=== PATIENT | female | born 1960 | race African-American/Black ===

== ENCOUNTER 2018-12-29 14:21 | Inpatient (IN) | payer BC, SELFPAY ==
[2018-12-29 15:19] LABS: Absolute Lymphocytes (CBC) 1.3 K/uL (0.7-4.9); Basophils % 0.5 % (0-1.3); Eosinophils % 0.5 % (0-4.4); Lymphocytes % 20.9 % (15.3-44.8); MPV 9.9 fL (7.6-11.3); Monocytes % 12.6 % (3.3-12.3)
[2018-12-29 15:20] LABS: Hematocrit 51.6 % (36.0-45.0)
[2018-12-29] MEDS ORDERED: NA CHLORIDE 0.9% 250 ML ONE (15:25)
[2018-12-29] MEDS ORDERED: LEVALBUTEROL 1.25 MG/3 ML NEB ONE (15:25)
[2018-12-29] MEDS ORDERED: METHYLPREDNISOLONE 125 MG INJ ONE (15:25)
[2018-12-29 15:39] LABS: Troponin (Emerg Dept Use Only) 0.06 ng/mL (0.0-0.045)
--- NOTE | 2018-12-29 16:14 | RAD REPORT ---
EXAM DESCRIPTION: RAD - Chest Single View - 12/29/2018 3:13 pm CLINICAL HISTORY: Cough;COPD Chest pain. COMPARISON: <Comparisons> FINDINGS: Portable technique limits examination quality. Interstitial lung markings are prominent which can indicate bronchitis, viral pneumonitis or mild int erstitial pulmonary edema. The heart is upper limit of normal in size. No displaced fractures.
--- NOTE | 2018-12-29 16:32 | ER ---
Nurse's Notes [facility] Name: Kathy Montalvo Age: 58 yrs Sex: Female : 1960 Arrival Date: 12/29/2018 Time: 14:24 Bed 13 Private MD: Diagnosis: Pulmonary edema;Hypoxemia;Chronic obstructive pulmonary disease, unspecified;Dyspnea, unspecified Presentation: 12/29 14:38 Presenting complaint: Patient states: SOB x 3 DAYS. Transition of care: patient was not bp received from another setting of care. Onset of symptoms was December 26, 2018. Risk Assessment: Do you want to hurt yourself or someone else? Patient reports no desire to harm self or others. Initial Sepsis Screen: Does the patient meet any 2 criteria? RR > 20 per min. HR > 90 bpm. Yes Does the patient have a suspected source of infection? Yes: Productive cough/pneumonia. Care prior to arrival: None. 14:38 Method Of Arrival: Ambulatory bp 14:38 Acuity: ABDIRIZAK 2 bp Historical: - Allergies: 14:40 No Known Allergies; bp - Home Meds: 14:40 fluticasone inhalation inhalation [Active]; Symbicort inhalation inhalation [Active]; bp - PMHx: 14:40 COPD; Hypertension; Asthma; bp - Immunization history:: Adult Immunizations up to date. - Social history:: Smoking status: Patient uses tobacco products, smokes one-half pack cigarettes per day. - Ebola Screening: : No symptoms or risks identified at this time. - Family history:: not pertinent. - Hospitalizations: : No recent hospitalization is reported. Screenin:54 Abuse screen: Denies threats or abuse. Denies injuries from another. Nutritional aj1 screening: No deficits noted. Tuberculosis screening: No symptoms or risk factors identified. Assessment: 14:52 General: Appears distressed, uncomfortable, Behavior is calm, cooperative, appropriate aj1 for age. Pain: Denies pain. Neuro: Level of Consciousness is awake, alert, obeys commands, Oriented to person, place, time, situation. Cardiovascular: Denies chest pain, Heart tones S1 S2 present Patient's skin is warm and dry. Rhythm is sinus tachycardia. 14:53 Respiratory: Reports shortness of breath at rest cough that is productive, labored aj1 breathing Airway is patent Respiratory effort is even, labored, with retractions, Respiratory pattern is regular, symmetrical, tachypnea Breath sounds with rhonchi in left posterior lower lobe and right posterior lower lobe Breath sounds with wheezes bilaterally. GI: No signs and/or symptoms were reported involving the gastrointestinal system. : No signs and/or symptoms were reported regarding the genitourinary system. EENT: No signs and/or symptoms were reported regarding the EENT system. Derm: No signs and/or symptoms reported regarding the dermatologic system. Skin is normal. Musculoskeletal: No signs and/or symptoms reported regarding the musculoskeletal system. Circulation, motion, and sensation intact. 14:55 Reassessment: Dr. Werner at bedside. aj1 15:55 Reassessment: Patient and/or family updated on plan of care and expected duration. Pain aj1 level reassessed. General: Appears in no apparent distress. comfortable, Behavior is calm, cooperative, appropriate for age. Pain: Denies pain. Neuro: Level of Consciousness is awake, alert, obeys commands, Oriented to person, place, time, situation. Cardiovascular: Patient's skin is warm and dry. Respiratory: Airway is patent Respiratory effort is even, unlabored, Respiratory pattern is regular, symmetrical. Derm: No signs and/or symptoms reported regarding the dermatologic system. Skin is pink, warm \T\ dry. normal. Musculoskeletal: No signs and/or symptoms reported regarding the musculoskeletal system. Circulation, motion, and sensation intact. 16:52 Reassessment: Patient appears in no apparent distress at this time. No changes from aj1 previously documented assessment. Patient and/or family updated on plan of care and expected duration. Pain level reassessed. Patient is alert, oriented x 3, equal unlabored respirations, skin warm/dry/pink. 17:27 Reassessment: Patient appears in no apparent distress at this time. No changes from aj1 previously documented assessment. Patient and/or family updated on plan of care and expected duration. Pain level reassessed. Patient is alert, oriented x 3, equal unlabored respirations, skin warm/dry/pink. 18:08 Reassessment: Patient and/or family updated on plan of care and expected duration. Pain aj1 level reassessed. General: Appears in no apparent distress. comfortable, Behavior is calm, cooperative, appropriate for age. Pain: Denies pain. Neuro: Level of Consciousness is awake, alert, obeys commands, Oriented to person, place, time, situation. Cardiovascular: Patient's skin is warm and dry. Respiratory: Airway is patent Respiratory effort is even, unlabored, Respiratory pattern is regular, symmetrical. GI: No signs and/or symptoms were reported involving the gastrointestinal system. Derm: No signs and/or symptoms reported regarding the dermatologic system. Skin is pink, warm \T\ dry. normal. Musculoskeletal: No signs and/or symptoms reported regarding the musculoskeletal system. Circulation, motion, and sensation intact. 19:05 Neuro: Level of Consciousness is awake, alert, obeys commands, Oriented to person, ea place, time, situation. Cardiovascular: Patient's skin is warm and dry. Respiratory: Airway is patent Respiratory effort is even, unlabored, Respiratory pattern is regular, symmetrical, Pt on O2 at 4 L per NC. GI: No signs and/or symptoms were reported involving the gastrointestinal system. Derm: Skin is pink, warm \T\ dry. 19:34 General: Appears in no apparent distress. Behavior is calm, cooperative, appropriate ea for age. Pain: Denies pain. 19:51 Reassessment: Report called to Alesia PEDERSEN. ea 19:55 Reassessment: Patient and/or family updated on plan of care and expected duration. Pain ea level reassessed. Pt alert and oriented, respirations even, pt remains tachypneic, pt admitted to fourth floor, pt left ED via wheelchair with O2 \T\ 4L per n/c, pt tolerating well. Vital Signs: 14:40 BP 193 / 99; Pulse 120; Resp 28; Temp 97.8; Pulse Ox 74% on R/A; Weight 93.44 kg; bp Height 5 ft. 6 in. (167.64 cm); 14:53 Pulse 123; Resp 28; Pulse Ox 94% on 4 lpm NC; aj1 15:55 BP 159 / 108; Pulse 114; Resp 25; Pulse Ox 99% on Nebulizer Mask; aj1 16:54 BP 163 / 102; Pulse 111; Resp 25; Pulse Ox 92% on 4 lpm NC; aj1 17:28 BP 154 / 103; Pulse 121; Resp 25; Pulse Ox 93% on 4 lpm NC; aj1 18:10 BP 161 / 109; Pulse 115; Resp 24; Pulse Ox 95% on 4 lpm NC; aj1 19:36 BP 146 / 91; Pulse 106; Resp 24; Pulse Ox 95% ; ea 14:40 Body Mass Index 33.25 (93.44 kg, 167.64 cm) bp ED Course: 14:24 Patient arrived in ED. mr 14:39 Triage completed. bp 14:40 Arm band placed on. bp 14:43 Deanna Whitmore, RN is Primary Nurse. aj1 14:52 Amilcar Werner MD is Attending Physician. rn 14:54 Patient has correct armband on for positive identification. Bed in low position. Call aj1 light in reach. Side rails up X 1. surveillance system monitor on. Pulse ox on. NIBP on. 14:54 No provider procedures requiring assistance completed. aj1 15:00 Initial lab(s) drawn, by me, sent to lab. First set of blood cultures drawn by me. dh3 Inserted saline lock: 20 gauge in right forearm, using aseptic technique. Blood collected. 15:14 XRAY CXR (1 view) In Process Unspecified. EDMS 15:14 EKG done, by cardiovascular surgical tech. reviewed by Amilcar Werner MD. 3 16:29 Marck Alvarez MD is Hospitalizing Provider. rn 19:50 Patient admitted, IV remains in place. ea Administered Medications: 15:23 Drug: SOLU-Medrol 125 mg Route: IVP; Site: right antecubital; aj1 16:20 Follow up: Response: No adverse reaction aj1 15:23 Drug: Xopenex (3) 1.25 mg Route: Inhalation; aj1 16:20 Follow up: Response: No adverse reaction aj1 15:23 Drug: NS 0.9% 250 ml Route: IV; Rate: 1 bolus; Site: right antecubital; aj1 16:20 Follow up: IV Status: Completed infusion; IV Intake: 250ml aj1 17:26 Drug: Lasix 40 mg Route: IVP; Site: right antecubital; aj1 18:33 Follow up: Response: No adverse reaction aj1 Intake: 16:20 IV: 250ml; Total: 250ml. aj1 Outcome: 16:31 Decision to Hospitalize by Provider. rn 19:36 Instructed on the need for admit, Demonstrated understanding of instructions. ea 19:50 Admitted to Med/surg accompanied by tech, room 408, with oxygen, with chart, Report ea called to Alesia PEDERSEN 19:50 Condition: stable 20:04 Patient left the ED. ea Signatures: Dispatcher [employer] EDDeanna Vasquez RN NUVIA guajardo Enriquez Erma mr WernerAmilcar ames MD MD rn Herrera, Patricia 3 Sola Murphy RN RN ea Peltier, Brian, RN Addie Sanchez 3 Corrections: (The following items were deleted from the chart) 14:54 14:52 Cardiovascular: Patient's skin is warm and dry. Rhythm is sinus tachycardia aj1 aj1
--- NOTE | 2018-12-29 16:32 | EDPHYS ---
Physician Documentation [facility] Name: Kathy Montalvo Age: 58 yrs Sex: Female : 1960 Arrival Date: 12/29/2018 Time: 14:24 Bed 13 Private MD: ED Physician Amilcar Werner HPI: 12/29 15:39 This 58 yrs old Black Female presents to ER via Ambulatory with complaints of Breathing rn Difficulty, Cough. 15:39 The patient has shortness of breath at rest, with light activity. Onset: The rn symptoms/episode began/occurred 5 day(s) ago. Duration: The symptoms are continuous. The patient's shortness of breath is aggravated by exertion, light activity, talking, walking. Associated signs and symptoms: Pertinent positives: productive cough, Pertinent negatives: fever, hemoptysis, loss of consciousness, vomiting. Severity of symptoms: At their worst the symptoms were moderate in the emergency department the symptoms are unchanged. The patient has experienced similar episodes in the past. The patient has not recently seen a physician. Historical: - Allergies: 14:40 No Known Allergies; bp - Home Meds: 14:40 fluticasone inhalation inhalation [Active]; Symbicort inhalation inhalation [Active]; bp - PMHx: 14:40 COPD; Hypertension; Asthma; bp - Immunization history:: Adult Immunizations up to date. - Social history:: Smoking status: Patient uses tobacco products, smokes one-half pack cigarettes per day. - Ebola Screening: : No symptoms or risks identified at this time. - Family history:: not pertinent. - Hospitalizations: : No recent hospitalization is reported. ROS: 15:39 Constitutional: Negative for fever, chills, and weight loss, Eyes: Negative for injury, rn pain, redness, and discharge, Neck: Negative for injury, pain, and swelling, Cardiovascular: Negative for palpitations, + edema, Respiratory: + sob and cough Abdomen/GI: Negative for abdominal pain, nausea, vomiting, diarrhea, and constipation, MS/Extremity: Negative for injury and deformity, Skin: Negative for injury, rash, and discoloration, Neuro: + generalized weakness Exam: 15:39 Constitutional: This is a well developed, well nourished patient who is awake, alert, rn + moderate tachypnea Head/Face: Normocephalic, atraumatic. Eyes: Pupils equal round and reactive to light, extra-ocular motions intact. Lids and lashes normal. Conjunctiva and sclera are non-icteric and not injected. Cornea within normal limits. Periorbital areas with no swelling, redness, or edema. ENT: dry MM Cardiovascular: tachycardic, regular, no murmur Respiratory: + tachypnea with coarse bilateral breath sounds and diffuse wheezing Abdomen/GI: soft, non-tender MS/ Extremity: Pulses equal, no cyanosis. Neurovascular intact. Full, normal range of motion. Equal circumference. 2+ pitting edema bilateral lower ext. Neuro: Awake and alert, GCS 15, oriented to person, place, time, and situation. Cranial nerves II-XII grossly intact. Motor strength 5/5 in all extremities. Sensory grossly intact. Vital Signs: 14:40 BP 193 / 99; Pulse 120; Resp 28; Temp 97.8; Pulse Ox 74% on R/A; Weight 93.44 kg; bp Height 5 ft. 6 in. (167.64 cm); 14:53 Pulse 123; Resp 28; Pulse Ox 94% on 4 lpm NC; aj1 15:55 BP 159 / 108; Pulse 114; Resp 25; Pulse Ox 99% on Nebulizer Mask; aj1 16:54 BP 163 / 102; Pulse 111; Resp 25; Pulse Ox 92% on 4 lpm NC; aj1 17:28 BP 154 / 103; Pulse 121; Resp 25; Pulse Ox 93% on 4 lpm NC; aj1 18:10 BP 161 / 109; Pulse 115; Resp 24; Pulse Ox 95% on 4 lpm NC; aj1 19:36 BP 146 / 91; Pulse 106; Resp 24; Pulse Ox 95% ; ea 14:40 Body Mass Index 33.25 (93.44 kg, 167.64 cm) bp MDM: 14:52 Patient medically screened. rn 16:28 Differential diagnosis: Anemia CHF exacerbation, Chronic Obstructive Pulmonary Disease rn pneumonia, pulmonary edema. Data reviewed: vital signs, nurses notes, lab test result(s), EKG, radiologic studies, and as a result, I will admit patient. Counseling: I had a detailed discussion with the patient and/or guardian regarding: the historical points, exam findings, and any diagnostic results supporting the discharge/admit diagnosis, lab results, radiology results, the need for further work-up and treatment in the hospital. Response to treatment: the patient's symptoms have mildly improved after treatment, and as a result, I will admit patient. Admission orders: after a detailed discussion of the patient's condition and case, the admit orders are written by me. ED course: Spoke with Dr. Alvarez, will admit with steroids and Dr. Clarke consult. . 12/29 15:01 Order name: Blood Culture Adult (2) rn 12/29 15:01 Order name: BMP; Complete Time: 16: rn 12/29 15:01 Order name: CBC with Diff; Complete Time: 16: rn 12/29 15:01 Order name: NT PRO-BNP; Complete Time: 16: rn 12/29 15:01 Order name: Troponin (emerg Dept Use Only); Complete Time: 16: rn 12/29 15:01 Order name: Procalcitonin; Complete Time: 16: rn 12/29 15:01 Order name: XRAY CXR (1 view); Complete Time: 16: rn 12/29 15:01 Order name: EKG; Complete Time: 15: rn 12/29 15:01 Order name: Cardiac monitoring; Complete Time: 15: rn 12/29 15:01 Order name: EKG - Nurse/Tech; Complete Time: 15: rn 12/29 15:01 Order name: IV Saline Lock; Complete Time: 15: rn 12/29 15:01 Order name: Labs collected and sent; Complete Time: 15: rn 12/29 15:01 Order name: O2 Per Protocol; Complete Time: 15: rn 12/29 15:01 Order name: O2 Sat Monitoring; Complete Time: 15: rn Administered Medications: 15:23 Drug: SOLU-Medrol 125 mg Route: IVP; Site: right antecubital; aj1 16:20 Follow up: Response: No adverse reaction 15:23 Drug: Xopenex (3) 1.25 mg Route: Inhalation; aj1 16:20 Follow up: Response: No adverse reaction 15:23 Drug: NS 0.9% 250 ml Route: IV; Rate: 1 bolus; Site: right antecubital; aj1 16:20 Follow up: IV Status: Completed infusion; IV Intake: 250ml aj1 17:26 Drug: Lasix 40 mg Route: IVP; Site: right antecubital; aj1 18:33 Follow up: Response: No adverse reaction aj1 Disposition: 12/29/18 16:31 Hospitalization ordered by Marck Alvarez for Inpatient Admission. Preliminary diagnosis are Pulmonary edema, Hypoxemia, Chronic obstructive pulmonary disease, unspecified, Dyspnea, unspecified. - Bed requested for Telemetry/MedSurg (Inpatient). - Status is Inpatient Admission. ea - Condition is Stable. - Problem is new. - Symptoms have improved. UTI on Admission? No Signatures: Dispatcher [employer] EDMS Gris Allen Angela RN RN aj1 Amilcar Werner MD MD rn Antunez, Elena, RN RN ea Peltier, Brian RN RN bp Corrections: (The following items were deleted from the chart) 17:18 16:31 Hospitalization Ordered by Marck Alvarez MD for Inpatient Admission. Preliminary bd diagnosis is Pulmonary edema; Hypoxemia; Chronic obstructive pulmonary disease, unspecified; Dyspnea, unspecified. Bed requested for Telemetry/MedSurg (Inpatient). Status is Inpatient Admission. Condition is Stable. Problem is new. Symptoms have improved. UTI on Admission? No. rn 20:04 17:18 12/29/2018 16:31 Hospitalization Ordered by Marck Alvarez MD for Inpatient ea Admission. Preliminary diagnosis is Pulmonary edema; Hypoxemia; Chronic obstructive pulmonary disease, unspecified; Dyspnea, unspecified. Bed requested for Telemetry/MedSurg (Inpatient). Status is Inpatient Admission. Condition is Stable. Problem is new. Symptoms have improved. UTI on Admission? No. bd
[2018-12-29] MEDS ORDERED: FUROSEMIDE 20 MG/ 2ML VIAL ONE (17:24)
[2018-12-29] MEDS ORDERED: IPRATROPIUM BROM 0.5MG/2.5ML NEB PRN (20:19)
[2018-12-29] MEDS ORDERED: ONDANSETRON 4 MG/2 ML VIAL IV PRN (20:19)
[2018-12-29] MEDS: NICOTINE 7 MG/PAT TD SCH (21:55)
[2018-12-29] MEDS: METHYLPREDNISOLONE 40 MG INJ IV SCH (21:55)
--- NOTE | 2018-12-29 22:23 | EKG ---
Test Date: 2018-12-29 Test Time: 15:07:[address] Judge: ENEDINA MEASUREMENT RESULTS: Intervals: Rate: 117 WV: 158 QRSD: 78 QT: 318 QTc: 443 [place]: P: 79 WV: 158 QRS: 63 T: 79 INTERPRETIVE STATEMENTS: Sinus tachycardia Biatrial enlargement Anterior infarct, age undetermined Abnormal ECG No previous ECG available for comparison Electronically Signed On 12-29-18 22:22:31 CDT by Tobin Briggs
[2018-12-30] MEDS: ALBUTEROL 2.5 MG/3 ML NEB SOL NEB PRN ×2 (00:56→04:50)
[2018-12-30] MEDS: METHYLPREDNISOLONE 40 MG INJ IV SCH (01:00)
[2018-12-30 01:05] LABS: Urine Appearance CLEAR; Urine Bilirubin NEGATIVE (NEG); Urine Blood 2+ (NEG); Urine Color YELLOW; Urine Glucose 2+ (NEG); Urine Protein 2+ (NEG); Urine pH 5.5 (5.0-7.0)
[2018-12-30 01:09] LABS: Urine Microscopic Reflex ORDER UMIC
[2018-12-30 02:30] LABS: Urine Bacteria <20 /HPF (<20); Urine Culture Reflex Order NOT NEEDED; Urine RBC <5 /HPF (NONE SEEN)
[2018-12-30 04:28] LABS: Absolute Lymphocytes (CBC) 0.6 K/uL (0.7-4.9); Basophils % 0.6 % (0-1.3); MPV 10.1 fL (7.6-11.3); Monocytes % 2.7 % (3.3-12.3); RBC Red Blood Cell Count 6.55 M/uL (3.86-4.86)
[2018-12-30 04:50] LABS: Potassium 4.2 mmol/L (3.5-5.1)
[2018-12-30] MEDS ORDERED: PNEUMOCOCCAL VACCINE 0.5 ML IMVAC ONE (08:00)
--- NOTE | 2018-12-30 08:36 | P.CNS ---
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 coughing up some sputum Allergies No Known Allergies Allergy (Unverified 12/29/18 17:50) Home Medications: Budesonide/Formoterol Fumarate [Symbicort 160-4.5 Mcg Inhaler] 1 puff IH BID Fluticasone/Salmeterol [Fluticasone-Salmeterol 113-14] 1 puff IH BID 12/30/18 Spironolact/Hydrochlorothiazid [Aldactazide 25-25 Tablet] 1 each PO DAILY - Past Medical/Surgical History Diabetic: No -: COPD -: HTN - Social History Smoking Status: Current every day smoker Alcohol use: No CD- Drugs: No Caffeine use: No Place of Residence: Home Review of Systems 10-point ROS is otherwise unremarkable General: Weakness Respiratory: Cough, Shortness of Breath Cardiovascular: Edema Physical Examination Temp Pulse Resp BP Pulse Ox 97.9 F 104 H 22 H 168/89 H 94 12/30/18 00:00 12/30/18 00:00 12/30/18 00:00 12/30/18 00:55 12/30/18 00:00 General: Alert Neck: Supple Respiratory: Rhonchi/gurgles Cardiovascular: Normal S1 S2, Edema (2+ edema) Gastrointestinal: Normal bowel sounds, Soft and benign Laboratory Data (last 24 hrs) 12/29/18 15:00: WBC 6.0, Hgb 17.7 H, Hct 51.6 H, Plt Count 128 L 12/29/18 15:00: Sodium 145, Potassium 4.0, BUN 16, Creatinine 0.97, Glucose 176 H - Problems (1) COPD exacerbation Current Visit: Yes Status: Acute Plan: Patient is 58 years of age active smoker history of COPD admitted with an exacerbation chest x-rays clear patient is mildly polycythemic no evidence of sepsis at an antibiotic in addition to long-acting nebulized bronchodilator vital signs are stable (2) Sleep apnea Current Visit: Yes Status: Acute Plan: Patient complains of loud snoring excessive daytime somnolence at risk for sleep apnea and will need a sleep study as an outpatient
[2018-12-30] MEDS: ARFORMOTEROL TARTRATE 15 MCG/2 ML VIAL.NEB NEB SCH ×2 (08:45→19:40)
[2018-12-30] MEDS: IPRATROPIUM BROM 0.5MG/2.5ML NEB SCH ×3 (08:45→19:40)
[2018-12-30] MEDS ORDERED: HYDROCHLOROTHIAZID PO SCH (09:00)
[2018-12-30] MEDS ORDERED: SPIRONOLACT PO SCH (09:00)
[2018-12-30] MEDS: hydroCHLOROthiazide 25 MG TAB PO SCH (10:24)
[2018-12-30] MEDS: predniSONE 20 MG TAB PO SCH ×2 (10:25→20:08)
[2018-12-30] MEDS: levoFLOXacin 500 MG TAB PO SCH (10:25)
[2018-12-30] MEDS: NICOTINE 7 MG/PAT TD SCH (10:25)
[2018-12-30] MEDS: ASPIRIN EC 81 MG TAB PO SCH (10:25)
[2018-12-30] MEDS: SPIRONOLACTONE 25 MG TABLET PO SCH (10:35)
--- NOTE | 2018-12-30 13:32 | ECHO ---
HEIGHT: 5 ft 6 in WEIGHT: 220 lb 0 oz DATE OF STUDY: 12/30/[address]: Amilcar Werner JR, MD 2-DIMENSIONAL: YES M.MODE: YES DOPPLER: YES COLOR FLOW: YES TDS: NO PORTABLE: NO DEFINITY: NO BUBBLE STUDY: NO DIAGNOSIS: PULMONARY EDEMA, HYPOXEMIA CARDIAC HISTORY: CATHERIZATION: NO SURGERY: NO PROSTHETIC VALVE: NO PACEMAKER: NO MEASUREMENTS (cm) DIASTOLIC (NORMALS) SYSTOLIC (NORMALS) IVSd 1.3 (0.6-1.2) LA Diam 3.3 (1.9-4.0) LVEF 62% LVIDd 3.2 (3.5-5.7) LVIDs 2.2 (2.0-3.5) %FS 32% LVPWd 1.5 (0.6-1.2) Ao Diam 2.7 (2.0-3.7) 2 DIMENSIONAL ASSESSMENT: RIGHT ATRIUM: NORMAL LEFT ATRIUM: NORMAL RIGHT VENTRICLE: NORMAL LEFT VENTRICLE: NORMAL TRICUSPID VALVE: NORMAL MITRAL VALVE: NORMAL PULMONIC VALVE: NORMAL AORTIC VALVE: NORMAL PERICARDIAL EFFUSION: NONE AORTIC ROOT: NORMAL LEFT VENTRICULAR WALL MOTION: NORMAL DOPPLER/COLOR FLOW: TRACE MITRAL AND TRICUSPID REGURGITATION. COMMENTS: TRACE MITRAL AND TRICUSPID REGURGITATION. NORMAL RIGHT VENTRICULAR SYSTOLIC PRESSURE. NORMAL LEFT VENTRICULAR SIZE AND FUNCTION. NO WALL MOTION ABNORMALITY. NO EFFUSION. TECHNOLOGIST: Brianda RUIZ
--- NOTE | 2018-12-30 16:58 | HP ---
Date of Admission: 12/29/2018 Chief Complaint: Dyspnea, wheezing. History Of Present Illness: A 58-year-old female who is known to have severe COPD, was brought to [facility] emergency room because of wheezing. The patient had evaluation done. There was no evidence of pne umonia. The patient ran out of her O2 in her O2 tank. The patient denied any history of chest pain or other cardiac symptoms. The patient is admitted. Past Medical History: Positive for COPD. The patient has been having swelling of the legs for which she takes diuretics. The patient does not have any history of diabetes or other chronic illness. Family History: Negative. Medications: The patient is on Symbicort, home O2, and albuterol. Allergies: NONE. Review of Systems: The patient denied any chest pain, hemoptysis. Physical Examination: General: Revealed a 58-year-old obese female with audible wheezing. Vital Signs: Normal. HEENT: Negative. Neck: Supple. JVD negative. Chest: Bilateral wheezes. Heart: Regular. Abdomen: Soft. Extremities: Bilateral pedal edema noted. Assessment: 1.Chronic obstructive pulmonary disease exacerbation. 2.Chronic obstructive pulmonary disease. 3.Rule out cor pulmonale. Plan: The patient is already on oral diuretics. She may need a stronger dose. She is on IV steroid s. Pulmonary consultation to be done today. ELDA/PAULY Voice ID: [id number]
[2018-12-31] MEDS: ALBUTEROL 2.5 MG/3 ML NEB SOL NEB PRN (01:25)
[2018-12-31] MEDS: IPRATROPIUM BROM 0.5MG/2.5ML NEB SCH ×4 (01:25→19:45)
[2018-12-31 06:38] LABS: Potassium 4.5 mmol/L (3.5-5.1); Thyroid Stimulating Hormone 0.413 uIU/mL (0.360-3.740)
[2018-12-31] MEDS: ARFORMOTEROL TARTRATE 15 MCG/2 ML VIAL.NEB NEB SCH ×2 (07:40→19:45)
[2018-12-31] MEDS: ASPIRIN EC 81 MG TAB PO SCH (09:03)
[2018-12-31] MEDS: hydroCHLOROthiazide 25 MG TAB PO SCH (09:03)
[2018-12-31] MEDS: NICOTINE 7 MG/PAT TD SCH (09:04)
[2018-12-31] MEDS: levoFLOXacin 500 MG TAB PO SCH (09:04)
[2018-12-31] MEDS: SPIRONOLACTONE 25 MG TABLET PO SCH (09:04)
[2018-12-31] MEDS: predniSONE 20 MG TAB PO SCH ×2 (09:05→20:58)
--- NOTE | 2019-01-01 01:19 | PN ---
The patient has still some wheezing, however, she is able to walk in the room. Her sputum is scanty. I spoke to the staff nurse regarding her need for portable oxygen, etc. Social service is planning to find a solution for her. Meanwhile, she will be continued on the same management. ELDA/PAULY Voice ID: [id number] Report ID: [id number]
[2019-01-01] MEDS: ALBUTEROL 2.5 MG/3 ML NEB SOL NEB PRN (01:45)
[2019-01-01] MEDS: IPRATROPIUM BROM 0.5MG/2.5ML NEB SCH ×2 (01:45→09:00)
[2019-01-01 06:46] VITALS: BMI 35.9
[2019-01-01] MEDS: hydroCHLOROthiazide 25 MG TAB PO SCH (08:51)
[2019-01-01] MEDS: ASPIRIN EC 81 MG TAB PO SCH (08:52)
[2019-01-01] MEDS: NICOTINE 7 MG/PAT TD SCH (08:52)
[2019-01-01] MEDS: levoFLOXacin 500 MG TAB PO SCH (08:52)
[2019-01-01] MEDS: predniSONE 20 MG TAB PO SCH (08:52)
--- NOTE | 2019-01-01 08:53 | P.PN ---
Subjective Date of Service: 01/01/19 Chief Complaint: COPD exacerbation Patient has improved significantly since admission still has some shortness of breath Review of Systems General: Weakness Respiratory: Shortness of Breath Physical Examination - Vital Signs Temperature: 97.8 F Blood Pressure: 188/89 Pulse: 101 Respirations: 24 Pulse Ox (%): 92 - Physical Exam General: Alert, In no apparent distress, Oriented x3 HEENT: Atraumatic Respiratory: Clear to auscultation bilaterally, Diminished Cardiovascular: No edema, Normal S1 S2 Assessment & Plan - Problems (Diagnosis) (1) COPD exacerbation Current Visit: Yes Status: Acute Plan: Patient is 58 years of age admitted with COPD exacerbation can be discharged home low-dose prednisone 10 mg twice a day continue with bronchodilator 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
[2019-01-01] MEDS: SPIRONOLACTONE 25 MG TABLET PO SCH (08:55)
[2019-01-01] MEDS: ARFORMOTEROL TARTRATE 15 MCG/2 ML VIAL.NEB NEB SCH (09:00)
[2019-01-01] MEDS ORDERED: AMLODIPINE 5 MG TAB PO ONE (10:14)
[2019-01-01 11:10] VITALS: O2SAT 93
[2019-01-01 12:06] VITALS: BP 156/90; TEMP 98.5
== END 2019-01-01 12:41 | disposition home or self-care (01) | DRG 192 ==
LOC: ER 14:21 → ERHOLD 16:34 → 4TH 19:48
PROVIDERS: ADMIT Internal Medicine; ATTEND Internal Medicine
DX: J44.1 Chronic obstructive pulmonary disease with (acute) exacerbation (principal); Z99.81 Dependence on supplemental oxygen; I10 Essential (primary) hypertension; F17.210 Nicotine dependence, cigarettes, uncomplicated; G47.30 Sleep apnea, unspecified; E66.9 Obesity, unspecified; Z68.35 Body mass index [BMI] 35.0-35.9, adult; Z23 Encounter for immunization
CPT/HCPCS: 36415; 71045; 80048; 81003; 81015; 83880; 84145; 84443; 84484; 85025; 87040; 90471; 90670; 93005; 93306; 94640; 94760; 96365; 96375; 99285; J1940; J2920; J2930; J7512; J7605

== ENCOUNTER 2019-05-14 12:08 | Inpatient (IN) | payer SELFPAY ==
[2019-05-14] MEDS ORDERED: METHYLPREDNISOLONE 125 MG INJ ONE (12:35)
[2019-05-14] MEDS ORDERED: IPRATROPIUM BROM 0.5MG/2.5ML ONE (12:36)
[2019-05-14] MEDS ORDERED: ALBUTEROL 2.5 MG/3 ML NEB SOL ONE (12:36)
[2019-05-14 12:56] LABS: Absolute Lymphocytes (CBC) 1.3 K/uL (0.7-4.9); Basophils % 0.5 % (0-1.3); Hematocrit 53.9 % (36.0-45.0); Lymphocytes % 12.2 % (15.3-44.8); MPV 8.7 fL (7.6-11.3); RBC Red Blood Cell Count 6.13 M/uL (3.86-4.86)
[2019-05-14 12:58] LABS: Protime INR 1.04
--- NOTE | 2019-05-14 13:01 | RAD REPORT ---
EXAM DESCRIPTION: Adri Single View05/14/2019 12:55 pm CLINICAL HISTORY: Shortness of breath COMPARISON: December 2018 FINDINGS: The lungs appear clear of acute infiltrate. The heart is normal size IMPRESSION: No acute abnormalities displayed
[2019-05-14 13:02] LABS: ALT/SGPT 40 U/L (12-78); AST/SGOT 25 U/L (15-37); Albumin 3.4 g/dL (3.4-5.0); Alkaline Phosphatase 138 U/L (45-117); BUN Blood Urea Nitrogen 17 mg/dL (7-18); Bicarbonate 35 mmol/L (21-32); Bilirubin Direct 0.2 mg/dL (0-0.2); Bilirubin Total 0.6 mg/dL (0.2-1.0); CKMB Creatine Kinase MB 4.5 ng/mL (0.3-3.6); Creatine Phosphokinase 186 U/L (26-192); Glucose Level 200 mg/dL (74-106); Potassium 3.6 mmol/L (3.5-5.1); Protein, Total 8.2 g/dL (6.4-8.2); Sodium Level 139 mmol/L (136-145); Troponin (Emerg Dept Use Only) < 0.02 ng/mL (0.0-0.045)
[2019-05-14] MEDS ORDERED: Levofloxacin500mg IV 500 MG/100 ML BAG IV ONE (13:03)
[2019-05-14 13:35] LABS: Arterial Blood Carboxyhemoglob 5.4 % (0-1.5); Blood Gas Oxyhemoglobin 84.1 % (94-97); Blood O2 Saturation 89.7 % (92-98.5)
--- NOTE | 2019-05-14 14:10 | RAD REPORT ---
EXAM DESCRIPTION: CT - Chest For Pe Angio - 05/14/2019 1:59 pm CLINICAL HISTORY: Shortness of breath COMPARISON: None. TECHNIQUE: Dynamically enhanced axial 3 mm thick images of the chest were obtained during administra tion of <100> mL Isovue 370 IV contrast. Coronal and oblique reconstruction images were generated and reviewed. Exam utilizes a protocol for optimal evaluation of pulmonary arterial tree. Maximum intensity projections 3D imaging was utilized All CT scans are performed using dose optimization technique as appropriate and may include automated exposure control or mA/KV adjustment according to patient size. FINDINGS: A pulmonary embolus is not seen. A thoracic aortic aneurysm is not noted. A pleural effusion is not seen. A pericardial effusion is not seen. Mild left lower lobe opacities IMPRESSION: Negative for a pulmonary embolism. Mild left lower lobe opacities may indicate a mild pneumonia
--- NOTE | 2019-05-14 14:24 | EDPHYS ---
Physician Documentation [facility] Name: Kathy Montalvo Age: 59 yrs Sex: Female : 1960 Arrival Date: 05/14/2019 Time: 12:11 Bed 4 Private MD: ED Physician Shelton Royal HPI: 05/14 12:28 This 59 yrs old Black Female presents to ER via Ambulatory with complaints of Shortness jr8 Of Breath. 12:28 The patient has shortness of breath at rest. Onset: The symptoms/episode began/occurred jr8 gradually, 4 day(s) ago. Duration: The symptoms are continuous, and are steadily getting worse. The patient's shortness of breath is aggravated by coughing, light activity, walking. Associated signs and symptoms: Pertinent positives: productive cough, fever. Severity of symptoms: At their worst the symptoms were moderate in the emergency department the symptoms are unchanged. The patient has not experienced similar symptoms in the past. The patient has not recently seen a physician. History of COPD with intermittent use of oxygen at home as needed. Now requiring it more frequently. Stated that she had cold like symptoms on Saturday that is much worse now and cannot tolerate the shortness of breath . Historical: - Allergies: 12:16 No Known Allergies; hb - Home Meds: 12:16 fluticasone inhalation [Active]; ProAir HFA inhalation inhalation [Active]; Albuterol hb Nebulizer [Active]; - PMHx: 12:16 COPD; Asthma; Hypertension; hb - Immunization history:: Adult Immunizations up to date. - Social history:: Smoking status: Patient/guardian denies using tobacco. - Ebola Screening: : No symptoms or risks identified at this time. ROS: 12:28 Eyes: Negative for injury, pain, redness, and discharge, ENT: Negative for injury, jr8 pain, and discharge, Neck: Negative for injury, pain, and swelling, Cardiovascular: Negative for chest pain, palpitations, and edema, Abdomen/GI: Negative for abdominal pain, nausea, vomiting, diarrhea, and constipation, Back: Negative for injury and pain, MS/Extremity: Negative for injury and deformity, Skin: Negative for injury, rash, and discoloration, Neuro: Negative for headache, weakness, numbness, tingling, and seizure. 12:28 Respiratory: Positive for cough, dyspnea on exertion, shortness of breath. Exam: 12:28 Eyes: Pupils equal round and reactive to light, extra-ocular motions intact. Lids and jr8 lashes normal. Conjunctiva and sclera are non-icteric and not injected. Cornea within normal limits. Periorbital areas with no swelling, redness, or edema. ENT: Nares patent. No nasal discharge, no septal abnormalities noted. Tympanic membranes are normal and external auditory canals are clear. Oropharynx with no redness, swelling, or masses, exudates, or evidence of obstruction, uvula midline. Mucous membranes moist. Neck: Trachea midline, no thyromegaly or masses palpated, and no cervical lymphadenopathy. Supple, full range of motion without nuchal rigidity, or vertebral point tenderness. No Meningismus. Abdomen/GI: Soft, non-tender, with normal bowel sounds. No distension or tympany. No guarding or rebound. No evidence of tenderness throughout. Back: No spinal tenderness. No costovertebral tenderness. Full range of motion. Skin: Warm, dry with normal turgor. Normal color with no rashes, no lesions, and no evidence of cellulitis. MS/ Extremity: Pulses equal, no cyanosis. Neurovascular intact. Full, normal range of motion. 12:28 Cardiovascular: Rate: tachycardic, Rhythm: regular, Pulses: Pulses are 2+ in right radial artery and left radial artery. Heart sounds: normal, normal S1and S2, no S3 or S4, no murmur, no rub, no gallop, Edema: 2+ edema to level of left midcalf, left ankle, left foot, right midcalf, right ankle and right foot, JVD: is not appreciated. 12:28 Respiratory: mild respiratory distress is noted, Respirations: labored breathing, tachypnea, Breath sounds: decreased breath sounds, that are mild, are scattered, Respiratory rate: 24 Vital Signs: 12:14 BP 153 / 88; Pulse 133; Resp 24; Temp 98.3; Pulse Ox 75% on R/A; Weight 107.5 kg; hb Height 5 ft. 6 in. (167.64 cm); Pain 8/10; 12:16 Pulse Ox 93% on 4 lpm NC; aa5 12:45 BP 145 / 84; Pulse 122; Resp 26 S; Pulse Ox 100% on Nebulizer Mask; aa5 13:00 BP 120 / 80; Pulse 112; Resp 26 S; Pulse Ox 96% on 3 lpm NC; aa5 14:00 BP 130 / 84; Pulse 115; Resp 24 S; Pulse Ox 99% on BiPAP; aa5 15:10 BP 124 / 82; Pulse 110; Resp 20 S; Pulse Ox 99% on BiPAP; aa5 16:30 BP 130 / 82; Pulse 104; Resp 18 S; Temp 98.0(TE); Pulse Ox 99% on BiPAP; aa5 17:20 BP 133 / 82; Pulse 100; Resp 22 S; Temp 98.0(TE); Pulse Ox 98% on BiPAP; Pain 0/10; aa5 12:14 Body Mass Index 38.25 (107.50 kg, 167.64 cm) hb MDM: 12:30 Patient medically screened. jr8 14:15 Data reviewed: vital signs, nurses notes, lab test result(s), EKG, radiologic studies, [facility] [place] CT scan, plain films. Data interpreted: Pulse oximetry: on room air is 75 %. Interpretation: hypoxia. Plan: will initiate a nebulizer treatment. Counseling: I had a detailed discussion with the patient and/or guardian regarding: the historical points, exam findings, and any diagnostic results supporting the discharge/admit diagnosis, lab results, radiology results, the need for further work-up and treatment in the hospital. Physician consultation: Marck Alvarez MD was called at 14:15, was contacted at 14:15, regarding admission, to the telemetry unit. consult, patient's condition, and will see patient would like consultation with Dr. Clarke. 05/14 12:24 Order name: ABG; Complete Time: 14:03 05/14 12:24 Order name: Basic Metabolic Panel; Complete Time: 13:16 05/14 12:24 Order name: Blood Culture Adult (2) [facility] [place] 05/14 12:24 Order name: CBC with Diff; Complete Time: 13:16 05/14 12:24 Order name: Ckmb; Complete Time: 13:16 05/14 12:24 Order name: CPK; Complete Time: 13:16 05/14 12:24 Order name: Lactate; Complete Time: 13:22 05/14 12:24 Order name: LFT's; Complete Time: 13:16 [facility] [place] 05/14 12:24 Order name: Procalcitonin; Complete Time: 13:34 [facility] [place] 05/14 12:24 Order name: Protime (+inr); Complete Time: 13:16 [facility] [place] 05/14 12:24 Order name: Ptt, Activated; Complete Time: 13:16 [facility] [place] 05/14 12:24 Order name: Troponin (emerg Dept Use Only); Complete Time: 13:16 [facility] [place] 05/14 12:43 Order name: Glucose, Ancillary Testing; Complete Time: 12:50 [facility] 05/14 13:17 Order name: Flu; Complete Time: 14:03 [facility] [place] 05/14 12:24 Order name: Chest Single View XRAY; Complete Time: 13:16 [facility] [place] 05/14 12:24 Order name: Accucheck; Complete Time: 12:32 [facility] [place] 05/14 12:24 Order name: Cardiac monitoring; Complete Time: 12:32 [facility] [place] 05/14 12:24 Order name: EKG - Nurse/Tech; Complete Time: 12:32 [facility] [place] 05/14 12:26 Order name: EKG; Complete Time: 12:27 [facility] 05/14 13:18 Order name: DD; Complete Time: 13:41 [facility] [place] 05/14 13:40 Order name: BIPAP [facility] [place] 05/14 13:41 Order name: CT Chest For PE Angio; Complete Time: 14:23 [facility] [place] 05/14 15:32 Order name: CONS Physician Consult [facility] 05/14 15:33 Order name: Urine Dipstick-Ancillary [facility] 05/14 17:48 Order name: Lactate Sepsis 2 HR Follow-up; Complete Time: 06:25 [facility] 05/14 12:24 Order name: IV Saline Lock - Large Bore; Complete Time: 12:32 [facility] [place] 05/14 12:24 Order name: Labs collected and sent; Complete Time: 12:32 [facility] [place] 05/14 12:24 Order name: O2 Per Protocol; Complete Time: 12:32 [facility] [place] 05/14 12:24 Order name: O2 Sat Monitoring; Complete Time: 12:32 [facility] [place] 05/14 12:24 Order name: Urine Dipstick-Ancillary (obtain specimen); Complete Time: 15:39 [facility] [place] Administered Medications: 12:40 Drug: Albuterol - atroVENT (3:1) (2.5 mg - 0.5 mg) 3 ml Route: Nebulizer; aa5 13:00 Follow up: Response: No adverse reaction aa5 12:40 Drug: SOLU-Medrol 125 mg Route: IVP; Site: right forearm; aa5 12:50 Follow up: Response: No adverse reaction aa5 12:54 Drug: LevaQUIN 500 mg Volume: 100 ml; Route: IVPB; Infused Over: 60 mins; Site: right jl7 forearm; 13:54 Follow up: Response: No adverse reaction; IV Status: Completed infusion aa5 14:45 Drug: NS 0.9% 1000 ml Route: IV; Rate: 1000 ml; Site: right forearm; aa5 16:30 Follow up: IV Intake: 1000ml aa5 14:45 Drug: NS 0.9% 1000 ml Route: IV; Rate: 1000 ml; Site: right forearm; aa5 15:30 Follow up: IV Status: Completed infusion; IV Intake: 1000ml aa5 Point of Care Testing: Blood Glucose: 12:32 Blood Glucose: 224 mg/dL; jl7 Ranges: Critical Glucose Levels:Adult <50 mg/dl or >400 mg/dl <40 mg/dl or >180 mg/dl Disposition: 05/15 09:16 Co-signature as Attending Physician, Shelton Royal MD I agree with the assessment and kdr plan of care. Disposition: 05/14/19 14:23 Hospitalization ordered by Marck Alvarez for Inpatient Admission. Preliminary diagnosis are Chronic obstructive pulmonary disease with (acute) exacerbation, Acute respiratory failure with hypoxia, Dehydration, Pneumonia due to other specified bacteria. - Bed requested for Telemetry/MedSurg (Inpatient). - Status is Inpatient Admission. iw - Condition is Stable. - Problem is new. - Symptoms have improved. UTI on Admission? No Signatures: Dispatcher [employer] EDMS Shelton Royal MD MD kdr Cheli Haines RN RN Leonora Huffman RN RN aa5 Andre Streeter PA PA jr8 Arabella Alejandro RN RN Twin Lynch RN RN jl7 Cristin Sevilla Corrections: (The following items were deleted from the chart) 05/14 14:38 14:23 Hospitalization Ordered by Marck Alvarez MD for Inpatient Admission. Preliminary eb diagnosis is Chronic obstructive pulmonary disease with (acute) exacerbation; Acute respiratory failure with hypoxia; Dehydration; Pneumonia due to other specified bacteria. Bed requested for Telemetry/MedSurg (Inpatient). Status is Inpatient Admission. Condition is Stable. Problem is new. Symptoms have improved. UTI on Admission? No. jr8 16:36 14:38 05/14/2019 14:23 Hospitalization Ordered by Marck Alvarez MD for Inpatient eb Admission. Preliminary diagnosis is Chronic obstructive pulmonary disease with (acute) exacerbation; Acute respiratory failure with hypoxia; Dehydration; Pneumonia due to other specified bacteria. Bed requested for Telemetry/MedSurg (Inpatient). Status is Inpatient Admission. Condition is Stable. Problem is new. Symptoms have improved. UTI on Admission? No. eb 17:54 16:36 05/14/2019 14:23 Hospitalization Ordered by Marck Alvarez MD for Inpatient iw Admission. Preliminary diagnosis is Chronic obstructive pulmonary disease with (acute) exacerbation; Acute respiratory failure with hypoxia; Dehydration; Pneumonia due to other specified bacteria. Bed requested for Telemetry/MedSurg (Inpatient). Status is Inpatient Admission. Condition is Stable. Problem is new. Symptoms have improved. UTI on Admission? No. eb
--- NOTE | 2019-05-14 14:24 | ER ---
Nurse's Notes [facility] Name: Kathy Montalvo Age: 59 yrs Sex: Female : 1960 Arrival Date: 05/14/2019 Time: 12:11 Bed 4 Private MD: Diagnosis: Chronic obstructive pulmonary disease with (acute) exacerbation;Acute respiratory failure with hypoxia;Dehydration;Pneumonia due to other specified bacteria Presentation: 05/14 12:13 Presenting complaint: SOB and intermittent sharp left sided chest pain x 3-4 days. hb Transition of care: patient was not received from another setting of care. Onset of symptoms was May 11, 2019. Risk Assessment: Do you want to hurt yourself or someone else? Patient reports no desire to harm self or others. Care prior to arrival: None. 12:13 Method Of Arrival: Ambulatory 12:13 Acuity: ABDIRIZAK 2 12:15 Initial Sepsis Screen: Does the patient meet any 2 criteria? RR > 20 per min. HR > 90 aa5 bpm. Yes Does the patient have a suspected source of infection? Yes: Productive cough/pneumonia If YES to both, name of provider notified: Shelton Royal MD. Historical: - Allergies: 12:16 No Known Allergies; hb - Home Meds: 12:16 fluticasone inhalation [Active]; ProAir HFA inhalation inhalation [Active]; Albuterol hb Nebulizer [Active]; - PMHx: 12:16 COPD; Asthma; Hypertension; hb - Immunization history:: Adult Immunizations up to date. - Social history:: Smoking status: Patient/guardian denies using tobacco. - Ebola Screening: : No symptoms or risks identified at this time. Screenin:20 Abuse screen: Denies threats or abuse. Nutritional screening: No deficits noted. aa5 Tuberculosis screening: No symptoms or risk factors identified. Fall Risk None identified. Assessment: 12:16 General: Appears uncomfortable, Behavior is calm, cooperative. Pain: Denies pain. aa5 Neuro: Level of Consciousness is awake, alert, obeys commands, Oriented to person, place, time, situation. Cardiovascular: Heart tones S1 S2 present Edema 2+ pitting edema noted to shana lower extremities, pt states "my legs are always swollen and they are about the same right now" Rhythm is sinus tachycardia. Respiratory: Reports shortness of breath cough Airway is patent Respiratory effort is labored, Respiratory pattern is tachypnea Breath sounds are diminished bilaterally. GI: Abdomen is round Bowel sounds present X 4 quads. Abd is soft and non tender X 4 quads. : No signs and/or symptoms were reported regarding the genitourinary system. EENT: No signs and/or symptoms were reported regarding the EENT system. Derm: Skin is dry, Skin is normal, Skin temperature is warm. Musculoskeletal: Range of motion: intact in all extremities. 12:55 Neuro: Level of Consciousness is awake, alert, obeys commands, Oriented to person, aa5 place, time, situation. Respiratory: Airway is patent Respiratory effort is labored, Respiratory pattern is tachypnea. Derm: Skin is dry, Skin is normal, Skin temperature is warm. 12:55 Reassessment: Pt reports SOB has improved. . aa5 13:40 Reassessment: Bi-PAP placed by RT. Bi-PAP settings: IPAP 13, EPAP 6, Rate 14, O2 40%. . aa5 13:54 Reassessment: Pt tolerating Bi-PAP well. Awaiting disposition. . Neuro: Level of aa5 Consciousness is awake, alert, obeys commands, Oriented to person, place, time, situation. Respiratory: Airway is patent Respiratory effort is even, unlabored, Respiratory pattern is regular, symmetrical. Derm: Skin is dry, Skin is normal, Skin temperature is warm. 15:10 Reassessment: Pt assisted with bedside commode, pt tolerated well. Urine specimen aa5 collected. Pt placed back in bed. Bed remains in low positions, side rails x 2, call sherman within reach. . 15:10 Neuro: Level of Consciousness is awake, alert, obeys commands, Oriented to person, aa5 place, time, situation. Respiratory: Airway is patent Respiratory effort is even, unlabored, Respiratory pattern is regular, symmetrical. Derm: Skin is dry, Skin is normal, Skin temperature is warm. 15:10 Reassessment: Pt notified of wait time for room assignment, pt verbalized aa5 understanding. . 16:00 Reassessment: Pt resting in bed with eyes closed, respirations even and unlabored, skin aa5 is normal/warm/dry. . 16:33 Reassessment: Lab at bedside collecting repeat lactate at this time . aa5 17:30 Neuro: Level of Consciousness is awake, alert, obeys commands, Oriented to person, aa5 place, time, situation. Respiratory: Airway is patent Respiratory effort is even, unlabored, Respiratory pattern is regular, symmetrical. Derm: Skin is dry, Skin is normal, Skin temperature is warm. Vital Signs: 12:14 BP 153 / 88; Pulse 133; Resp 24; Temp 98.3; Pulse Ox 75% on R/A; Weight 107.5 kg; hb Height 5 ft. 6 in. (167.64 cm); Pain 8/10; 12:16 Pulse Ox 93% on 4 lpm NC; aa5 12:45 BP 145 / 84; Pulse 122; Resp 26 S; Pulse Ox 100% on Nebulizer Mask; aa5 13:00 BP 120 / 80; Pulse 112; Resp 26 S; Pulse Ox 96% on 3 lpm NC; aa5 14:00 BP 130 / 84; Pulse 115; Resp 24 S; Pulse Ox 99% on BiPAP; aa5 15:10 BP 124 / 82; Pulse 110; Resp 20 S; Pulse Ox 99% on BiPAP; aa5 16:30 BP 130 / 82; Pulse 104; Resp 18 S; Temp 98.0(TE); Pulse Ox 99% on BiPAP; aa5 17:20 BP 133 / 82; Pulse 100; Resp 22 S; Temp 98.0(TE); Pulse Ox 98% on BiPAP; Pain 0/10; aa5 12:14 Body Mass Index 38.25 (107.50 kg, 167.64 cm) hb ED Course: 12:11 Patient arrived in ED. mr 12:12 Shelton Royal MD is Attending Physician. kdr 12:14 Triage completed. hb 12:14 Arm band placed on. hb 12:18 Andre Streeter PA is PHCP. jr8 12:20 Patient has correct armband on for positive identification. aa5 12:36 EKG done, by dev technical mgr. reviewed by Andre REMY. at1 12:39 Initial lab(s) drawn, by me, sent to lab. Inserted saline lock: 20 gauge in right aa5 forearm, using aseptic technique. Blood collected. 12:39 First set of blood cultures drawn by me. aa5 12:43 Leonora Huffman, NUVIA is Primary Nurse. aa5 12:50 Second set of blood cultures drawn by me. aa5 12:55 Chest Single View XRAY In Process Unspecified. EDMS 14:00 CT Chest For PE Angio In Process Unspecified. EDMS 14:22 Marck Alvarez MD is Hospitalizing Provider. jr8 17:30 No provider procedures requiring assistance completed. Patient admitted, IV remains in aa5 place. Administered Medications: 12:40 Drug: Albuterol - atroVENT (3:1) (2.5 mg - 0.5 mg) 3 ml Route: Nebulizer; aa5 13:00 Follow up: Response: No adverse reaction aa5 12:40 Drug: SOLU-Medrol 125 mg Route: IVP; Site: right forearm; aa5 12:50 Follow up: Response: No adverse reaction aa5 12:54 Drug: LevaQUIN 500 mg Volume: 100 ml; Route: IVPB; Infused Over: 60 mins; Site: right jl7 forearm; 13:54 Follow up: Response: No adverse reaction; IV Status: Completed infusion aa5 14:45 Drug: NS 0.9% 1000 ml Route: IV; Rate: 1000 ml; Site: right forearm; aa5 16:30 Follow up: IV Intake: 1000ml aa5 14:45 Drug: NS 0.9% 1000 ml Route: IV; Rate: 1000 ml; Site: right forearm; aa5 15:30 Follow up: IV Status: Completed infusion; IV Intake: 1000ml aa5 Point of Care Testing: Blood Glucose: 12:32 Blood Glucose: 224 mg/dL; jl7 Ranges: Intake: 15:30 IV: 1000ml; Total: 1000ml. aa5 16:30 IV: 1000ml; Total: 2000ml. aa5 Outcome: 14:23 Decision to Hospitalize by Provider. jr8 17:30 Admitted to Tele accompanied by tech, via stretcher, with oxygen, with chart, Report aa5 called to NUVIA Novak 17:30 Condition: stable 17:30 Instructed on the need for admit, Demonstrated understanding of instructions. 17:54 Patient left the ED. aa5 Signatures: Dispatcher [employer] EDMS Shelton Royal MD MD kdr Rivera, Mary mr Cheli Haines RN RN iw Calderon, Audri, RN RN aa5 Andre Streeter, JONEL PA jr8 Radha Blum, project financial analyst EKG Tat1 Alejandro, Arabella, RN RN hb Twin Lynch RN RN jl7 Corrections: (The following items were deleted from the chart) 19:50 15:10 Reassessment: Pt assisted with bedside commode, pt tolerated well. Urine specimen aa5 collected. . aa5 19:55 17:54 Patient left the ED. iw aa5
[2019-05-14] MEDS ORDERED: NA CHLORIDE 0.9% 2,000 ML ONE (14:42)
--- NOTE | 2019-05-14 14:53 | EKG ---
Test Date: 2019-05-14 Test Time: 12:23:29 Correctional Treatment Specialist: MARYANA MEASUREMENT RESULTS: Intervals: Rate: 121 CT: 156 QRSD: 80 QT: 318 QTc: 451 [place]: P: 80 CT: 156 QRS: 71 T: 79 INTERPRETIVE STATEMENTS: Sinus tachycardia Right atrial enlargement Anterior infarct, age undetermined Abnormal ECG Compared to ECG 12/29/2018 15:07:40 No significant changes Electronically Signed On 05-14-19 14:52:16 CDT by Geoff Whaley
[2019-05-14] MEDS ORDERED: ONDANSETRON 4 MG/2 ML VIAL IV PRN (17:15)
[2019-05-14 17:53] VITALS: BMI 37.3
[2019-05-14] MEDS: METHYLPREDNISOLONE 40 MG INJ IV SCH ×2 (18:07→23:37)
[2019-05-14] MEDS: IPRATROPIUM BROM 0.5MG/2.5ML NEB PRN (21:15)
[2019-05-14] MEDS: ALBUTEROL 2.5 MG/3 ML NEB SOL NEB PRN (21:15)
[2019-05-15] MEDS: METHYLPREDNISOLONE 40 MG INJ IV SCH ×2 (05:18→11:42)
[2019-05-15 06:22] LABS: Absolute Lymphocytes (CBC) 0.7 K/uL (0.7-4.9); Basophils % 0.4 % (0-1.3); Hematocrit 48.4 % (36.0-45.0); Lymphocytes % 6.3 % (15.3-44.8); MPV 9.3 fL (7.6-11.3); RBC Red Blood Cell Count 5.49 M/uL (3.86-4.86)
[2019-05-15 06:34] LABS: Potassium 4.6 mmol/L (3.5-5.1)
[2019-05-15 07:33] LABS: Blood Morphology Comment NOTED (NOT SEEN); Hypochromasia 1+; Platelet Estimate ADEQ; Stomatocytes 1+
--- NOTE | 2019-05-15 07:45 | EKG ---
Test Date: 2019-05-14 Test Time: 14:45:31 Repairer Kiln Car: ENEDINA MEASUREMENT RESULTS: Intervals: Rate: 107 DC: 164 QRSD: 90 QT: 348 QTc: 464 [place]: P: 66 DC: 164 QRS: 61 T: 76 INTERPRETIVE STATEMENTS: Sinus tachycardia Anterior infarct, age undetermined Abnormal ECG Compared to ECG 05/14/2019 12:23:29 Atrial abnormality no longer present Myocardial infarct finding still present Electronically Signed On 05-15-19 07:45:10 CDT by Tobin Briggs
[2019-05-15] MEDS: IPRATROPIUM BROM 0.5MG/2.5ML NEB PRN (08:35)
[2019-05-15] MEDS: ALBUTEROL 2.5 MG/3 ML NEB SOL NEB PRN ×2 (08:35→14:30)
[2019-05-15] MEDS ORDERED: GLUCAGON 1 MG/VIAL IM PRN (12:40)
[2019-05-15] MEDS ORDERED: D50W 25 GM/50 ML SYRINGE IV PRN (12:40)
[2019-05-15] MEDS: INSULIN -REGULAR HUMAN 50 UNIT/0.5 ML ML SQ SCH ×3 (12:52→20:47)
[2019-05-15] MEDS ORDERED: Levofloxacin500mg IV 500 MG/100 ML BAG IV SCH (13:00)
--- NOTE | 2019-05-15 13:48 | P.CNS ---
Date of Consult: 05/15/19 Chief Complaint: COPD exacerbation History of Present Illness: Patient is 59 years of age admitted with worsening shortness of breath productive cough became sick since Saturday patient was taking a bronchodilator as scheduled to have a sleep study as an outpatient doing somewhat better Allergies No Known Allergies Allergy (Unverified 12/29/18 17:50) Home Medications: Budesonide/Formoterol Fumarate [Symbicort 160-4.5 Mcg Inhaler] 1 puff IH BID Fluticasone/Salmeterol [Fluticasone-Salmeterol 113-14] 1 puff IH BID 12/30/18 Spironolact/Hydrochlorothiazid [Aldactazide 25-25 Tablet] 1 each PO DAILY Albuterol Sulfate [Proair Hfa] 8.5 gm IH QID #1 hfa.aer.ad 01/01/19 Amlodipine [Norvasc] 5 mg PO DAILY #90 tab 01/01/19 Budesonide/Formoterol Fumarate [Symbicort 160-4.5 Mcg Inhaler] 2 puff IH BID #1 hfa.aer.ad 01/01/19 levoFLOXacin [Levaquin] 500 mg PO DAILY #5 tab 01/01/19 Pantoprazole [Protonix Tab] 40 mg PO DAILY 05/14/19 - Past Medical/Surgical History Diabetic: No -: COPD -: HTN -: Asthma - Social History Smoking Status: Current every day smoker Alcohol use: No CD- Drugs: No Caffeine use: No Place of Residence: Home Review of Systems 10-point ROS is otherwise unremarkable General: Weakness Respiratory: Cough, Shortness of Breath Physical Examination Temp Pulse Resp BP Pulse Ox 97.7 F 114 H 20 126/76 90 L 05/15/19 12:00 05/15/19 12:00 05/15/19 12:00 05/15/19 12:00 05/15/19 12:00 General: Alert, Oriented x3 Respiratory: Expiratory wheezes Cardiovascular: Regular rate/rhythm, Normal S1 S2, Edema Gastrointestinal: Normal bowel sounds, Soft and benign Musculoskeletal: No clubbing Integumentary: No rashes Neurological: Normal speech, Cranial nerves 3-12 intact - Problems (1) COPD exacerbation Current Visit: No Status: Acute Plan: Patient is 59 years of age admitted with COPD exacerbation labs and chemistries reviewed pro calcitonin level is negative PE shows COPD changes questionable pneumonia labs reviewed patient is hypoxic hypercarbic scheduled for an outpatient sleep study continue with bronchodilators supervisor records change to p.o. prednisone and levofloxacin very minimal patchy changes in the right lung base white count is mildly elevated continue with steroids
[2019-05-15] MEDS: IPRATROPIUM BROM 0.5MG/2.5ML NEB SCH ×2 (14:30→20:30)
[2019-05-15] MEDS: ARFORMOTEROL TARTRATE 15 MCG/2 ML VIAL.NEB NEB SCH (20:30)
[2019-05-15] MEDS: predniSONE 20 MG TAB PO SCH (20:47)
--- NOTE | 2019-05-15 22:30 | HP ---
Date of Admission: 05/14/2019 Chief Complaint: COPD exacerbation, possible pneumonia. History Of Present Illness: A 59-year-old female who is known to have COPD-related to smoking, who h as a nebulizer at home as well as rescue inhalers, was brought to the emergency room because of the b reathing issue as well as left-sided chest pain. The patient was examined. She had a CAT scan of th e chest. The patient was diagnosed to have hypoxia secondary to COPD exacerbation and possible pneum onitis. The patient is admitted. Family History: Noncontributory. Personal History: She smokes intermittently currently. Review of Systems: The patient denied any fever, chills, rigors. Physical Examination: General: Revealed 59-year-old female with mild audible wheezing. Vital Signs: Blood pressure 153/88. HEENT: Congested throat. Neck: Supple, JVD negative. Chest: Scattered wheezes bilaterally. Heart: Regular. Abdomen: Soft. Extremities: No edema. Laboratory Data: CT chest, evidence of pneumonitis on the left side, O2 saturations suggestive of h ypoxia. CBC done in the emergency room, white count 10.7, hemoglobin 17.7. Chem profile done in the emergency room, BUN 17, creatinine 1.05. Procalcitonin negative. Random blood sugar of 224. Assessment: 1.Chronic obstructive pulmonary disease exacerbation. 2.Possible pneumonia, left side. 3.Chest pain, probably related to pneumonitis. 4.Chronic obstructive pulmonary disease secondary to smoking. Plan: The patient is started on breathing treatment, Levaquin, Solu-Medrol. The patient is doing be tter today. She also has pulmonary consultation. She sees Dr. Clarke regularly in the office. Pe nding his suggestions, she will be continued on. Her random blood sugar was high, it is not clear wh ether she is going to become a diabetic. She is on Solu-Medrol. She will have a hemoglobin A1c and fasting blood sugar done. ELDA/PAULY Voice ID: [id number]
[2019-05-15 23:50] LABS: Urine Appearance CLEAR; Urine Bilirubin NEGATIVE (NEG); Urine Blood NEGATIVE (NEG); Urine Color YELLOW; Urine Glucose NEGATIVE (NEG); Urine Protein NEGATIVE (NEG); Urine Specific Gravity 1.015 (1.005-1.030)
[2019-05-16 00:14] LABS: Urine Microscopic Reflex NO UMIC
[2019-05-16] MEDS: IPRATROPIUM BROM 0.5MG/2.5ML NEB SCH ×4 (01:40→20:00)
[2019-05-16] MEDS ORDERED: NA CHLORIDE 0.9% 0 ML ONE (05:21)
--- NOTE | 2019-05-16 07:03 | EKG ---
Test Date: 2019-05-15 Test Time: 17:20:49 Examination Scorer: ENEDINA MEASUREMENT RESULTS: Intervals: Rate: 101 NV: 162 QRSD: 72 QT: 334 QTc: 433 [place]: P: 71 NV: 162 QRS: 76 T: 76 INTERPRETIVE STATEMENTS: Sinus tachycardia Anterior infarct, age undetermined Abnormal ECG Compared to ECG 05/14/2019 14:45:31 No significant changes Electronically Signed On 05-16-19 07:02:36 CDT by Tobin Briggs
[2019-05-16] MEDS: INSULIN -REGULAR HUMAN 50 UNIT/0.5 ML ML SQ SCH ×4 (07:30→22:03)
[2019-05-16] MEDS: ARFORMOTEROL TARTRATE 15 MCG/2 ML VIAL.NEB NEB SCH ×2 (08:10→20:00)
[2019-05-16] MEDS: levoFLOXacin 500 MG TAB PO SCH (08:34)
[2019-05-16] MEDS: predniSONE 20 MG TAB PO SCH ×2 (08:34→21:52)
--- NOTE | 2019-05-16 10:27 | P.PN ---
Subjective Date of Service: 05/16/19 Chief Complaint: COPD exacerbation Subjective: Improving (Patient's condition is stable still requiring oxygen no new change) Review of Systems Respiratory: Shortness of Breath Physical Examination - Vital Signs Temperature: 97.4 F Blood Pressure: 157/86 Pulse: 86 Respirations: 20 Pulse Ox (%): 94 - Physical Exam General: Alert, In no apparent distress, Oriented x3 Respiratory: Clear to auscultation bilaterally, Diminished Cardiovascular: Normal S1 S2 Assessment & Plan - Problems (Diagnosis) (1) COPD exacerbation Current Visit: No Status: Acute Plan: Patient admitted with COPD exacerbation continue with present therapy recheck arterial blood gases continue with bronchodilators steroids Plan to discharge in: 48 Hours
[2019-05-16 11:03] LABS: MPV 9.2 fL (7.6-11.3); RBC Red Blood Cell Count 5.37 M/uL (3.86-4.86)
[2019-05-16 11:17] LABS: Arterial Blood Carboxyhemoglob 1.6 % (0-1.5); Blood Gas Oxyhemoglobin 77.1 % (94-97); Blood O2 Saturation 78.8 % (92-98.5)
[2019-05-16] MEDS ORDERED: PANTOPRAZOLE 40MG TABLET PO ONE (11:27)
[2019-05-16] MEDS: ENOXAPARIN 40 MG/0.4 ML SQ SCH (16:38)
--- NOTE | 2019-05-16 16:48 | PN ---
Date of Progress Note: 05/16/2019 Subjective: Patient was seen and examined. Chart reviewed and case discussed with RN and Dr. Josie munoz. Dr. Alvarez is out of town. Hospice services covering while he is out over the weekend. The ricardo ent continues to have significant shortness of breath, was able to be weaned off BiPAP this morning, still having some wheezing. Medications: List reviewed. Physical Examination: Vital Signs: Temperature 97.2, heart rate 108, blood pressure 138/78, respirations 20, O2 92% on 4 L via nasal cannula. General: Awake, alert, oriented x3, in some mild respiratory distress. Elderly female. CV: S1, S2. Regular rate and rhythm. Peripheral pulses present. Respiratory: Diminished breath sounds. Wheezing heard. No use of accessory muscles. No stridor. Gastrointestinal: Abdomen is soft, nontender, nondistended. Positive bowel sounds. No guarding or rigidity. Extremities: No clubbing, cyanosis, or edema. Neurologic: Cranial nerves 2 through 12 intact grossly. No focal neurological deficit. Speech is n ormal. Laboratory Data: Glucose is ranging from 138-144. Hemoglobin A1c is pending. WBC is 18.1, H and H 14.7 and 47, platelets 169. Differential is pending. Blood cultures, no growth to date. Influenza screen is negative. Assessment And Plan: A 59-year-old female with: 1.Acute chronic obstructive pulmonary disease exacerbation. We will continue with nebulizer treatme nts and steroids, improving now off BiPAP, currently on 4 L via nasal cannula. We will continue to w galilea as tolerated. Appreciate Dr. Clarke's input. 2.Pneumonia, left side. Continue on IV antibiotics. Repeat chest x-ray as clinically indicated. Brooklyn fletcher is still having some cough. We will follow up on blood cultures, currently no growth to date. We will order sputum cultures. 3.Chest pain, likely related to pneumonitis. 4.Nicotine dependence with cigarette smoking, counseled. 5.Acute respiratory failure with hypercapnia and hypoxia secondary to chronic obstructive pulmonary disease. Patient now off BiPAP currently on 4 L via nasal cannula. 6.Obesity, BMI 37.4. 7.Leukocytosis, likely related to steroids. We will continue to monitor. Patient does have pneumon ia. No signs of sepsis at this time. 8.Diabetes mellitus type 2, non-insulin requiring. We will continue with blood glucose levels and m onitor Accu-Cheks. Hemoglobin A1c is pending. 9.Deep vein thrombosis prophylaxis. We will add Lovenox. Plan: Likely discharge within the next 48-72 hours depending on clinical response. SONDRA Voice ID: [id number] Report ID: [id number]
[2019-05-16] MEDS ORDERED: HOME MED 1 EA UNK (Budesonide/Formoterol Fumarate [Symbicort 160-4.5 Mcg Inhaler] 2 PUFF) IH SCH (21:00)
[2019-05-16] MEDS ORDERED: HOME MED 1 EA UNK (Fluticasone/Salmeterol [Fluticasone-Salmeterol 113-14] 1 PUFF) IH SCH (21:00)
[2019-05-17] MEDS: IPRATROPIUM BROM 0.5MG/2.5ML NEB SCH ×4 (02:00→19:35)
[2019-05-17] MEDS: PANTOPRAZOLE 40MG TABLET PO SCH (06:21)
[2019-05-17 06:34] LABS: Absolute Lymphocytes (CBC) 0.8 K/uL (0.7-4.9); Basophils % 0.3 % (0-1.3); Hematocrit 46.5 % (36.0-45.0); Lymphocytes % 6.4 % (15.3-44.8); RBC Red Blood Cell Count 5.29 M/uL (3.86-4.86)
[2019-05-17 06:38] LABS: BUN Blood Urea Nitrogen 21 mg/dL (7-18); Bicarbonate 38 mmol/L (21-32); Glucose Level 134 mg/dL (74-106); Potassium 4.6 mmol/L (3.5-5.1); Sodium Level 141 mmol/L (136-145)
[2019-05-17] MEDS: INSULIN -REGULAR HUMAN 50 UNIT/0.5 ML ML SQ SCH ×4 (07:30→21:21)
[2019-05-17] MEDS ORDERED: ALBUTEROL 2.5 MG/3 ML NEB SOL ONE (07:30)
[2019-05-17] MEDS ORDERED: ARFORMOTEROL TARTRATE 15 MCG/2 ML VIAL.NEB ONE (07:31)
[2019-05-17] MEDS ORDERED: IPRATROPIUM BROM 0.5MG/2.5ML ONE (07:31)
[2019-05-17] MEDS: ARFORMOTEROL TARTRATE 15 MCG/2 ML VIAL.NEB NEB SCH ×2 (07:55→19:35)
[2019-05-17] MEDS ORDERED: SPIRONOLACT PO SCH (09:00)
[2019-05-17] MEDS ORDERED: HYDROCHLOROTHIAZID PO SCH (09:00)
[2019-05-17] MEDS: levoFLOXacin 500 MG TAB PO SCH (09:16)
[2019-05-17] MEDS: AMLODIPINE 5 MG TAB PO SCH (09:16)
[2019-05-17] MEDS: predniSONE 20 MG TAB PO SCH ×2 (09:17→21:21)
[2019-05-17] MEDS: SPIRONOLACTONE 25 MG TABLET PO SCH (09:17)
[2019-05-17] MEDS: hydroCHLOROthiazide 25 MG TAB PO SCH (09:17)
[2019-05-17] MEDS: ALBUTEROL 2.5 MG/3 ML NEB SOL NEB PRN (14:20)
--- NOTE | 2019-05-17 14:35 | PN ---
Patient seen and examined. Chart reviewed and case discussed with RN. Patient still having significant shortness of breath, requiring BiPAP at night. Medications: List reviewed. Physical Examination: Vital Signs: Temperature 97, heart rate 76, blood pressure 138/79, respirations 20, O2 at 93% on 4 L via nasal cannula. General: Awake, alert, oriented x3, obese female in some mild respiratory distress. CV: S1, S2. Regular rate and rhythm. Respiratory: Diminished breath sounds, wheezing heard throughout. No use of accessory muscles. Gastrointestinal: Abdomen is soft, nontender, nondistended. Positive bowel sounds. Extremities: No clubbing, cyanosis, or edema. Neurologic: Nonfocal. Laboratory Data: Sodium 141, potassium 4.6, chloride 102, CO2 of 38, BUN 21, creatinine 0.75, glucose 135, calcium 8.5. WBC 12.3, H and H 14.7 and 46.5, platelets 153, neutrophils 89%. Blood cultures no growth to date. Assessment And Plan: A 59-year-old female with: 1. Acute chronic obstructive pulmonary disease exacerbation. Continue with nebulizer treatments. Try to wean steroids as tolerated. The patient is still having significant respiratory distress, uses BiPAP at night, currently on 4 L. 2. Acute respiratory failure with hypercapnia and hypoxia secondary to COPD, using BiPAP at night, currently on 4 L. We will try to wean off as tolerated. 3. Pneumonia on the left side. Continue antibiotics and switch to p.o. Continues to have some cough, however, improving. Blood cultures show no growth to date. 4. Chest pain, likely related to pneumonitis, resolved. 5. Leukocytosis, may be steroid-induced and from pneumonia, improving. No signs of sepsis. 6. Obesity, BMI 37.4. 7. Nicotine dependence with cigarette smoking, counseled. 8. Diabetes mellitus type 2, non-insulin requiring. We will continue with sliding scale insulin. Monitor blood glucose levels. 9. Deep vein thrombosis prophylaxis with Lovenox. Plan: Followup on hemoglobin A1c. Adjust sliding scale insulin as needed. Wean off home O2. Likely discharge in next 24 to 48 hours depending on clinical response. Dr. Alvarez to resume care tomorrow morning. I will contact him regarding the patient this evening. ADDENDUM Spoke to Dr. Alvarez. He will resume care in am. SA/MODL Voice ID: [id number] Report ID: [id number] LAURA
[2019-05-17] MEDS: ENOXAPARIN 40 MG/0.4 ML SQ SCH (16:55)
[2019-05-17] MEDS ORDERED: ACETAMINOPHEN 500 MG TAB PO PRN (21:35)
[2019-05-18] MEDS: IPRATROPIUM BROM 0.5MG/2.5ML NEB SCH ×4 (01:45→19:25)
[2019-05-18 05:35] LABS: Arterial Blood Carboxyhemoglob 1.3 % (0-1.5); Blood Gas Oxyhemoglobin 90.1 % (94-97); Blood O2 Saturation 91.9 % (92-98.5)
[2019-05-18 05:36] LABS: Absolute Lymphocytes (CBC) 0.9 K/uL (0.7-4.9); Basophils % 0.4 % (0-1.3); Hematocrit 49.7 % (36.0-45.0); Lymphocytes % 8.7 % (15.3-44.8); MPV 8.8 fL (7.6-11.3); RBC Red Blood Cell Count 5.61 M/uL (3.86-4.86)
[2019-05-18] MEDS: PANTOPRAZOLE 40MG TABLET PO SCH (06:55)
[2019-05-18] MEDS: INSULIN -REGULAR HUMAN 50 UNIT/0.5 ML ML SQ SCH ×4 (07:30→21:00)
[2019-05-18] MEDS: ARFORMOTEROL TARTRATE 15 MCG/2 ML VIAL.NEB NEB SCH ×2 (08:00→19:25)
--- NOTE | 2019-05-18 08:15 | RAD REPORT ---
EXAM DESCRIPTION: RAD - Chest Single View - 05/18/2019 5:57 am CLINICAL HISTORY: COPD Chest pain. COMPARISON: Chest Single View dated 05/14/2019; Chest Single View dated 12/29/2018; Chest Pa And Lat (2 Views) dated 12/24/2016; Chest For Pe Angio dated 05/14/2019 FINDINGS: Portable technique limits examination quality. Linear opacities in the right lung base noted probably representing mild atelectasis/infiltrate. The heart is upper limit of normal in size. No displaced fractures.
[2019-05-18] MEDS: SPIRONOLACTONE 25 MG TABLET PO SCH (09:15)
[2019-05-18] MEDS: levoFLOXacin 500 MG TAB PO SCH (09:15)
[2019-05-18] MEDS: AMLODIPINE 5 MG TAB PO SCH (09:15)
[2019-05-18] MEDS: predniSONE 20 MG TAB PO SCH ×2 (09:16→21:00)
[2019-05-18] MEDS: hydroCHLOROthiazide 25 MG TAB PO SCH (09:16)
[2019-05-18] MEDS: ENOXAPARIN 40 MG/0.4 ML SQ SCH (17:17)
[2019-05-19] MEDS: IPRATROPIUM BROM 0.5MG/2.5ML NEB SCH ×4 (02:15→19:30)
--- NOTE | 2019-05-19 03:13 | PN ---
The patient still complains of wheezing. Her chest x-ray shows small infiltrate. The patient genera lly doing okay. I talked to her regarding the discharge plans. BRITTANY Voice ID: [id number] Report ID: [id number]
[2019-05-19] MEDS: PANTOPRAZOLE 40MG TABLET PO SCH (05:10)
[2019-05-19 05:54] LABS: Absolute Lymphocytes (CBC) 0.7 K/uL (0.7-4.9); Basophils % 0.4 % (0-1.3); Hematocrit 48.8 % (36.0-45.0); Lymphocytes % 6.8 % (15.3-44.8); MPV 9.5 fL (7.6-11.3); RBC Red Blood Cell Count 5.57 M/uL (3.86-4.86)
[2019-05-19 06:02] LABS: Potassium 5.1 mmol/L (3.5-5.1)
[2019-05-19 08:16] LABS: Blood Morphology Comment NOT SEEN (NOT SEEN); Platelet Estimate ADEQ
[2019-05-19] MEDS: ARFORMOTEROL TARTRATE 15 MCG/2 ML VIAL.NEB NEB SCH ×2 (08:21→19:30)
[2019-05-19] MEDS: levoFLOXacin 500 MG TAB PO SCH (09:26)
[2019-05-19] MEDS: INSULIN -REGULAR HUMAN 50 UNIT/0.5 ML ML SQ SCH ×4 (09:26→21:00)
[2019-05-19] MEDS: SPIRONOLACTONE 25 MG TABLET PO SCH (09:26)
[2019-05-19] MEDS: AMLODIPINE 5 MG TAB PO SCH (09:27)
[2019-05-19] MEDS: predniSONE 20 MG TAB PO SCH (09:27)
[2019-05-19] MEDS: hydroCHLOROthiazide 25 MG TAB PO SCH (09:27)
--- NOTE | 2019-05-19 11:56 | P.PN ---
Subjective Date of Service: 05/19/19 Chief Complaint: COPD exacerbation Subjective: Improving (Patient is steadily improving however very hypoxic follow for ice for home oxygen) Review of Systems Unremarkable Physical Examination - Vital Signs Temperature: 97.5 F Blood Pressure: 156/96 Pulse: 102 Respirations: 18 Pulse Ox (%): 100 - Physical Exam General: Alert, Oriented x3 Respiratory: Clear to auscultation bilaterally Assessment & Plan - Problems (Diagnosis) (1) COPD exacerbation Current Visit: No Status: Acute Plan: Patient admitted with COPD exacerbation of contacted [facility] patient regarding sending her for home oxygen room-air sat is 87% blood gases shows hypoxemia and hypercarbia Dc prednisone white count is now normal she has had 5 days of levofloxacin cultures are all negative reduce dose of prednisone
[2019-05-19] MEDS: ENOXAPARIN 40 MG/0.4 ML SQ SCH (17:34)
[2019-05-19] MEDS ORDERED: HYDRALAZINE HCL 20 MG/ML VIAL IV PRN (18:18)
[2019-05-19] MEDS: predniSONE 10 MG TAB PO SCH (21:06)
--- NOTE | 2019-05-20 00:31 | PN ---
Patient is doing better; however, she still has episodes of hypoxia without the O2. I spoke to Dr. Sera garrett regarding the need for home oxygen. However, because of financial situation, it has not been possible. binding bench worker still working on the case. ELDA/PAULY Voice ID: [id number] Report ID: [id number]
[2019-05-20] MEDS: IPRATROPIUM BROM 0.5MG/2.5ML NEB SCH ×4 (01:15→20:15)
[2019-05-20] MEDS: PANTOPRAZOLE 40MG TABLET PO SCH (06:10)
[2019-05-20] MEDS: ARFORMOTEROL TARTRATE 15 MCG/2 ML VIAL.NEB NEB SCH ×2 (06:18→20:15)
[2019-05-20] MEDS: INSULIN -REGULAR HUMAN 50 UNIT/0.5 ML ML SQ SCH ×4 (07:30→22:20)
[2019-05-20] MEDS: AMLODIPINE 5 MG TAB PO SCH (10:30)
[2019-05-20] MEDS: predniSONE 10 MG TAB PO SCH ×2 (10:31→21:24)
[2019-05-20] MEDS: hydroCHLOROthiazide 25 MG TAB PO SCH (10:31)
[2019-05-20] MEDS: SPIRONOLACTONE 25 MG TABLET PO SCH (10:31)
[2019-05-20] MEDS: ENOXAPARIN 40 MG/0.4 ML SQ SCH (16:25)
--- NOTE | 2019-05-20 21:52 | PN ---
Patient is doing better. She is afebrile. However, the issue still seems to be home oxygen arrangem ent. I spoke to the staff nurse again. They are not sure what else can be done to this patient to h ave home oxygen. ELDA/PAULY Voice ID: [id number] Report ID: [id number]
[2019-05-21] MEDS: IPRATROPIUM BROM 0.5MG/2.5ML NEB SCH ×3 (01:45→13:35)
[2019-05-21 04:53] VITALS: O2SAT 92
[2019-05-21] MEDS: PANTOPRAZOLE 40MG TABLET PO SCH (05:43)
[2019-05-21] MEDS: INSULIN -REGULAR HUMAN 50 UNIT/0.5 ML ML SQ SCH ×2 (07:30→11:30)
[2019-05-21 09:06] VITALS: BP 134/86; TEMP 97.6
[2019-05-21] MEDS: AMLODIPINE 5 MG TAB PO SCH (09:29)
[2019-05-21] MEDS: SPIRONOLACTONE 25 MG TABLET PO SCH (09:29)
[2019-05-21] MEDS: hydroCHLOROthiazide 25 MG TAB PO SCH (09:29)
[2019-05-21] MEDS: predniSONE 10 MG TAB PO SCH (09:30)
[2019-05-21 12:28] LABS: Blood Gas Oxyhemoglobin 86.2 % (94-97); Blood O2 Saturation 87.8 % (92-98.5)
--- NOTE | 2019-05-21 12:28 | P.PN ---
Subjective Date of Service: 05/21/19 Chief Complaint: COPD exacerbation Subjective: Improving (Doign well) Review of Systems Unremarkable Physical Examination - Vital Signs Temperature: 97.6 F Blood Pressure: 134/86 Pulse: 102 Respirations: 20 Pulse Ox (%): 97 - Physical Exam General: Alert, In no apparent distress, Oriented x3 Respiratory: Clear to auscultation bilaterally, Diminished Assessment & Plan - Problems (Diagnosis) (1) COPD exacerbation Current Visit: No Status: Acute Plan: Doing well. RA ABG Po2 55. D/C home./ Resume home meds. F/u with me 2 wks
[2019-05-21] MEDS: ARFORMOTEROL TARTRATE 15 MCG/2 ML VIAL.NEB NEB SCH (13:35)
== END 2019-05-21 15:16 | disposition home or self-care (01) | DRG 190 ==
LOC: ER 12:08 → ERHOLD 14:57 → 2ND 17:08
PROVIDERS: ADMIT Internal Medicine; ATTEND Internal Medicine
DX: J44.0 Chronic obstructive pulmonary disease with (acute) lower respiratory infection (principal); J18.9 Pneumonia, unspecified organism; J96.02 Acute respiratory failure with hypercapnia; J96.01 Acute respiratory failure with hypoxia; J44.1 Chronic obstructive pulmonary disease with (acute) exacerbation; F17.210 Nicotine dependence, cigarettes, uncomplicated; E66.9 Obesity, unspecified; Z68.37 Body mass index [BMI] 37.0-37.9, adult; D72.829 Elevated white blood cell count, unspecified; E11.9 Type 2 diabetes mellitus without complications
CPT/HCPCS: 36415; 71045; 71275; 80048; 80076; 81003; 82550; 82553; 82805; 82947; 83036; 83605; 83880; 84145; 84484; 85025; 85027; 85379; 85610; 85730; 87040; 87804; 93005; 94640; 94660; 94760; 96361; 96365; 96375; 97116; 97161; 97530; 99285; J0360; J1650; J2920; J2930; J7030; J7512; J7605; Q9967

== ENCOUNTER 2019-09-14 17:04 | Inpatient (IN) | payer SELFPAY ==
[2019-09-14] MEDS ORDERED: METHYLPREDNISOLONE 125 MG INJ ONE (17:40)
[2019-09-14] MEDS ORDERED: LEVALBUTEROL 1.25 MG/3 ML NEB ONE ×2 (17:41→19:13)
[2019-09-14] MEDS ORDERED: FUROSEMIDE 40 MG/4 ML VIAL ONE (17:41)
[2019-09-14] MEDS ORDERED: CEFTRIAXONE/SWI 1gm 1 GM/10 ML SYR ONE (17:41)
[2019-09-14] MEDS ORDERED: IPRATROPIUM BROM 0.5MG/2.5ML ONE (17:41)
[2019-09-14] MEDS ORDERED: NITROGLYCERIN 1 GM PKT TD ONE (17:41)
[2019-09-14 17:47] LABS: Absolute Lymphocytes (CBC) 1.4 K/uL (0.7-4.9); Basophils % 0.5 % (0-1.3); Hematocrit 49.2 % (36.0-45.0); Lymphocytes % 15.2 % (15.3-44.8); MPV 9.3 fL (7.6-11.3); RBC Red Blood Cell Count 5.69 M/uL (3.86-4.86)
[2019-09-14 18:02] LABS: ALT/SGPT 43 U/L (12-78); AST/SGOT 32 U/L (15-37); Albumin 3.9 g/dL (3.4-5.0); Alkaline Phosphatase 146 U/L (45-117); BUN Blood Urea Nitrogen 12 mg/dL (7-18); Bicarbonate 33 mmol/L (21-32); Bilirubin Direct 0.2 mg/dL (0-0.2); Bilirubin Total 0.6 mg/dL (0.2-1.0); Glucose Level 112 mg/dL (74-106); Magnesium 2.1 mg/dL (1.8-2.4); NT PRO-BNP 46 pg/mL (<125); Potassium 4.1 mmol/L (3.5-5.1); Protein, Total 8.3 g/dL (6.4-8.2); Sodium Level 140 mmol/L (136-145); Troponin (Emerg Dept Use Only) < 0.02 ng/mL (0.0-0.045)
--- NOTE | 2019-09-14 18:16 | ER ---
Nurse's Notes [facility] Name: Kathy Montalvo Age: 59 yrs Sex: Female : 1960 Arrival Date: 09/14/2019 Time: 17:08 Bed 2 Private MD: Marck Alvarez R Diagnosis: Chronic obstructive pulmonary disease with (acute) exacerbation;Edema, unspecified;Essential (primary) hypertension;Hypoxemia Presentation: 09/13 17:18 Chief complaint: Patient states: SOB at rest since last night. History of COPD. Reports ca1 cough and congestion x 3 days. Denies fever. Coronavirus screen: The patient has NOT traveled to [place] in the past 14 days. The patient has NOT had contact with known and/or suspected case of Coronavirus. Ebola Screen: Patient negative for fever greater than or equal to 101.5 degrees Fahrenheit, and additional compatible Ebola Virus Disease symptoms Patient denies exposure to infectious person. Patient denies travel to an Ebola-affected area in the 21 days before illness onset. No symptoms or risks identified at this time. Initial Sepsis Screen: Does the patient meet any 2 criteria? HR > 90 bpm. Does the patient have a suspected source of infection? Yes: Productive cough/pneumonia If YES to both, name of provider notified: Jett Camacho MD Risk Assessment: Do you want to hurt yourself or someone else? Patient reports no desire to harm self or others. 17:18 Method Of Arrival: Wheelchair ca1 17:18 Acuity: ABDIRIZAK 1 ca1 17:18 Onset of symptoms was September 14, 2019. ca1 Historical: - Allergies: 17:26 No Known Allergies; ca1 - Home Meds: 17:26 Albuterol Inhl [Active]; fluticasone inhalation [Active]; ProAir HFA inhalation ca1 [Active]; Symbicort inhalation [Active]; Ventolin Nebulizer [Active]; - PMHx: 17:26 Asthma; Hypertension; COPD; ca1 - Immunization history:: Adult Immunizations up to date, Pneumococcal vaccine is up to date, Flu vaccine is not up to date. - Social history:: Smoking status: Patient/guardian denies using tobacco, Stopped _ months ago 8. - Family history:: not pertinent. Screenin:40 Abuse screen: Denies threats or abuse. Denies injuries from another. Nutritional ph screening: No deficits noted. Tuberculosis screening: No symptoms or risk factors identified. Fall Risk No fall in past 12 months (0 pts). No secondary diagnosis (0 pts). IV access (20 points). Ambulatory Aid- None/Bed Rest/Nurse Assist (0 pts). Gait- Weak (10 pts.). Mental Status- Oriented to own ability (0 pts). Total Mead Fall Scale indicates Low Risk Score (25-44 pts). Fall prevention measures have been instituted. Side Rails Up X 2 Placed close to Nursing Station Frequent Obs/Assesments occuring As available Patient and Family Educated on Fall Prevention Program and strategies. Assessment: 17:30 Reassessment: RT at bedside to place pt on bi-pap. ph 18:41 General: Appears in no apparent distress. uncomfortable, obese, Behavior is calm, ph cooperative, appropriate for age, Denies fever. Pain: Complains of pain in chest. Neuro: Level of Consciousness is awake, alert, obeys commands, Oriented to person, place, time, situation. Cardiovascular: Capillary refill < 3 seconds in bilateral fingers Patient's skin is warm and dry. Rhythm is sinus tachycardia. Cardiovascular: Edema is 2+ to left midcalf, left ankle, left foot, right midcalf, right ankle and right foot. Respiratory: Reports shortness of breath at rest air hunger labored breathing pain with cough pain with respiration Airway is patent Respiratory effort is even, labored, shallow, Respiratory pattern is tachypnea Breath sounds are coarse bilaterally. Derm: Skin is intact, is healthy with good turgor, Skin is pink, warm \T\ dry. Musculoskeletal: Circulation, motion, and sensation intact. Range of motion: intact in all extremities. 19:15 General: Appears in no apparent distress. comfortable, Behavior is calm, cooperative, rr5 appropriate for age, awaiting for room assignment. 19:15 Pain: Denies pain. Neuro: Level of Consciousness is awake, alert, obeys commands, rr5 Oriented to person, place, time, situation. Cardiovascular: Denies chest pain, Capillary refill < 3 seconds Patient's skin is warm and dry. Respiratory: Airway is patent Respiratory effort is even, unlabored, Respiratory pattern is tachypnea patient is on BIPAP. GI: Abdomen is round. : No signs and/or symptoms were reported regarding the genitourinary system. EENT: No signs and/or symptoms were reported regarding the EENT system. Derm: Skin is intact, is healthy with good turgor, Skin is pink, warm \T\ dry. Musculoskeletal: Circulation, motion, and sensation intact. Capillary refill < 3 seconds. 20:10 Reassessment: Patient appears in no apparent distress at this time. Patient is alert, rr5 oriented x 3, equal unlabored respirations, skin warm/dry/pink. Patient states symptoms have improved. 20:44 Reassessment: Patient appears in no apparent distress at this time. Patient is alert, rr5 oriented x 3, equal unlabored respirations, skin warm/dry/pink. for transfer to room 403. GCS 15/15, not in distress. IV cannula intact. Vital Signs: 17:18 BP 184 / 109; Pulse 129; Resp 28; Temp 98.3(TE); Pulse Ox 67% on R/A; Weight 102.06 kg ca1 (R); Height 5 ft. 6 in. (167.64 cm) (R); 17:42 Pulse 125; Pulse Ox 96% on BiPAP; ph 18:42 BP 133 / 93; Pulse 119; Resp 20; Pulse Ox 97% on 60% BiPAP; ph 19:12 BP 128 / 86; Pulse 116; Resp 20; Pulse Ox 96% on 60% BiPAP; ph 19:45 BP 151 / 85; Pulse 112; Resp 22; Temp 97.8; Pulse Ox 99% on 60% BiPAP; rr5 20:12 BP 136 / 81; Pulse 113; Resp 21; Pulse Ox 98% on 60% BiPAP; rr5 20:50 BP 137 / 75; Pulse 110; Resp 22; Pulse Ox 98% on 60% BiPAP; rr5 17:18 Body Mass Index 36.32 (102.06 kg, 167.64 cm) ca1 ED Course: 17:08 Patient arrived in ED. mr 17:09 Marck Alvarez MD is Private Physician. mr 17:16 Jett Camacho MD is Attending Physician. eblkis 17:24 Maya Lewis, NUVIA is Primary Nurse. ph 17:25 Triage completed. ca1 17:26 Arm band placed on right wrist. ca1 17:30 Inserted saline lock: 20 gauge in left antecubital area, using aseptic technique. Blood ss collected. 17:41 Patient has correct armband on for positive identification. Placed in gown. Bed in low ph position. Call light in reach. Side rails up X2. manager monitoring on. Pulse ox on. NIBP on. Warm blanket given. 17:48 XRAY Chest (1 view) In Process Unspecified. EDMS 18:13 Marck Alvarez MD is Hospitalizing Provider. [facility] 18:30 EKG done, by ED staff, reviewed by Jett Camacho MD. 3 19:12 No provider procedures requiring assistance completed. Patient admitted, IV remains in ph place. Administered Medications: 17:45 Drug: Xopenex 3.75 mg Route: Inhalation; ph 18:15 Follow up: Response: No adverse reaction ph 17:48 Drug: SOLU-Medrol 125 mg Route: IVP; Site: left antecubital; ph 18:15 Follow up: Response: No adverse reaction ph 17:50 Drug: Lasix 40 mg Route: IVP; Site: left antecubital; ph 18:58 Follow up: Response: No adverse reaction ph 17:50 Drug: Rocephin 1 grams Route: IV; Rate: per protocol; Site: left antecubital; ph 18:15 Follow up: Response: No adverse reaction; IV Status: Completed infusion ph 17:55 Drug: AtroVENT Aerosol 0.5 mg Route: Inhalation; ph 18:15 Follow up: Response: No adverse reaction ph 19:00 Drug: Pepcid 20 mg {Note: given by Maya Nolan} Route: IVP; Site: left antecubital; rr5 20:00 Follow up: Response: No adverse reaction rr5 19:05 Drug: Decadron - Dexamethasone 10 mg Route: IVP; Site: left antecubital; ph 20:05 Follow up: Response: No adverse reaction rr5 19:28 Dru mg of (Zithromax 500 mg, NS 0.9% 250 ml) Route: IVPB; Infused Over: 1 hrs; rr5 Site: left antecubital; 20:30 Follow up: Response: No adverse reaction; IV Status: Completed infusion; IV Intake: rr5 250ml 19:30 Not Given (Other Intervention Used): Nitro-Bid Ointment 2 % 1 inches Transdermal once rr5 19:30 Drug: Xopenex 1.25 mg Route: Inhalation; rr5 20:30 Follow up: Response: No adverse reaction rr5 19:30 Drug: Nitro-Bid Ointment 2 % 0.5 inches {Note: right.} Route: Transdermal; Site: rr5 anterior chest wall; 20:30 Follow up: Response: No adverse reaction rr5 Intake: 20:30 IV: 250ml; Total: 250ml. rr5 Output: 20:40 Urine: 400ml (Voided); Total: 400ml. rr5 Outcome: 18:15 Decision to Hospitalize by Provider. belksi 20:15 Admitted to Tele accompanied by tech, via stretcher, room 403, with oxygen, with chart, rr5 Report called to mirella 20:15 Condition: stable rr5 20:15 Instructed on the need for admit. 20:55 Patient left the ED. rr5 Signatures: Dispatcher [employer] EDJett Anne MD MD cha Rivera, Erma Junie Chen, RN NUVIA Maya Lewis RN NUVIA [place] [id number] Hasmukh Bronson RN RN rr5 Marcelle Stack RN RN ca1 Corrections: (The following items were deleted from the chart) 18:37 18:00 EKG done, by ED staff, reviewed by Jett Camacho MD [place] [id number]
--- NOTE | 2019-09-14 18:16 | EDPHYS ---
Physician Documentation [facility] Name: Kathy Montalvo Age: 59 yrs Sex: Female : 1960 Arrival Date: 09/14/2019 Time: 17:08 Bed 2 Private MD: Marck Alvarez R ED Physician Jett Camacho HPI: 09/13 17:29 This 59 yrs old Black Female presents to ER via Wheelchair with complaints of Breathing belkis Difficulty. 17:29 The patient has shortness of breath with light activity. Onset: The symptoms/episode belkis began/occurred 2 day(s) ago. Duration: The symptoms are continuous, and are steadily getting worse. The patient's shortness of breath is aggravated by coughing, exertion, light activity, supine position. Associated signs and symptoms: Pertinent positives: non-productive cough, dizziness. Severity of symptoms: At their worst the symptoms were moderate in the emergency department the symptoms are unchanged. The patient has experienced similar episodes in the past, multiple times. Historical: - Allergies: 17:26 No Known Allergies; ca1 - Home Meds: 17:26 Albuterol Inhl [Active]; fluticasone inhalation [Active]; ProAir HFA inhalation ca1 [Active]; Symbicort inhalation [Active]; Ventolin Nebulizer [Active]; - PMHx: 17:26 Asthma; Hypertension; COPD; ca1 - Immunization history:: Adult Immunizations up to date, Pneumococcal vaccine is up to date, Flu vaccine is not up to date. - Social history:: Smoking status: Patient/guardian denies using tobacco, Stopped _ months ago 8. - Family history:: not pertinent. ROS: 17:29 Constitutional: Negative for fever, chills, and weight loss, Eyes: Negative for injury, belkis pain, redness, and discharge, ENT: Negative for injury, pain, and discharge, Neck: Negative for injury, pain, and swelling, Abdomen/GI: Negative for abdominal pain, nausea, vomiting, diarrhea, and constipation, Back: Negative for injury and pain, : Negative for injury, bleeding, discharge, and swelling, Skin: Negative for injury, rash, and discoloration, Neuro: Negative for headache, weakness, numbness, tingling, and seizure, Psych: Negative for depression, anxiety, suicide ideation, homicidal ideation, and hallucinations, Allergy/Immunology: Negative for hives, rash, and allergies, Endocrine: Negative for neck swelling, polydipsia, polyuria, polyphagia, and marked weight changes. 17:29 Cardiovascular: Positive for chest pain, palpitations. 17:29 Respiratory: Positive for cough, dyspnea on exertion, orthopnea, shortness of breath, wheezing, expiratory. 17:29 MS/extremity: Positive for swelling, tenderness, of the right leg and left leg. Exam: 17:30 Constitutional: This is a well developed, well nourished patient who is awake, alert, belkis and in no acute distress. Head/Face: Normocephalic, atraumatic. Eyes: Pupils equal round and reactive to light, extra-ocular motions intact. Lids and lashes normal. Conjunctiva and sclera are non-icteric and not injected. Cornea within normal limits. Periorbital areas with no swelling, redness, or edema. ENT: Nares patent. No nasal discharge, no septal abnormalities noted. Tympanic membranes are normal and external auditory canals are clear. Oropharynx with no redness, swelling, or masses, exudates, or evidence of obstruction, uvula midline. Mucous membranes moist. Neck: Trachea midline, no thyromegaly or masses palpated, and no cervical lymphadenopathy. Supple, full range of motion without nuchal rigidity, or vertebral point tenderness. No Meningismus. Chest/axilla: Normal chest wall appearance and motion. Nontender with no deformity. No lesions are appreciated. Abdomen/GI: Soft, non-tender, with normal bowel sounds. No distension or tympany. No guarding or rebound. No evidence of tenderness throughout. Back: No spinal tenderness. No costovertebral tenderness. Full range of motion. Female : Normal external genitalia. Skin: Warm, dry with normal turgor. Normal color with no rashes, no lesions, and no evidence of cellulitis. Neuro: Awake and alert, GCS 15, oriented to person, place, time, and situation. Cranial nerves II-XII grossly intact. Motor strength 5/5 in all extremities. Sensory grossly intact. Cerebellar exam normal. Normal gait. Psych: Awake, alert, with orientation to person, place and time. Behavior, mood, and affect are within normal limits. 17:30 Cardiovascular: Rate: tachycardic, Rhythm: regular, Pulses: Pulses are 4+ in bilateral radial, brachial, femoral, popliteal, posterior tibial and and dorsalis pedis arteries.. Heart sounds: normal, Edema: 3+ edema to level of left midcalf and right midcalf, JVD: is not appreciated, Bilateral blood pressure: is unequal. Vital Signs: 17:18 BP 184 / 109; Pulse 129; Resp 28; Temp 98.3(TE); Pulse Ox 67% on R/A; Weight 102.06 kg ca1 (R); Height 5 ft. 6 in. (167.64 cm) (R); 17:42 Pulse 125; Pulse Ox 96% on BiPAP; ph 18:42 BP 133 / 93; Pulse 119; Resp 20; Pulse Ox 97% on 60% BiPAP; ph 19:12 BP 128 / 86; Pulse 116; Resp 20; Pulse Ox 96% on 60% BiPAP; ph 19:45 BP 151 / 85; Pulse 112; Resp 22; Temp 97.8; Pulse Ox 99% on 60% BiPAP; rr5 20:12 BP 136 / 81; Pulse 113; Resp 21; Pulse Ox 98% on 60% BiPAP; rr5 20:50 BP 137 / 75; Pulse 110; Resp 22; Pulse Ox 98% on 60% BiPAP; rr5 17:18 Body Mass Index 36.32 (102.06 kg, 167.64 cm) ca1 MDM: 17:16 Patient medically screened. [facility] 17:31 Data reviewed: vital signs, nurses notes, lab test result(s), EKG, radiologic studies, belkis plain films. 09/13 17:26 Order name: Basic Metabolic Panel; Complete Time: 18:12 [facility] 09/13 17:26 Order name: CBC with Diff; Complete Time: 17:59 [facility] 09/13 17:26 Order name: LFT's; Complete Time: 18:12 [facility] 09/13 17:26 Order name: Magnesium; Complete Time: 18:12 [facility] 09/13 17:26 Order name: NT PRO-BNP; Complete Time: 18:12 [facility] 09/13 17:26 Order name: PT-INR; Complete Time: 17:59 [facility] 09/13 17:26 Order name: Troponin (emerg Dept Use Only); Complete Time: 18:12 [facility] 09/13 17:26 Order name: XRAY Chest (1 view) [facility] 09/13 17:26 Order name: Blood Culture Adult (2) [facility] 09/13 17:26 Order name: BIPAP [facility] 09/13 17:26 Order name: Urine Culture [facility] 09/13 17:26 Order name: Lactate; Complete Time: 18:12 [facility] 09/13 18:29 Order name: Urine Dipstick--Ancillary (enter results) 09/13 18:33 Order name: Urine Dipstick-Ancillary [facility] 09/13 17:26 Order name: EKG; Complete Time: 17:27 [facility] 09/13 17:26 Order name: Cardiac monitoring; Complete Time: 17:27 [facility] 09/13 17:26 Order name: EKG - Nurse/Tech; Complete Time: 18:06 [facility] 09/13 17:26 Order name: IV Saline Lock; Complete Time: 17:37 [facility] 09/13 18:21 Order name: CONS Physician Consult [facility] 09/13 17:26 Order name: Labs collected and sent; Complete Time: 17:37 [facility] 09/13 17:26 Order name: O2 Per Protocol; Complete Time: 17:27 [facility] 09/13 17:26 Order name: O2 Sat Monitoring; Complete Time: 17:27 [facility] 09/13 17:26 Order name: Urine Dipstick-Ancillary (obtain specimen); Complete Time: 19:45 [facility] Administered Medications: 17:45 Drug: Xopenex 3.75 mg Route: Inhalation; ph 18:15 Follow up: Response: No adverse reaction ph 17:48 Drug: SOLU-Medrol 125 mg Route: IVP; Site: left antecubital; ph 18:15 Follow up: Response: No adverse reaction ph 17:50 Drug: Lasix 40 mg Route: IVP; Site: left antecubital; ph 18:58 Follow up: Response: No adverse reaction ph 17:50 Drug: Rocephin 1 grams Route: IV; Rate: per protocol; Site: left antecubital; ph 18:15 Follow up: Response: No adverse reaction; IV Status: Completed infusion ph 17:55 Drug: AtroVENT Aerosol 0.5 mg Route: Inhalation; ph 18:15 Follow up: Response: No adverse reaction ph 19:00 Drug: Pepcid 20 mg {Note: given by Maya Nolan} Route: IVP; Site: left antecubital; rr5 20:00 Follow up: Response: No adverse reaction rr5 19:05 Drug: Decadron - Dexamethasone 10 mg Route: IVP; Site: left antecubital; ph 20:05 Follow up: Response: No adverse reaction rr5 19:28 Dru mg of (Zithromax 500 mg, NS 0.9% 250 ml) Route: IVPB; Infused Over: 1 hrs; rr5 Site: left antecubital; 20:30 Follow up: Response: No adverse reaction; IV Status: Completed infusion; IV Intake: rr5 250ml 19:30 Not Given (Other Intervention Used): Nitro-Bid Ointment 2 % 1 inches Transdermal once rr5 19:30 Drug: Xopenex 1.25 mg Route: Inhalation; rr5 20:30 Follow up: Response: No adverse reaction rr5 19:30 Drug: Nitro-Bid Ointment 2 % 0.5 inches {Note: right.} Route: Transdermal; Site: rr5 anterior chest wall; 20:30 Follow up: Response: No adverse reaction rr5 Disposition: 09/14/19 18:15 Hospitalization ordered by Marck Alvarez for Inpatient Admission. Preliminary diagnosis are Chronic obstructive pulmonary disease with (acute) exacerbation, Edema, unspecified, Essential (primary) hypertension, Hypoxemia. - Bed requested for Telemetry/MedSurg (Inpatient). - Status is Inpatient Admission. rr5 - Condition is Fair. - Problem is new. - Symptoms have improved. Signatures: Dispatcher [employer] EDMS Rosario Duarte RN RN mw Anderson, Corey, MD MD cha Hall, Patricia, RN RN Hasmukh Bronson RN RN rr5 Marcelle Stack RN RN ca1 Corrections: (The following items were deleted from the chart) 19:34 18:15 Hospitalization Ordered by Marck Alvarez MD for Inpatient Admission. Preliminary diagnosis is Chronic obstructive pulmonary disease with (acute) exacerbation; Edema, unspecified; Essential (primary) hypertension; Hypoxemia. Bed requested for Telemetry/MedSurg (Inpatient). Status is Inpatient Admission. Condition is Fair. Problem is new. Symptoms have improved. belkis 20:55 19:34 09/14/2019 18:15 Hospitalization Ordered by Marck Alvarez MD for Inpatient rr5 Admission. Preliminary diagnosis is Chronic obstructive pulmonary disease with (acute) exacerbation; Edema, unspecified; Essential (primary) hypertension; Hypoxemia. Bed requested for Telemetry/MedSurg (Inpatient). Status is Inpatient Admission. Condition is Fair. Problem is new. Symptoms have improved. mw
[2019-09-14 18:33] LABS: Urine Blood TRACE (NEG); Urine Glucose NEGATIVE (NEG); Urine Protein TRACE (NEG); Urine Specific Gravity 1.025 (1.005-1.030); Urine pH 5.5 (5.0-7.0)
--- NOTE | 2019-09-14 18:33 | RAD REPORT ---
EXAM DESCRIPTION: RAD - Chest Single View - 09/14/2019 5:46 pm CLINICAL HISTORY: Cough;COPD;Dyspnea COMPARISON: Chest Single View dated 05/18/2019 TECHNIQUE: AP portable chest image was obtained 09/14/2019 5:46 pm . FINDINGS: No peripheral mass consolidation. Interstitial markings are mildly prominent. Pattern is s imilar or slightly less pronounced than seen previously. A mild edema from failure or volume overload suspected. Vasculature is mildly prominent. Heart size is upper normal. No measurable pleural effusi on and no pneumothorax. No acute bony abnormality seen. No acute aortic findings suspected. IMPRESSION: Mild failure or volume overload suspected. No focal mass or consolidation.
[2019-09-14] MEDS ORDERED: dexAMETHasone 4 MG/ML VIAL ONE (18:50)
[2019-09-14] MEDS ORDERED: FAMOTIDINE 20 MG/2 ML VIAL IV ONE (18:50)
[2019-09-14] MEDS ORDERED: NA CHLORIDE 0.9% 250 ML ONE (19:14)
[2019-09-14] MEDS ORDERED: AZITHROMYCIN 500 MG INJ IVPB ONE (19:14)
[2019-09-14] MEDS ORDERED: MORPHINE 4 MG/ML SYR ONE (20:36)
[2019-09-14] MEDS ORDERED: POTASSIUM 25 MEQ EFFERV TAB ONE (20:36)
[2019-09-14] MEDS ORDERED: ONDANSETRON 4 MG/2 ML VIAL ONE (20:36)
[2019-09-14] MEDS ORDERED: ALBUTEROL 2.5 MG/3 ML NEB SOL NEB PRN (21:37)
[2019-09-14] MEDS ORDERED: IPRATROPIUM BROM 0.5MG/2.5ML NEB PRN (21:37)
[2019-09-14] MEDS ORDERED: ONDANSETRON 4 MG/2 ML VIAL IV PRN (21:37)
[2019-09-14] MEDS: POTASSIUM 25 MEQ EFFERV TAB PO SCH (22:45)
[2019-09-14] MEDS: FAMOTIDINE 20 MG/2 ML VIAL IV SCH (22:45)
[2019-09-15] MEDS: NITROGLYCERIN 1 GM PKT TD SCH ×2 (00:11→05:16)
[2019-09-15] MEDS: METHYLPREDNISOLONE 40 MG INJ IV SCH ×2 (00:11→08:08)
[2019-09-15] MEDS: ALPRAZOLAM 0.25 MG TABLET PO PRN ×2 (04:31→22:18)
[2019-09-15 04:37] LABS: Absolute Lymphocytes (CBC) 0.8 K/uL (0.7-4.9); Basophils % 0.6 % (0-1.3); Hematocrit 49.2 % (36.0-45.0); Lymphocytes % 7.2 % (15.3-44.8); MPV 9.7 fL (7.6-11.3); RBC Red Blood Cell Count 5.58 M/uL (3.86-4.86)
[2019-09-15 04:53] LABS: Potassium 4.6 mmol/L (3.5-5.1)
[2019-09-15 05:01] LABS: Blood Morphology Comment NOT SEEN (NOT SEEN); Platelet Estimate ADEQ
[2019-09-15] MEDS: CEFTRIAXONE/SWI 1gm 1 GM/10 ML SYR IV SCH ×2 (05:16→17:07)
--- NOTE | 2019-09-15 05:55 | EKG ---
Test Date: 2019-09-14 Test Time: 18:27:38 [place] Regenerator: RASHEED MEASUREMENT RESULTS: Intervals: Rate: 114 MN: 164 QRSD: 72 QT: 332 QTc: 457 [place]: P: 78 MN: 164 QRS: 68 T: 77 INTERPRETIVE STATEMENTS: Sinus tachycardia Biatrial enlargement Abnormal ECG Compared to ECG 05/15/2019 17:20:49 Atrial abnormality now present Myocardial infarct finding no longer present Electronically Signed On 09-15-19 05:54:39 INFORMATICS SCIENTIST by Tobin Briggs
--- NOTE | 2019-09-15 07:23 | RAD REPORT ---
EXAM DESCRIPTION: RAD - Chest Single View - 09/15/2019 7:02 am CLINICAL HISTORY: Chest Pain COMPARISON: Chest Single View dated 09/14/2019; Chest Single View dated 05/18/2019 TECHNIQUE: AP portable chest image was obtained 09/15/2019 7:02 am . FINDINGS: No focal mass or consolidation. Interstitial pattern is less pronounced than the compariso n. Portable technique and body habitus resulting in accentuated lung base markings. Heart and vascula ture are normal. No measurable pleural effusion and no pneumothorax. No acute bony abnormality seen. No acute aortic findings suspected. IMPRESSION: Mild CHF/volume overload pattern has resolved or nearly fully resolved. No new or progressive process.
[2019-09-15] MEDS: POTASSIUM 25 MEQ EFFERV TAB PO SCH ×2 (08:08→19:51)
[2019-09-15] MEDS: ASPIRIN EC 81 MG TAB PO SCH (08:08)
[2019-09-15] MEDS: ENOXAPARIN 40 MG/0.4 ML SQ SCH (08:08)
[2019-09-15] MEDS: FAMOTIDINE 20 MG/2 ML VIAL IV SCH (08:09)
[2019-09-15] MEDS ORDERED: FUROSEMIDE 20 MG/ 2ML VIAL IV SCH (09:00)
[2019-09-15] MEDS: SPIRONOLACTONE 25 MG TABLET PO SCH ×2 (09:24→19:52)
[2019-09-15] MEDS: predniSONE 20 MG TAB PO SCH ×2 (09:24→19:52)
[2019-09-15] MEDS: AZITHROMYCIN 250 MG TAB PO SCH (09:24)
[2019-09-15] MEDS: IPRATROPIUM BROM 0.5MG/2.5ML NEB SCH ×2 (12:19→20:38)
[2019-09-15] MEDS: ARFORMOTEROL TARTRATE 15 MCG/2 ML VIAL.NEB NEB SCH ×2 (12:19→20:38)
--- NOTE | 2019-09-15 12:20 | P.CNS ---
Date of Consult: 09/15/19 Chief Complaint: Shortness of breath and cough History of Present Illness: Patient is 59 years of age with a history of COPD got worse over the past week cough congestion 0 Shiley she has no insurance and using breathing treatments and Ventolin at home and appeared in the emergency room doing somewhat better productive cough Allergies No Known Allergies Allergy (Unverified 12/29/18 17:50) Home Medications: Albuterol Sulfate [Albuterol Sulfate 0.083% Neb Soln] 1 aero NEB QID 09/15/19 Albuterol Sulfate [Proair Hfa] 2 puff IH QID 09/15/19 Amlodipine [Norvasc*] 1 tab PO DAILY 09/15/19 Pantoprazole Sodium [Protonix] 1 tab PO DAILY 09/15/19 Spironolact/Hydrochlorothiazid [Spironolactone-Hctz 25-25 Tab] 1 tab PO DAILY - Past Medical/Surgical History Diabetic: No -: COPD -: HTN -: Asthma -: bronchitis -: D & C 4x for miscarriages - Family History Mother Medical History: Heart disease, Hypertension, Kidney disease Notes: dialysis Father Medical History: Hypertension, Diabetes Notes: heavy smoker/drinker Brother Medical History: Diabetes Sister Medical History: Hypertension Notes: osteoarthritis. heart failure - Social History Smoking Status: Current every day smoker Alcohol use: Yes CD- Drugs: No Caffeine use: Yes Place of Residence: Home Review of Systems 10-point ROS is otherwise unremarkable General: Weakness Respiratory: Cough, Shortness of Breath Physical Examination Temp Pulse Resp BP Pulse Ox 97.2 F 95 H 20 144/88 H 95 09/15/19 08:00 09/15/19 09:24 09/15/19 08:00 09/15/19 09:24 09/15/19 08:00 General: Alert, Oriented x3, Mild distress Respiratory: Expiratory wheezes Cardiovascular: No edema, Normal S1 S2 Laboratory Data (last 24 hrs) 09/14/19 17:31: PT 11.8, INR 1.00 09/14/19 17:31: WBC 9.2, Hgb 15.5 H, Hct 49.2 H, Plt Count 174 09/14/19 17:31: Sodium 140, Potassium 4.1, BUN 12, Creatinine 0.87, Glucose 112 H, Magnesium 2.1, Total Bilirubin 0.6, AST 32, ALT 43, Alkaline Phosphatase 146 H - Problems (1) COPD exacerbation Current Visit: No Status: Acute Plan: Patient is 59 years of age admitted with COPD exacerbation currently patient does not have any insurance scheduled to have some in May uses short- acting nebulizers on a p.r.n. basis got worse over the past continue with bronchodilators I will provide her with some samples change to p.o. prednisone continue with antibiotic daily room air pulse ox no evidence of infection possible discharge tomorrow vital signs stable
[2019-09-15] MEDS: GUAIFENESIN/DM 5 ML UCUP PO PRN ×2 (12:39→19:51)
[2019-09-15] MEDS: ALBUTEROL 2.5 MG/3 ML NEB SOL NEB PRN (16:12)
--- NOTE | 2019-09-15 18:47 | HP ---
Date of Admission: 09/14/2019 Chief Complaint: Wheezing and coughing. History Of Present Illness: 59-year-old female, who is known to have COPD, was brought to the emerge ncy room because of wheezing and continued coughing. Patient had evaluation done including chest x-r ay, breathing treatments. She continued to have wheezing. Patient is admitted. Past Medical History: Positive for COPD, hypertension, and asthmatic element. Home Medicines: Albuterol inhalation, Symbicort. Allergies: NONE. Family History: Noncontributory. Personal History: Patient stopped smoking as per her statement. Review of Systems: No chest pain. Physical Examination: General: Revealed 59-year-old female with audible wheezing. Vital Signs: Temperature normal. HEENT: Negative. Neck: Supple. JVD negative. Chest: Bilateral wheezes. Heart: Regular. Abdomen: Soft. Extremities: No edema. Neurologic: Negative. Laboratory Data: White count normal. Chem profile normal. Troponin normal. BNP normal. Chest x-ray done in the emergency room showed no evidence of pneumonia, prominent markings noted. Assessment: 1.Chronic obstructive pulmonary disease exacerbation. 2.Chronic obstructive pulmonary disease. 3.Hypertension. Plan: Patient is doing better this morning as per her statement and the volume overload suspicion on the chest x-ray, does not go with her clinical history as well as normal BNP. Patient will be treat ed as COPD exacerbation. ELDA/PAULY Voice ID: [id number]
[2019-09-15] MEDS ORDERED: AMLODIPINE 5 MG TAB PO ONE (21:53)
[2019-09-15] MEDS: ACETAMINOPHEN 325 MG TABLET PO PRN (22:18)
[2019-09-16] MEDS: ALBUTEROL 2.5 MG/3 ML NEB SOL NEB PRN ×2 (01:30→15:21)
[2019-09-16] MEDS: IPRATROPIUM BROM 0.5MG/2.5ML NEB SCH ×4 (01:30→20:35)
[2019-09-16] MEDS: CEFTRIAXONE/SWI 1gm 1 GM/10 ML SYR IV SCH (05:37)
[2019-09-16] MEDS: ALPRAZOLAM 0.25 MG TABLET PO PRN ×2 (05:37→11:45)
[2019-09-16] MEDS: ARFORMOTEROL TARTRATE 15 MCG/2 ML VIAL.NEB NEB SCH ×2 (08:00→20:35)
[2019-09-16] MEDS: ENOXAPARIN 40 MG/0.4 ML SQ SCH (08:26)
[2019-09-16] MEDS: SPIRONOLACTONE 25 MG TABLET PO SCH ×2 (08:28→20:09)
[2019-09-16] MEDS: AMLODIPINE 5 MG TAB PO SCH (08:28)
[2019-09-16] MEDS: predniSONE 20 MG TAB PO SCH ×2 (08:28→20:08)
[2019-09-16] MEDS: POTASSIUM 25 MEQ EFFERV TAB PO SCH ×2 (08:28→20:10)
[2019-09-16] MEDS: ASPIRIN EC 81 MG TAB PO SCH (08:28)
[2019-09-16] MEDS: AZITHROMYCIN 250 MG TAB PO SCH (08:29)
--- NOTE | 2019-09-16 08:34 | P.PN ---
Subjective Date of Service: 09/16/19 Chief Complaint: Shortness of breath and cough Subjective: Worsening (Patient is not doing well worse complaining of more shortness of breath knocked on the sleep disturbance still very hypoxic) Review of Systems General: Weakness Respiratory: Cough, Shortness of Breath Physical Examination - Vital Signs Temperature: 97 F Blood Pressure: 154/85 Pulse: 100 Respirations: 18 Pulse Ox (%): 100 - Physical Exam General: Alert, Moderate distress Respiratory: Expiratory wheezes Cardiovascular: No edema, Normal S1 S2 Assessment & Plan - Problems (Diagnosis) (1) COPD exacerbation Current Visit: No Status: Acute Plan: Patient admitted with COPD exacerbation continue with present therapy low-dose Lasix echocardiogram pending patient is hypoxic check room air blood gas trial of low-dose theophylline
[2019-09-16] MEDS ORDERED: CEFUROXIME 250 MG TAB PO SCH (09:00)
[2019-09-16] MEDS: THEOPHYLLINE SR 100 MG TAB PO SCH (10:42)
[2019-09-16] MEDS: FUROSEMIDE 20 MG/ 2ML VIAL IV SCH (10:42)
[2019-09-16] MEDS: HYDRALAZINE HCL 20 MG/ML VIAL IV PRN (11:31)
--- NOTE | 2019-09-16 11:33 | ECHO ---
HEIGHT: 5 ft 6 in WEIGHT: 226 lb 12.8 oz DATE OF STUDY: 09/16/[address]: Jett Camacho MD 2-DIMENSIONAL: YES M.MODE: YES DOPPLER: YES COLOR FLOW: YES TDS: YES PORTABLE: NO DEFINITY: NO BUBBLE STUDY: NO DIAGNOSIS: CONGESTIVE HEART FAILURE CARDIAC HISTORY: CATHERIZATION: NO SURGERY: NO PROSTHETIC VALVE: NO PACEMAKER: NO MEASUREMENTS (cm) DIASTOLIC (NORMALS) SYSTOLIC (NORMALS) IVSd 1.0 (0.6-1.2) LA Diam 3.3 (1.9-4.0) LVEF 58% LVIDd 3.7 (3.5-5.7) LVIDs 2.6 (2.0-3.5) %FS 30% LVPWd 1.0 (0.6-1.2) Ao Diam 2.1 (2.0-3.7) 2 DIMENSIONAL ASSESSMENT: RIGHT ATRIUM: NORMAL LEFT ATRIUM: NORMAL RIGHT VENTRICLE: NORMAL LEFT VENTRICLE: NORMAL TRICUSPID VALVE: NORMAL MITRAL VALVE: NORMAL PULMONIC VALVE: NORMAL AORTIC VALVE: NORMAL PERICARDIAL EFFUSION: NONE AORTIC ROOT: ATHEROSCLEROTIC CHANGES LEFT VENTRICULAR WALL MOTION: NORMAL. DOPPLER/COLOR FLOW: IMPAIRED LEFT VENTRICULAR RELAXATION. COMMENTS: NORMAL LEFT VENTRICULAR EJECTION FRACTION. ATHEROSCLEROTIC CHANGES IN AORTIC ROOT. IMPAIRED VENTRICULAR RELAXATION. TECHNOLOGIST: VISHNU CHONG
[2019-09-16] MEDS ORDERED: FUROSEMIDE 40 MG/4 ML VIAL IV ONE (11:51)
[2019-09-16] MEDS ORDERED: METHYLPREDNISOLONE 40 MG INJ IV ONE (11:52)
[2019-09-16] MEDS ORDERED: METHYLPREDNISOLONE 125 MG INJ ONE (11:59)
[2019-09-16] MEDS ORDERED: propofoL 1,000 MG/100 ML VIAL IV ONE (12:26)
[2019-09-16] MEDS ORDERED: RSI MEDICATION KIT IV ONE (12:26)
--- NOTE | 2019-09-16 13:00 | PN ---
Patient still has considerable wheezing and she is not moving enough air and she is short of breath a t rest. Patient is already getting breathing treatments and steroids. Patient very likely will need another day or 2 of hospital stay. ELDA/PAULY Voice ID: [id number] Report ID: [id number]
[2019-09-16] MEDS ORDERED: CISATRACURIUM INJECTION 2 MG/ML (10 ML Vial) IV ONE (13:09)
--- NOTE | 2019-09-16 13:12 | RAD REPORT ---
EXAM DESCRIPTION: RAD - Chest Single View - 09/16/2019 1:01 pm CLINICAL HISTORY: E-Tube placement Chest pain. COMPARISON: Chest Single View dated 09/15/2019; Chest Single View dated 09/14/2019; Chest Single View da addie 05/18/2019; Chest Single View dated 05/14/2019 FINDINGS: Portable technique limits examination quality. Tip of the ET tube is above the tiana. The lungs are grossly clear. The heart is normal in size.
[2019-09-16] MEDS: propofoL 1,000 MG/100 ML VIAL IV PRN ×3 (13:50→21:01)
[2019-09-16] MEDS: LORazepam 2 MG/ML VIAL IV PRN (14:48)
[2019-09-16 15:01] LABS: Arterial Blood Carboxyhemoglob 0.7 % (0-1.5); Blood Gas Oxyhemoglobin 97.1 % (94-97); Blood O2 Saturation 98.8 % (92-98.5)
[2019-09-16] MEDS: HALOPERIDOL LACT 5 MG/ML INJ IV PRN (15:13)
[2019-09-16] MEDS: FENTANYL CITR 100 MCG/2 ML IV PRN (15:19)
[2019-09-16] MEDS: MIDAZOLAM HCL 2 MG/2 ML INJ IV PRN (15:55)
[2019-09-16 16:06] LABS: Blood Gas Oxyhemoglobin 92.1 % (94-97); Blood O2 Saturation 93.8 % (92-98.5)
[2019-09-16] MEDS: METHYLPREDNISOLONE 40 MG INJ IV SCH (17:21)
[2019-09-16 17:34] LABS: Arterial Blood Carboxyhemoglob 0.9 % (0-1.5); Blood Gas Oxyhemoglobin 85.5 % (94-97)
[2019-09-16] MEDS: CEFEPIME/SWI 1gm 10 ML IVP SCH (20:10)
[2019-09-16] MEDS: FAMOTIDINE 20 MG/2 ML VIAL IV SCH (20:11)
[2019-09-16] MEDS ORDERED: CEFEPIME 1 GM/VIAL IV SCH (21:00)
[2019-09-17] MEDS: FENTANYL CITR 100 MCG/2 ML IV PRN ×4 (00:59→21:01)
[2019-09-17] MEDS: propofoL 1,000 MG/100 ML VIAL IV PRN ×2 (00:59→04:30)
[2019-09-17] MEDS: METHYLPREDNISOLONE 40 MG INJ IV SCH ×3 (01:12→17:06)
[2019-09-17] MEDS: LORazepam 2 MG/ML VIAL IV PRN ×6 (01:31→23:08)
[2019-09-17] MEDS: CISATRACURIUM INJECTION 2 MG/ML (10 ML Vial) IV PRN ×3 (01:45→23:08)
[2019-09-17] MEDS: IPRATROPIUM BROM 0.5MG/2.5ML NEB SCH ×4 (02:00→13:15)
[2019-09-17 05:19] LABS: Basophils % 0.3 % (0-1.3); Lymphocytes % 5.3 % (15.3-44.8); MPV 9.3 fL (7.6-11.3); RBC Red Blood Cell Count 5.33 M/uL (3.86-4.86)
[2019-09-17 05:34] LABS: Potassium 4.7 mmol/L (3.5-5.1)
[2019-09-17 06:33] LABS: Arterial Blood Carboxyhemoglob 0.9 % (0-1.5); Blood Gas Oxyhemoglobin 87.6 % (94-97); Blood O2 Saturation 89.2 % (92-98.5)
[2019-09-17] MEDS: ALBUTEROL 2.5 MG/3 ML NEB SOL NEB PRN (08:05)
[2019-09-17] MEDS: ARFORMOTEROL TARTRATE 15 MCG/2 ML VIAL.NEB NEB SCH ×2 (08:05→20:00)
--- NOTE | 2019-09-17 08:22 | RAD REPORT ---
EXAM DESCRIPTION: Adri Single View09/17/2019 6:32 am CLINICAL HISTORY: Shortness of breath COMPARISON: September 15 FINDINGS: An endotracheal tube has its tip well above the tiana. Nasogastric tube is present stomac h. Lungs appear clear of acute infiltrate. Heart is probably upper limits normal size
[2019-09-17] MEDS: SPIRONOLACTONE 25 MG TABLET PO SCH ×2 (08:23→21:06)
[2019-09-17] MEDS: POTASSIUM 25 MEQ EFFERV TAB PO SCH ×2 (08:23→21:06)
[2019-09-17] MEDS: FAMOTIDINE 20 MG/2 ML VIAL IV SCH ×2 (08:23→21:06)
[2019-09-17] MEDS: FUROSEMIDE 20 MG/ 2ML VIAL IV SCH (08:24)
[2019-09-17] MEDS: ASPIRIN EC 81 MG TAB PO SCH (08:24)
[2019-09-17] MEDS: predniSONE 20 MG TAB PO SCH ×2 (08:24→21:00)
[2019-09-17] MEDS: ENOXAPARIN 40 MG/0.4 ML SQ SCH (08:25)
[2019-09-17] MEDS: AMLODIPINE 5 MG TAB PO SCH (08:26)
[2019-09-17] MEDS ORDERED: AMLODIPINE 2.5 MG TAB ONE (08:26)
[2019-09-17] MEDS: CEFEPIME/SWI 1gm 10 ML IVP SCH ×2 (08:27→21:06)
[2019-09-17] MEDS: THEOPHYLLINE SR 100 MG TAB PO SCH (09:51)
[2019-09-17] MEDS: MIDAZOLAM HCL 2 MG/2 ML INJ IV PRN ×4 (10:27→23:32)
--- NOTE | 2019-09-17 13:51 | P.PN ---
Subjective Date of Service: 09/17/19 Chief Complaint: Respiratory failure Patient's condition is stable agitation has reduced currently on SIMV and pressure support still wheezing becoming very agitated requiring considerable amount of sedation starts coughing when patient wakes up Review of Systems is unable to be obtained Physical Examination - Vital Signs Temperature: 97 F Blood Pressure: 125/78 Pulse: 118 Respirations: 19 Pulse Ox (%): 94 - Physical Exam General: Unresponsive Respiratory: Expiratory wheezes Cardiovascular: No edema, Regular rate/rhythm Assessment & Plan - Problems (Diagnosis) (1) Respiratory failure Current Visit: Yes Status: Acute Plan: Patient is 59 years of age developed respiratory failure hypoxic hypercapnic of was intubated yesterday complicated by extreme agitation patient did well on SIMV and pressure support with high spontaneous tidal volumes chest x-ray today is clear white count is mildly elevated all meds and labs reviewed mild renal insufficiency continue with present supportive therapy probably try and wean and extubate tomorrow
[2019-09-17 14:33] LABS: Anisocytosis 1+; Blood Morphology Comment NOTED (NOT SEEN); Platelet Estimate ADEQ; Platelets, Giant RARE; Urine White Blood Cell Casts OK
[2019-09-17] MEDS: HALOPERIDOL LACT 5 MG/ML INJ IV PRN (23:15)
[2019-09-18] MEDS: FENTANYL CITR 100 MCG/2 ML IV PRN ×3 (00:30→19:25)
[2019-09-18] MEDS: METHYLPREDNISOLONE 40 MG INJ IV SCH ×3 (00:39→17:40)
[2019-09-18] MEDS: ALBUTEROL 2.5 MG/3 ML NEB SOL NEB PRN (02:05)
[2019-09-18] MEDS: LORazepam 2 MG/ML VIAL IV PRN ×2 (02:36→18:49)
[2019-09-18] MEDS: CISATRACURIUM INJECTION 2 MG/ML (10 ML Vial) IV PRN (03:10)
[2019-09-18 05:53] LABS: Absolute Lymphocytes (CBC) 0.6 K/uL (0.7-4.9); Basophils % 0.5 % (0-1.3); Hematocrit 47.2 % (36.0-45.0); Lymphocytes % 3.6 % (15.3-44.8); MPV 10.8 fL (7.6-11.3)
[2019-09-18 05:57] LABS: Blood Gas Oxyhemoglobin 86.7 % (94-97); Blood O2 Saturation 88.5 % (92-98.5)
[2019-09-18 06:05] LABS: Potassium 4.5 mmol/L (3.5-5.1)
[2019-09-18] MEDS: IPRATROPIUM BROM 0.5MG/2.5ML NEB SCH ×3 (07:40→19:55)
[2019-09-18] MEDS: ARFORMOTEROL TARTRATE 15 MCG/2 ML VIAL.NEB NEB SCH ×2 (07:40→19:55)
--- NOTE | 2019-09-18 08:31 | RAD REPORT ---
EXAM DESCRIPTION: Adri Single View09/18/2019 5:50 am CLINICAL HISTORY: Shortness of breath COMPARISON: September 17 FINDINGS: Endotracheal tube with its tip well above the tiana. Nasogastric tube within the stomach Lungs appear clear of acute infiltrate. Heart is upper limits normal size
[2019-09-18] MEDS: THEOPHYLLINE SR 100 MG TAB PO SCH (09:00)
[2019-09-18] MEDS ORDERED: AMLODIPINE 2.5 MG TAB ONE (09:57)
[2019-09-18] MEDS: ENOXAPARIN 40 MG/0.4 ML SQ SCH (10:03)
[2019-09-18] MEDS: ASPIRIN 81 MG CHEWABLE TABLET PO SCH (10:03)
[2019-09-18] MEDS: FUROSEMIDE 20 MG/ 2ML VIAL IV SCH (10:04)
[2019-09-18] MEDS: AMLODIPINE 5 MG TAB PO SCH (10:04)
[2019-09-18] MEDS: FAMOTIDINE 20 MG/2 ML VIAL IV SCH (10:04)
[2019-09-18] MEDS: POTASSIUM 25 MEQ EFFERV TAB PO SCH ×2 (10:05→19:35)
[2019-09-18] MEDS: SPIRONOLACTONE 25 MG TABLET PO SCH ×2 (10:07→19:35)
[2019-09-18] MEDS: CEFEPIME/SWI 1gm 10 ML IVP SCH (10:08)
--- NOTE | 2019-09-18 10:11 | P.PN ---
Subjective Date of Service: 09/18/19 Chief Complaint: Respiratory failure Patient's condition is stable she does get very agitated Review of Systems is unable to be obtained Physical Examination - Vital Signs Temperature: 97.2 F Blood Pressure: 120/96 Pulse: 100 Respirations: 18 Pulse Ox (%): 97 - Physical Exam General: Unresponsive Respiratory: Diminished, Expiratory wheezes Cardiovascular: No edema, Regular rate/rhythm Assessment & Plan - Problems (Diagnosis) (1) Respiratory failure Current Visit: Yes Status: Acute Plan: Patient admitted with respiratory failure stable white count is elevated may be from steroids will Dc antibiotics no evidence of sepsis plan to wean and extubate today chest x-ray clear Qualifiers: Chronicity: acute on chronic
--- NOTE | 2019-09-18 12:45 | PN ---
Patient is unable to come off ventilator. She is still sedated. Patient has good blood pressure, no rmal temperature. Chest x-ray shows increased markings, but no consolidation. Patient's weaning off process will be re-attempted today. ELDA/PAULY Voice ID: [id number] Report ID: [id number]
[2019-09-18] MEDS: HYDRALAZINE HCL 20 MG/ML VIAL IV PRN ×2 (14:00→17:45)
[2019-09-18 15:34] LABS: Arterial Blood Carboxyhemoglob 1.2 % (0-1.5); Blood Gas Oxyhemoglobin 84.9 % (94-97); Blood O2 Saturation 86.7 % (92-98.5)
[2019-09-19] MEDS: METHYLPREDNISOLONE 40 MG INJ IV SCH ×3 (00:58→16:58)
[2019-09-19] MEDS: IPRATROPIUM BROM 0.5MG/2.5ML NEB SCH ×4 (02:00→19:22)
[2019-09-19 05:13] LABS: Absolute Lymphocytes (CBC) 0.8 K/uL (0.7-4.9); Basophils % 0.4 % (0-1.3); Hematocrit 49.3 % (36.0-45.0); Lymphocytes % 5.5 % (15.3-44.8); MPV 9.6 fL (7.6-11.3); RBC Red Blood Cell Count 5.81 M/uL (3.86-4.86)
[2019-09-19 05:25] LABS: Arterial Blood Carboxyhemoglob 0.9 % (0-1.5); Blood Gas Oxyhemoglobin 91.7 % (94-97); Blood O2 Saturation 93.3 % (92-98.5)
[2019-09-19 05:37] LABS: Potassium 4.6 mmol/L (3.5-5.1)
[2019-09-19] MEDS: ARFORMOTEROL TARTRATE 15 MCG/2 ML VIAL.NEB NEB SCH ×2 (07:47→19:22)
[2019-09-19 08:06] LABS: Blood Morphology Comment NOT SEEN (NOT SEEN); Platelet Estimate ADEQ; Urine White Blood Cell Casts OK
[2019-09-19] MEDS: POTASSIUM 25 MEQ EFFERV TAB PO SCH ×2 (08:58→20:48)
[2019-09-19] MEDS: FUROSEMIDE 20 MG/ 2ML VIAL IV SCH (09:02)
[2019-09-19] MEDS: ENOXAPARIN 40 MG/0.4 ML SQ SCH (09:02)
[2019-09-19] MEDS: SPIRONOLACTONE 25 MG TABLET PO SCH ×2 (09:03→20:48)
[2019-09-19] MEDS: AMLODIPINE 5 MG TAB PO SCH (09:03)
[2019-09-19] MEDS: ASPIRIN 81 MG CHEWABLE TABLET PO SCH (09:03)
--- NOTE | 2019-09-19 09:06 | RAD REPORT ---
EXAM DESCRIPTION: Adri Single View09/19/2019 6:38 am CLINICAL HISTORY: Shortness of breath. Endotracheal tube placement COMPARISON: September 17 FINDINGS: Endotracheal tube is no longer visualized. Lungs appear clear of acute infiltrate. Heart is normal size. Nasogastric tube is not seen IMPRESSION: Endotracheal tube has been removed. No acute abnormality is displayed
--- NOTE | 2019-09-19 10:19 | P.PN ---
Subjective Date of Service: 09/19/19 (Hospitalist) Chief Complaint: Respiratory failure Patient is doing better currently on BiPAP he is to be a little depressed eating and drinking stable Review of Systems General: Weakness Respiratory: Shortness of Breath Physical Examination - Vital Signs Temperature: 97.4 F Blood Pressure: 129/79 Pulse: 128 Respirations: 16 Pulse Ox (%): 97 - Physical Exam General: Alert, Oriented x2, Cooperative Respiratory: Expiratory wheezes Cardiovascular: No edema, Regular rate/rhythm Assessment & Plan - Problems (Diagnosis) (1) Respiratory failure Current Visit: Yes Status: Acute Plan: Patient admitted with respiratory failure doing well on BiPAP is no evidence of sepsis white count is mildly elevated labs unremarkable chest x-rays clear continue with observation advance diet the transfer to the floor tomorrow continue with present treatment Qualifiers: Chronicity: acute on chronic
[2019-09-19] MEDS: FENTANYL CITR 100 MCG/2 ML IV PRN ×2 (10:26→20:49)
[2019-09-19] MEDS ORDERED: NAPROXEN 250 MG TAB PO ONE (15:00)
[2019-09-19] MEDS: ALBUTEROL 2.5 MG/3 ML NEB SOL NEB PRN (19:22)
[2019-09-20] MEDS: METHYLPREDNISOLONE 40 MG INJ IV SCH ×2 (00:37→09:00)
[2019-09-20] MEDS: ALBUTEROL 2.5 MG/3 ML NEB SOL NEB PRN (01:25)
[2019-09-20] MEDS: IPRATROPIUM BROM 0.5MG/2.5ML NEB SCH ×4 (01:25→20:05)
[2019-09-20] MEDS: FENTANYL CITR 100 MCG/2 ML IV PRN ×2 (03:41→22:00)
[2019-09-20] MEDS: ARFORMOTEROL TARTRATE 15 MCG/2 ML VIAL.NEB NEB SCH ×2 (07:55→20:05)
[2019-09-20] MEDS: FUROSEMIDE 20 MG/ 2ML VIAL IV SCH (09:00)
[2019-09-20] MEDS: ASPIRIN 81 MG CHEWABLE TABLET PO SCH (09:00)
[2019-09-20] MEDS: POTASSIUM 25 MEQ EFFERV TAB PO SCH ×2 (09:30→21:35)
[2019-09-20] MEDS: AMLODIPINE 5 MG TAB PO SCH (09:30)
[2019-09-20] MEDS: ENOXAPARIN 40 MG/0.4 ML SQ SCH (09:44)
[2019-09-20] MEDS: GUAIFENESIN/DM 5 ML UCUP PO PRN (09:45)
--- NOTE | 2019-09-20 10:37 | P.PN ---
Subjective Date of Service: 09/20/19 (Hospitalist) Chief Complaint: Respiratory failure Patient is doing well tolerating a diet is able to stay off the BiPAP Review of Systems Unremarkable General: Weakness Respiratory: Shortness of Breath Physical Examination - Vital Signs Temperature: 97.6 F Blood Pressure: 158/90 Pulse: 121 Respirations: 25 Pulse Ox (%): 89 - Physical Exam General: Alert, Oriented x3 Respiratory: Expiratory wheezes Cardiovascular: No edema, Regular rate/rhythm Gastrointestinal: Normal bowel sounds, Soft and benign - Studies Microbiology Data (last 24 hrs): 09/14/19 17:31 Blood - Blood Aerobic Blood Culture - Final No growth in 5 days. 09/14/19 17:31 Blood - Blood Anaerobic Blood Culture - Final No growth in 5 days. 09/14/19 17:28 Blood - Blood Aerobic Blood Culture - Final No growth in 5 days. 09/14/19 17:28 Blood - Blood Anaerobic Blood Culture - Final No growth in 5 days. Assessment & Plan - Problems (Diagnosis) (1) Respiratory failure Current Visit: Yes Status: Acute Plan: Patient admitted with acute on chronic respiratory failure doing better stable in the ICU blood pressure mildly elevated transfer to the floor continue using BiPAP change to p.o. prednisone white count is declining patient is chronically hypercapnic great sat to 90% Qualifiers: Chronicity: acute on chronic
[2019-09-20] MEDS: ACETAMINOPHEN 325 MG TABLET PO PRN (11:45)
[2019-09-20] MEDS: SPIRONOLACTONE 25 MG TABLET PO SCH ×2 (11:48→21:34)
[2019-09-20] MEDS: predniSONE 20 MG TAB PO SCH (21:34)
[2019-09-21] MEDS: IPRATROPIUM BROM 0.5MG/2.5ML NEB SCH ×4 (02:40→20:05)
[2019-09-21] MEDS: FENTANYL CITR 100 MCG/2 ML IV PRN (05:15)
[2019-09-21] MEDS: ARFORMOTEROL TARTRATE 15 MCG/2 ML VIAL.NEB NEB SCH ×2 (07:37→20:05)
[2019-09-21] MEDS: FUROSEMIDE 20 MG/ 2ML VIAL IV SCH (08:29)
[2019-09-21] MEDS: POTASSIUM 25 MEQ EFFERV TAB PO SCH ×2 (08:30→22:08)
[2019-09-21] MEDS: AMLODIPINE 5 MG TAB PO SCH (08:30)
[2019-09-21] MEDS: SPIRONOLACTONE 25 MG TABLET PO SCH ×2 (08:30→22:07)
[2019-09-21] MEDS: predniSONE 20 MG TAB PO SCH (08:30)
[2019-09-21] MEDS: ENOXAPARIN 40 MG/0.4 ML SQ SCH (08:31)
[2019-09-21] MEDS: ASPIRIN 81 MG CHEWABLE TABLET PO SCH (08:31)
[2019-09-21] MEDS: ACETAMINOPHEN 325 MG TABLET PO PRN ×2 (08:36→17:35)
--- NOTE | 2019-09-21 08:40 | P.PN ---
Subjective Date of Service: 09/21/19 Chief Complaint: Respiratory failure Patient is doing better complaining of nasal congestion Review of Systems General: Weakness Respiratory: Shortness of Breath Physical Examination - Vital Signs Temperature: 97.3 F Blood Pressure: 158/96 Pulse: 103 Respirations: 20 Pulse Ox (%): 91 - Physical Exam General: Alert, Oriented x3 Respiratory: Clear to auscultation bilaterally, Diminished Assessment & Plan - Problems (Diagnosis) (1) Respiratory failure Current Visit: Yes Status: Acute Plan: Patient is doing better recheck if the qualify for home O2 complaining of nasal congestion add Flonase reduce dose of prednisone patient has BiPAP hypoxic hypercapnic respiratory failure Qualifiers: Chronicity: acute on chronic
[2019-09-21] MEDS: predniSONE 10 MG TAB PO SCH ×2 (08:57→22:11)
[2019-09-21] MEDS: FLUTICASONE 50MCG NASAL SPRAY NAS SCH (10:08)
[2019-09-21] MEDS: GUAIFENESIN/DM 5 ML UCUP PO PRN (22:06)
[2019-09-22] MEDS: IPRATROPIUM BROM 0.5MG/2.5ML NEB SCH ×4 (01:35→20:02)
--- NOTE | 2019-09-22 02:33 | PN ---
Patient is doing better. She has more ambulatory status in the room. She is able to walk to [facility]. She has mild wheezing. She is afebrile. The attempt to have home oxygen is in progress. ELDA/PAULY Voice ID: [id number] Report ID: [id number]
[2019-09-22 04:30] LABS: Magnesium 2.5 mg/dL (1.8-2.4); Potassium 5.3 mmol/L (3.5-5.1)
[2019-09-22] MEDS: ARFORMOTEROL TARTRATE 15 MCG/2 ML VIAL.NEB NEB SCH ×2 (08:23→20:02)
[2019-09-22] MEDS: POTASSIUM 25 MEQ EFFERV TAB PO SCH ×2 (09:00→20:17)
[2019-09-22] MEDS: FLUTICASONE 50MCG NASAL SPRAY NAS SCH (09:09)
[2019-09-22] MEDS: ENOXAPARIN 40 MG/0.4 ML SQ SCH (09:09)
[2019-09-22] MEDS: ASPIRIN 81 MG CHEWABLE TABLET PO SCH (09:10)
[2019-09-22] MEDS: AMLODIPINE 5 MG TAB PO SCH (09:10)
[2019-09-22] MEDS: FUROSEMIDE 20 MG/ 2ML VIAL IV SCH (09:10)
[2019-09-22] MEDS: SPIRONOLACTONE 25 MG TABLET PO SCH ×2 (09:10→21:30)
[2019-09-22] MEDS: ACETAMINOPHEN 325 MG TABLET PO PRN (09:11)
[2019-09-22] MEDS: predniSONE 10 MG TAB PO SCH ×2 (09:11→21:31)
[2019-09-23] MEDS ORDERED: IPRATROPIUM BROM 0.5MG/2.5ML ONE (01:41)
[2019-09-23] MEDS: IPRATROPIUM BROM 0.5MG/2.5ML NEB SCH ×4 (01:47→20:25)
[2019-09-23 04:39] LABS: Magnesium 2.3 mg/dL (1.8-2.4); Potassium 4.8 mmol/L (3.5-5.1)
[2019-09-23] MEDS: ALBUTEROL 2.5 MG/3 ML NEB SOL NEB PRN ×2 (08:05→14:00)
[2019-09-23] MEDS: ARFORMOTEROL TARTRATE 15 MCG/2 ML VIAL.NEB NEB SCH ×2 (08:05→20:25)
[2019-09-23] MEDS: POTASSIUM 25 MEQ EFFERV TAB PO SCH ×2 (09:00→21:14)
[2019-09-23] MEDS: FLUTICASONE 50MCG NASAL SPRAY NAS SCH (09:22)
[2019-09-23] MEDS: FUROSEMIDE 20 MG/ 2ML VIAL IV SCH (09:24)
[2019-09-23] MEDS: GUAIFENESIN/DM 5 ML UCUP PO PRN ×2 (09:24→21:13)
[2019-09-23] MEDS: SPIRONOLACTONE 25 MG TABLET PO SCH ×2 (09:26→21:14)
[2019-09-23] MEDS: predniSONE 10 MG TAB PO SCH ×2 (09:26→21:14)
[2019-09-23] MEDS: ENOXAPARIN 40 MG/0.4 ML SQ SCH (09:26)
[2019-09-23] MEDS: ASPIRIN 81 MG CHEWABLE TABLET PO SCH (09:27)
[2019-09-23] MEDS: AMLODIPINE 5 MG TAB PO SCH (09:27)
[2019-09-23 15:21] LABS: Blood O2 Saturation 81.5 % (92-98.5)
[2019-09-24] MEDS: IPRATROPIUM BROM 0.5MG/2.5ML NEB SCH ×4 (01:15→19:52)
[2019-09-24] MEDS: ARFORMOTEROL TARTRATE 15 MCG/2 ML VIAL.NEB NEB SCH ×2 (09:00→19:52)
[2019-09-24] MEDS: FLUTICASONE 50MCG NASAL SPRAY NAS SCH (09:18)
[2019-09-24] MEDS: POTASSIUM 25 MEQ EFFERV TAB PO SCH ×2 (09:19→20:28)
[2019-09-24] MEDS: predniSONE 10 MG TAB PO SCH ×2 (09:21→20:28)
[2019-09-24] MEDS: SPIRONOLACTONE 25 MG TABLET PO SCH ×2 (09:21→20:28)
[2019-09-24] MEDS: FUROSEMIDE 20 MG/ 2ML VIAL IV SCH (09:22)
[2019-09-24] MEDS: AMLODIPINE 5 MG TAB PO SCH (09:22)
[2019-09-24] MEDS: ASPIRIN 81 MG CHEWABLE TABLET PO SCH (09:23)
[2019-09-24] MEDS: ENOXAPARIN 40 MG/0.4 ML SQ SCH (09:23)
[2019-09-24] MEDS: GUAIFENESIN/DM 5 ML UCUP PO PRN ×2 (09:24→20:27)
[2019-09-24] MEDS: ALBUTEROL 2.5 MG/3 ML NEB SOL NEB PRN (13:00)
[2019-09-24] MEDS: HYDRALAZINE HCL 20 MG/ML VIAL IV PRN (20:28)
[2019-09-25] MEDS: IPRATROPIUM BROM 0.5MG/2.5ML NEB SCH ×3 (01:42→14:04)
[2019-09-25 05:25] VITALS: BMI 35.3
[2019-09-25] MEDS: ARFORMOTEROL TARTRATE 15 MCG/2 ML VIAL.NEB NEB SCH (08:17)
[2019-09-25 08:19] VITALS: TEMP 97.3
[2019-09-25] MEDS: FUROSEMIDE 20 MG/ 2ML VIAL IV SCH (09:09)
[2019-09-25] MEDS: AMLODIPINE 5 MG TAB PO SCH (09:10)
[2019-09-25] MEDS: ASPIRIN 81 MG CHEWABLE TABLET PO SCH (09:10)
[2019-09-25] MEDS: ENOXAPARIN 40 MG/0.4 ML SQ SCH (09:10)
[2019-09-25] MEDS: predniSONE 10 MG TAB PO SCH (09:10)
[2019-09-25] MEDS: POTASSIUM 25 MEQ EFFERV TAB PO SCH (09:10)
[2019-09-25] MEDS: SPIRONOLACTONE 25 MG TABLET PO SCH (09:10)
[2019-09-25] MEDS: FLUTICASONE 50MCG NASAL SPRAY NAS SCH (09:11)
[2019-09-25 16:08] VITALS: O2SAT 91
[2019-09-25 16:27] VITALS: BP 130/78
== END 2019-09-25 16:39 | disposition home or self-care (01) | DRG 208 ==
LOC: ER 17:04 → ERHOLD 18:17 → 4TH 20:20 → 3RD-ICU 09-16 12:00 → 4TH 09-20 14:18
PROVIDERS: ADMIT Internal Medicine; ATTEND Internal Medicine
PROC: 5A1945Z Respiratory Ventilation, 24-96 Consecutive Hours (ICD-10-PCS; principal; 2019-09-16)
PROC: 0BH17EZ Insertion of Endotracheal Airway into Trachea, Via Natural or Artificial Opening (ICD-10-PCS; 2019-09-16)
PROC: 5A09357 Assistance with Respiratory Ventilation, Less than 24 Consecutive Hours, Continuous Positive Airway Pressure (ICD-10-PCS; 2019-09-21)
DX: J44.1 Chronic obstructive pulmonary disease with (acute) exacerbation (principal); J96.22 Acute and chronic respiratory failure with hypercapnia; J96.21 Acute and chronic respiratory failure with hypoxia; I10 Essential (primary) hypertension
CPT/HCPCS: 36415; 71045; 80048; 80076; 81003; 82805; 82947; 83605; 83735; 83880; 84484; 85025; 85610; 87040; 87070; 87086; 87088; 87205; 93005; 93306; 94002; 94003; 94640; 94660; 94760; 96365; 96367; 96375; 99291; J0360; J0456; J0692; J0696; J1630; J1650; J1940; J2250; J2405; J2704; J2920; J2930; J3010; J7030; J7512; J7605

== ENCOUNTER 2019-12-15 19:45 | Inpatient (IN) | payer SELFPAY ==
[2019-12-15] MEDS ORDERED: METHYLPREDNISOLONE 125 MG INJ ONE (20:28)
[2019-12-15] MEDS ORDERED: IPRATROPIUM BROM 0.5MG/2.5ML ONE (20:28)
[2019-12-15] MEDS ORDERED: FUROSEMIDE 40 MG/4 ML VIAL ONE (20:29)
[2019-12-15] MEDS ORDERED: LEVALBUTEROL 1.25 MG/3 ML NEB ONE (20:29)
--- NOTE | 2019-12-15 20:29 | EDPHYS ---
Physician Documentation [facility] Name: Kathy Montalvo Age: 59 yrs Sex: Female : 1960 Arrival Date: 12/15/2019 Time: 19:47 Bed 3 Private MD: ED Physician Jett Camacho HPI: 12/14 20:20 This 59 yrs old Black Female presents to ER via Wheelchair with complaints of Shortness belkis Of Breath, COPD Exacerbation. 20:20 The patient has shortness of breath at rest, with light activity. Onset: The belkis symptoms/episode began/occurred 3 day(s) ago. Duration: The symptoms. The patient's shortness of breath has no apparent modifying factors. Associated signs and symptoms: Pertinent positives: non-productive cough. Severity of symptoms: At their worst the symptoms were moderate in the emergency department the symptoms are unchanged. The patient has experienced similar episodes in the past, several times. Historical: - Allergies: 19:58 No Known Allergies; ll1 - PMHx: 19:58 Hypertension; COPD; Asthma; ll1 - Immunization history:: Adult Immunizations up to date. - Social history:: Smoking status: Patient/guardian denies using tobacco, Stopped _ months ago 10 Patient/guardian denies using street drugs. ROS: 20:22 Constitutional: Negative for fever, chills, and weight loss, Eyes: Negative for injury, belkis pain, redness, and discharge, ENT: Negative for injury, pain, and discharge, Neck: Negative for injury, pain, and swelling, Abdomen/GI: Negative for abdominal pain, nausea, vomiting, diarrhea, and constipation, Back: Negative for injury and pain, : Negative for injury, bleeding, discharge, and swelling, Skin: Negative for injury, rash, and discoloration, Neuro: Negative for headache, weakness, numbness, tingling, and seizure, Psych: Negative for depression, anxiety, suicide ideation, homicidal ideation, and hallucinations, Allergy/Immunology: Negative for hives, rash, and allergies, Endocrine: Negative for neck swelling, polydipsia, polyuria, polyphagia, and marked weight changes, Hematologic/Lymphatic: Negative for swollen nodes, abnormal bleeding, and unusual bruising. 20:22 Cardiovascular: Positive for palpitations. 20:22 Respiratory: Positive for cough, shortness of breath, wheezing, expiratory. 20:22 MS/extremity: Positive for swelling, of the right leg and left leg. Exam: 20:23 Constitutional: This is a well developed, well nourished patient who is awake, alert, belkis and in no acute distress. Head/Face: Normocephalic, atraumatic. Eyes: Pupils equal round and reactive to light, extra-ocular motions intact. Lids and lashes normal. Conjunctiva and sclera are non-icteric and not injected. Cornea within normal limits. Periorbital areas with no swelling, redness, or edema. ENT: Nares patent. No nasal discharge, no septal abnormalities noted. Tympanic membranes are normal and external auditory canals are clear. Oropharynx with no redness, swelling, or masses, exudates, or evidence of obstruction, uvula midline. Mucous membranes moist. Neck: Trachea midline, no thyromegaly or masses palpated, and no cervical lymphadenopathy. Supple, full range of motion without nuchal rigidity, or vertebral point tenderness. No Meningismus. Chest/axilla: Normal chest wall appearance and motion. Nontender with no deformity. No lesions are appreciated. Abdomen/GI: Soft, non-tender, with normal bowel sounds. No distension or tympany. No guarding or rebound. No evidence of tenderness throughout. Back: No spinal tenderness. No costovertebral tenderness. Full range of motion. Female : Normal external genitalia. Skin: Warm, dry with normal turgor. Normal color with no rashes, no lesions, and no evidence of cellulitis. Neuro: Awake and alert, GCS 15, oriented to person, place, time, and situation. Cranial nerves II-XII grossly intact. Motor strength 5/5 in all extremities. Sensory grossly intact. Cerebellar exam normal. Normal gait. Psych: Awake, alert, with orientation to person, place and time. Behavior, mood, and affect are within normal limits. 20:23 Cardiovascular: Rate: tachycardic, Rhythm: regular, Pulses: Pulses are 4+ in bilateral radial, brachial, femoral, popliteal, posterior tibial and and dorsalis pedis arteries.. Heart sounds: normal, Edema: 2+ edema to level of left midcalf and right midcalf, JVD: is noted bilaterally, to 2 cm. 20:27 ECG was reviewed by the Attending Physician. [facility] Vital Signs: 19:56 BP 159 / 89; Pulse 134; Resp 22; Temp 97.4; Pulse Ox 89% on R/A; Pain 7/10; ll1 20:18 BP 131 / 70; Pulse 125; Resp 22 S; Pulse Ox 92% on 2 lpm NC; jd3 20:37 BP 127 / 78; Pulse 113; Resp 18 S; Pulse Ox 93% on 2 lpm NC; jd3 21:01 BP 155 / 84; Pulse 114; Resp 19; Pulse Ox 97% on BiPAP; jd3 21:56 BP 136 / 89; Pulse 118; Resp 18 S; Pulse Ox 98% on BiPAP; jd3 23:03 BP 123 / 83; Pulse 110; Resp 20 S; Pulse Ox 97% on BiPAP; jd3 12/15 00:07 BP 120 / 75; Pulse 104; Resp 17; Pulse Ox 97% on BiPAP; rv MDM: 12/14 19:57 Patient medically screened. [facility] 20:23 Data reviewed: vital signs, nurses notes, lab test result(s), EKG, radiologic studies, belkis plain films. 20:24 Differential diagnosis: asthma, CHF exacerbation, Chronic Obstructive Pulmonary Disease belkis bronchitis, flu, pneumonia, pulmonary edema, Pulmonary Embolism reactive airway disease, Sepsis. Antibiotic administration: Levaquin given. The patient's Wells Deep Vein Thrombosis Score was calculated as follows: Heart Rate >100 BPM (1.5 Pts) Total Score: 0-2 Pts- Low Risk. The patient's pulmonary embolism risk score was calculated as follows: the patients heart rate is greater than 100 beats per minute (1.5 Pts) Total Score: 0-2 points. This patient was found to be at low risk for a pulmonary embolism by using the Well's assessment criteria. Immunization status: Influenza vaccine: within last 5 years. Data interpreted: manager monitoring: rate is 125 beats/min, rhythm is normal sinus rhythm, Pulse oximetry: on room air is 89 %. Test interpretation: by ED physician or midlevel provider: ECG, plain radiologic studies. Counseling: I had a detailed discussion with the patient and/or guardian regarding: the historical points, exam findings, and any diagnostic results supporting the discharge/admit diagnosis, the presence of at least one elevated blood pressure reading (>120/80) during this emergency department visit, lab results, radiology results, the need for further work-up and treatment in the hospital. ED course: copd exacerbation, dw dr gilliam and the patient, will admit full, hx of respiratory failure. 21:03 ED course: 7.31/66.4/74.3/32.4. [facility] 12/14 20:02 Order name: Basic Metabolic Panel; Complete Time: 21:[address] [facility] 12/14 20:02 Order name: CBC with Diff; Complete Time: 20:[address] [facility] 12/14 20:02 Order name: LFT's; Complete Time: 21:[address] [facility] 12/14 20:02 Order name: Magnesium; Complete Time: 21:[address] [facility] 12/14 20:02 Order name: NT PRO-BNP; Complete Time: 21:[address] [facility] 12/14 20:02 Order name: Troponin (emerg Dept Use Only); Complete Time: 21:[address] [facility] 12/14 20:02 Order name: Blood Culture Adult (2) [facility] 12/14 20:02 Order name: ABG; Complete Time: 21:[address] [facility] 12/14 20:02 Order name: Lactate; Complete Time: 21:[address] [facility] 12/14 20:02 Order name: Influenza Screen (a \T\ B) [facility] 12/14 21:06 Order name: Urine Dipstick--Ancillary (enter results) [facility] 12/14 23:22 Order name: Comprehensive Metabolic Panel [facility] 12/14 23:22 Order name: Comprehensive Metabolic Panel [facility] 12/14 23:22 Order name: Lipid Profile [facility] 12/14 20:02 Order name: XRAY Chest (1 view) [facility] 12/14 20:02 Order name: BIPAP [facility] 12/14 23:22 Order name: Lipid Profile [facility] 12/14 23:22 Order name: Magnesium [facility] 12/14 23:22 Order name: Magnesium [facility] 12/14 23:22 Order name: NT PRO-BNP [facility] 12/14 23:22 Order name: NT PRO-BNP [facility] 12/14 23:22 Order name: Phosphorus [facility] 12/14 23:22 Order name: Phosphorus [facility] 12/14 23:22 Order name: Troponin I [facility] 12/14 23:22 Order name: Troponin I [facility] 12/14 23:22 Order name: Troponin I [facility] 12/14 23:22 Order name: Troponin I [facility] 12/14 23:24 Order name: CBC with Automated Diff [facility] 12/14 23:24 Order name: CBC with Automated Diff [facility] 12/14 20:02 Order name: EKG; Complete Time: 20:[address] [facility] 12/14 20:02 Order name: Cardiac monitoring; Complete Time: 20:[address] [facility] 12/14 20:02 Order name: EKG - Nurse/Tech; Complete Time: 20:[address] [facility] 12/14 20:02 Order name: IV Saline Lock; Complete Time: 20:[address] [facility] 12/14 20:02 Order name: Labs collected and sent; Complete Time: 20:[address] [facility] 12/14 20:02 Order name: O2 Per Protocol; Complete Time: 20:[address] [facility] 12/14 20:02 Order name: O2 Sat Monitoring; Complete Time: 20:[address] [facility] 12/14 20:02 Order name: Urine Dipstick-Ancillary (obtain specimen); Complete Time: 21:[address] [facility] 12/14 23:24 Order name: CONS Physician Consult [facility] 12/14 23:24 Order name: Heart Healthy [facility] EC:27 Rate is 118 beats/min. Rhythm is regular. QRS [place] is Normal. MA interval is normal. [facility] QRS interval is normal. QT interval is normal. No Q waves. T waves are Normal. No ST changes noted. Clinical impression: Sinus tachycardia. Interpreted by me. Reviewed by me. Administered Medications: 20:32 Drug: SOLU-Medrol 125 mg Route: IVP; Site: right antecubital; jd3 21:13 Follow up: Response: No adverse reaction jd3 20:32 Drug: AtroVENT Aerosol 0.5 mg Route: Inhalation; jd3 21:13 Follow up: Response: No adverse reaction jd3 20:33 Drug: Xopenex 3.75 mg Route: Inhalation; jd3 21:13 Follow up: Response: No adverse reaction jd3 20:33 Drug: Lasix 40 mg Route: IVP; Site: right antecubital; jd3 21:12 Follow up: Response: No adverse reaction jd3 20:52 Drug: levofloxacin 500 mg Volume: 100 ml; Route: IVPB; Infused Over: 60 mins; Site: jd3 right antecubital; 21:52 Follow up: Response: No adverse reaction; IV Status: Completed infusion; IV Intake: jd3 100ml Disposition: 12/15/19 20:28 Hospitalization ordered by Leonor Gilliam for Inpatient Admission. Preliminary diagnosis are Hypoxemia, Obesity, unspecified, Chronic obstructive pulmonary disease with (acute) exacerbation, Respiratory failure, unspecified with hypercapnia, Acidosis - respiratory. - Bed requested for Telemetry/MedSurg (Inpatient). - Status is Inpatient Admission. rv - Condition is Fair. - Problem is an acute exacerbation. - Symptoms have improved. Signatures: Dispatcher [employer] EDJett Anne MD MD cha Lasagna, Tonya, RN RN tl1 Bk Weaver RN RN jd3 Jose Manuel Soliz RN RN rv Staci Betancourt RN RN ll1 Corrections: (The following items were deleted from the chart) 21: 20:28 Hospitalization Ordered by Leonor Gilliam MD for Inpatient Admission. Preliminary [facility] diagnosis is Hypoxemia; Obesity, unspecified; Chronic obstructive pulmonary disease with (acute) exacerbation. Bed requested for Telemetry/MedSurg (Inpatient). Status is Inpatient Admission. Condition is Fair. Problem is an acute exacerbation. Symptoms have improved. [facility] : 21:12/15/2019 20:28 Hospitalization Ordered by Leonor Gilliam MD for Inpatient tl1 Admission. Preliminary diagnosis is Hypoxemia; Obesity, unspecified; Chronic obstructive pulmonary disease with (acute) exacerbation; Respiratory failure, unspecified with hypercapnia; Acidosis - respiratory. Bed requested for Telemetry/MedSurg (Inpatient). Status is Inpatient Admission. Condition is Fair. Problem is an acute exacerbation. Symptoms have improved. [facility] 12/15 00:05 06/02 23:29 12/15/2019 20:28 Hospitalization Ordered by Leonor Gilliam MD for Inpatient rv Admission. Preliminary diagnosis is Hypoxemia; Obesity, unspecified; Chronic obstructive pulmonary disease with (acute) exacerbation; Respiratory failure, unspecified with hypercapnia; Acidosis - respiratory. Bed requested for Telemetry/MedSurg (Inpatient). Status is Inpatient Admission. Condition is Fair. Problem is an acute exacerbation. Symptoms have improved. tl1
--- NOTE | 2019-12-15 20:29 | ER ---
Nurse's Notes [facility] Name: Kathy Montalvo Age: 59 yrs Sex: Female : 1960 Arrival Date: 12/15/2019 Time: 19:47 Bed 3 Private MD: Diagnosis: Hypoxemia;Obesity, unspecified;Chronic obstructive pulmonary disease with (acute) exacerbation;Respiratory failure, unspecified with hypercapnia;Acidosis-respiratory Presentation: 12/14 19:56 Chief complaint: Patient states: Cough with SOB for 3 days. No fever. Coronavirus ll1 screen: Proceed with normal triage. Patient reports a cough. Patient reports shortness of breath or difficulty breathing. Patient denies measured and/or subjective temperature greater than 100.4F prior to today's visit. Patient denies travel on a cruise ship or to a country the [facility] currently lists as an affected area. Patient denies contact with known and/or suspected case of COVID-19. consulted with RN taking care of patient. Ebola Screen: Patient denies travel to an Ebola-affected area in the 21 days before illness onset. Initial Sepsis Screen: Does the patient meet any 2 criteria? RR > 20 per min. HR > 90 bpm. Yes Does the patient have a suspected source of infection? Yes: Productive cough/pneumonia. Risk Assessment: Do you want to hurt yourself or someone else? Patient reports no desire to harm self or others. Onset of symptoms was December 12, 2019. 19:56 Method Of Arrival: Wheelchair ll1 19:56 Acuity: ABDIRIZAK 2 ll1 Triage Assessment: 20:40 Respiratory: Onset: The symptoms/episode began/occurred pt stated "3 days ago.", the jd3 patient has moderate shortness of breath. Historical: - Allergies: 19:58 No Known Allergies; ll1 - PMHx: 19:58 Hypertension; COPD; Asthma; ll1 - Immunization history:: Adult Immunizations up to date. - Social history:: Smoking status: Patient/guardian denies using tobacco, Stopped _ months ago 10 Patient/guardian denies using street drugs. Screenin:40 Abuse screen: Denies threats or abuse. Nutritional screening: No deficits noted. jd3 Tuberculosis screening: No symptoms or risk factors identified. Fall Risk IV access (20 points). Ambulatory Aid- None/Bed Rest/Nurse Assist (0 pts). Gait- Normal/Bed Rest/Wheelchair (0 pts) Mental Status- Oriented to own ability (0 pts). Total Mead Fall Scale indicates No Risk (0-24 pts). Assessment: 20:02 General: Appears in no apparent distress. uncomfortable, Behavior is calm, cooperative, jd3 appropriate for age. Pain: Complains of pain in right foot, left foot, right leg and left leg Quality of pain is described as aching, pressure, squeezing. Neuro: Level of Consciousness is awake, alert, obeys commands, Oriented to person, place, time, situation. Cardiovascular: Denies chest pain, Heart tones S1 S2 present Capillary refill < 3 seconds Patient's skin is warm and dry. Rhythm is sinus tachycardia. Respiratory: Reports shortness of breath at rest on exertion cough that is persistent Airway is patent Respiratory effort is labored, shallow, Respiratory pattern is symmetrical, tachypnea Breath sounds are diminished bilaterally. GI: Abdomen is round Abd is soft and non tender X 4 quads. Patient currently denies abdominal pain, diarrhea, nausea, vomiting. : No signs and/or symptoms were reported regarding the genitourinary system. EENT: No signs and/or symptoms were reported regarding the EENT system. Derm: Skin is intact, Skin is dry, Skin is normal, Skin temperature is warm. Musculoskeletal: Circulation, motion, and sensation intact. Range of motion: intact in all extremities, Swelling present in right foot, left foot, right leg and left leg. 20:41 Reassessment: Patient and/or family updated on plan of care and expected duration. Pain jd3 level reassessed. Patient is alert, oriented x 3, equal unlabored respirations, skin warm/dry/pink. Patient states feeling better. Respiratory: Airway is patent Respiratory effort is even, unlabored, Respiratory pattern is regular, symmetrical, Breath sounds are diminished bilaterally. 21:00 Reassessment: No changes from previously documented assessment. Patient and/or family jd3 updated on plan of care and expected duration. Pain level reassessed. Patient is alert, oriented x 3, equal unlabored respirations, skin warm/dry/pink. respiratory therapist at bedside placing pt on a BIPAP. 21:17 Reassessment: Received critical lab value: lactate 3.8. Repeat in [address] jimmy Camacho. 21:57 Reassessment: Patient and/or family updated on plan of care and expected duration. Pain jd3 level reassessed. Patient is alert, oriented x 3, equal unlabored respirations, skin warm/dry/pink. awaiting admission Patient states feeling better. 23:03 Reassessment: No changes from previously documented assessment. Patient and/or family jd3 updated on plan of care and expected duration. Pain level reassessed. Patient is alert, oriented x 3, equal unlabored respirations, skin warm/dry/pink. 12/15 00:05 Reassessment: Patient and/or family updated on plan of care and expected duration. Pain jd3 level reassessed. Patient is alert, oriented x 3, equal unlabored respirations, skin warm/dry/pink. report given to Sola PEDERSEN. Vital Signs: 12/14 19:56 BP 159 / 89; Pulse 134; Resp 22; Temp 97.4; Pulse Ox 89% on R/A; Pain 7/10; ll1 20:18 BP 131 / 70; Pulse 125; Resp 22 S; Pulse Ox 92% on 2 lpm NC; jd3 20:37 BP 127 / 78; Pulse 113; Resp 18 S; Pulse Ox 93% on 2 lpm NC; jd3 21:01 BP 155 / 84; Pulse 114; Resp 19; Pulse Ox 97% on BiPAP; jd3 21:56 BP 136 / 89; Pulse 118; Resp 18 S; Pulse Ox 98% on BiPAP; jd3 23:03 BP 123 / 83; Pulse 110; Resp 20 S; Pulse Ox 97% on BiPAP; jd3 12/15 00:07 BP 120 / 75; Pulse 104; Resp 17; Pulse Ox 97% on BiPAP; rv ED Course: 12/14 19:47 Patient arrived in ED. cf2 19:57 Jett Camacho MD is Attending Physician. belkis 19:58 Triage completed. ll1 19:58 Arm band placed on Patient placed in an exam room, on a stretcher. ll1 19:59 Jose Manuel Soliz RN is Primary Nurse. rv 20:13 Inserted saline lock: 20 gauge in right antecubital area, using aseptic technique. jd3 Blood collected. 20:28 Leonor Silva MD is Hospitalizing Provider. belkis 20:41 Patient has correct armband on for positive identification. Placed in gown. Bed in low jd3 position. Call light in reach. Side rails up X2. court recording monitor on. Pulse ox on. NIBP on. 20:46 XRAY Chest (1 view) In Process Unspecified. EDMS 23:37 No provider procedures requiring assistance completed. Patient admitted, IV remains in jd3 place. Administered Medications: 20:32 Drug: SOLU-Medrol 125 mg Route: IVP; Site: right antecubital; jd3 21:13 Follow up: Response: No adverse reaction jd3 20:32 Drug: AtroVENT Aerosol 0.5 mg Route: Inhalation; jd3 21:13 Follow up: Response: No adverse reaction jd3 20:33 Drug: Xopenex 3.75 mg Route: Inhalation; jd3 21:13 Follow up: Response: No adverse reaction jd3 20:33 Drug: Lasix 40 mg Route: IVP; Site: right antecubital; jd3 21:12 Follow up: Response: No adverse reaction jd3 20:52 Drug: levofloxacin 500 mg Volume: 100 ml; Route: IVPB; Infused Over: 60 mins; Site: jd3 right antecubital; 21:52 Follow up: Response: No adverse reaction; IV Status: Completed infusion; IV Intake: jd3 100ml Intake: 21:52 IV: 100ml; Total: 100ml. jd3 Outcome: 20:28 Decision to Hospitalize by Provider. belkis 23:37 Admitted to Med/surg accompanied by juan, via stretcher, room 209, with chart, Report jd3 called to Sola PEDERSEN 23:37 Condition: stable 23:37 Instructed on the need for admit, Demonstrated understanding of instructions. 12/15 00:05 Patient left the ED. rv Signatures: Dispatcher [employer] EDMS Jett Camacho MD MD cha Davies, Jonathon, RN RN jd3 Jose Manuel Soliz RN RN rv Frazier, Celesta cf2 Francie Briggs RN Staci Guerrero RN RN ll1 Corrections: (The following items were deleted from the chart) 12/14 21:13 21:01 Pulse 114bpm; Resp 19bpm; Pulse Ox 97% BiPAP; jd3 jd3 12/15 02:06 02:05 Reassessment: Patient and/or family updated on plan of care and expected jd3 duration. Pain level reassessed. Patient is alert, oriented x 3, equal unlabored respirations, skin warm/dry/pink. jd3
[2019-12-15 20:34] LABS: Hematocrit 46.4 % (36.0-45.0); Lymphocytes % 10.9 % (15.3-44.8); MPV 9.8 fL (7.6-11.3); RBC Red Blood Cell Count 5.17 M/uL (3.86-4.86)
[2019-12-15] MEDS ORDERED: Levofloxacin500mg IV 500 MG/100 ML BAG IV ONE (20:51)
[2019-12-15 20:55] LABS: Arterial Blood Carboxyhemoglob 1.2 % (0-1.5); Blood Gas Oxyhemoglobin 91.6 % (94-97); Blood O2 Saturation 93.7 % (92-98.5)
[2019-12-15 21:06] LABS: ALT/SGPT 188 U/L (12-78); Albumin 3.6 g/dL (3.4-5.0); Alkaline Phosphatase 150 U/L (45-117); BUN Blood Urea Nitrogen 23 mg/dL (7-18); Bicarbonate 31 mmol/L (21-32); Bilirubin Direct < 0.1 mg/dL (0-0.2); Bilirubin Total 0.4 mg/dL (0.2-1.0); Glucose Level 274 mg/dL (74-106); NT PRO-BNP 48 pg/mL (<125); Protein, Total 7.8 g/dL (6.4-8.2); Sodium Level 137 mmol/L (136-145); Troponin (Emerg Dept Use Only) < 0.02 ng/mL (0.0-0.045)
[2019-12-15 21:11] LABS: Potassium 4.3 mmol/L (3.5-5.1)
[2019-12-15 21:12] LABS: AST/SGOT 94 U/L (15-37); Magnesium 1.9 mg/dL (1.8-2.4)
--- NOTE | 2019-12-15 21:21 | RAD REPORT ---
EXAM DESCRIPTION: Adri Single View12/15/2019 8:45 pm CLINICAL HISTORY: cough COMPARISON: September 2019 FINDINGS: The lungs appear clear of acute infiltrate. The heart is normal size IMPRESSION: No acute abnormalities displayed
[2019-12-15] MEDS ORDERED: CEFTRIAXONE/SWI 1gm 1 GM/10 ML SYR IV SCH (23:00)
[2019-12-15] MEDS ORDERED: AZITHROMYCIN IV 500 MG in NA CHLORIDE 0.9% 250 ML IVPB SCH (23:00)
[2019-12-15] MEDS ORDERED: ONDANSETRON 4 MG/2 ML VIAL IV PRN (23:12)
[2019-12-15 23:14] LABS: Urine Blood TRACE (NEG); Urine Glucose 2+ (NEG); Urine Protein NEGATIVE (NEG)
[2019-12-15] MEDS ORDERED: NA CHLORIDE 0.9% 1,000 ML IV SCH (23:45)
[2019-12-16 00:13] VITALS: BMI 38.5
[2019-12-16] MEDS: METHYLPREDNISOLONE 125 MG INJ IV SCH ×2 (00:52→05:22)
[2019-12-16] MEDS: ACETAMINOPHEN 500 MG TAB PO PRN ×2 (01:10→17:26)
[2019-12-16] MEDS ORDERED: AZITHROMYCIN 500 MG INJ IVPB ONE (01:40)
[2019-12-16] MEDS ORDERED: NA CHLORIDE 0.9% 250 ML ONE (01:45)
[2019-12-16] MEDS: IPRATROPIUM BROM 0.5MG/2.5ML NEB SCH ×4 (01:45→19:35)
[2019-12-16] MEDS: ALBUTEROL 2.5 MG/3 ML NEB SOL NEB SCH ×4 (01:45→19:35)
[2019-12-16] MEDS ORDERED: MORPHINE 4 MG/ML SYR IV PRN (02:42)
[2019-12-16 05:33] LABS: Absolute Lymphocytes (CBC) 0.8 K/uL (0.7-4.9); Basophils % 0.8 % (0-1.3); Hematocrit 43.6 % (36.0-45.0); Lymphocytes % 7.8 % (15.3-44.8); RBC Red Blood Cell Count 4.89 M/uL (3.86-4.86)
[2019-12-16 06:06] LABS: ALT/SGPT 185 U/L (12-78); Albumin 3.5 g/dL (3.4-5.0); Alkaline Phosphatase 135 U/L (45-117); BUN Blood Urea Nitrogen 25 mg/dL (7-18); Bicarbonate 30 mmol/L (21-32); Bilirubin Total 0.3 mg/dL (0.2-1.0); Glucose Level 288 mg/dL (74-106); HDL Cholesterol 68 mg/dL (40-60); LDL Cholesterol, Calculated 170 (<130); NT PRO-BNP 60 pg/mL (<125); Phosphorus 3.5 mg/dL (2.5-4.9); Protein, Total 7.4 g/dL (6.4-8.2); Sodium Level 138 mmol/L (136-145); Troponin I < 0.02 ng/mL (0.0-0.045)
[2019-12-16 06:14] LABS: AST/SGOT 86 U/L (15-37); Potassium 4.8 mmol/L (3.5-5.1)
--- NOTE | 2019-12-16 08:24 | P.CNS ---
Date of Consult: 12/16/19 Reason for Consult: COPD exacerbation Chief Complaint: Shortness of breath productive cough chest pain History of Present Illness: Patient is 59 years of age recurrent hospital admissions became worse over the past 3 days started having more shortness of breath, a productive cough denies any fever also with experiencing some retrosternal chest pain radiating to the back duration variable improved with antacids patient does not have insurance uses inhalers Allergies No Known Allergies Allergy (Unverified 12/29/18 17:50) Home Medications: Albuterol Sulfate [Albuterol Sulfate 0.083% Neb Soln] 1 aero NEB QID 09/15/19 Albuterol Sulfate [Proair Hfa] 2 puff IH QID 09/15/19 Amlodipine [Norvasc*] 1 tab PO DAILY 09/15/19 Pantoprazole Sodium [Protonix] 1 tab PO DAILY 09/15/19 Spironolact/Hydrochlorothiazid [Spironolactone-Hctz 25-25 Tab] 1 tab PO DAILY 09/15/19 predniSONE [Deltasone*] 10 mg PO DAILY #90 tab 09/25/19 Budesonide/Formoterol Fumarate [Symbicort 160-4.5 Mcg Inhaler] 2 puff IH BID 12/16/19 Fluticasone [Flonase 50MCG Nasal [place]*] 2 puff IH BID 12/16/19 - Past Medical/Surgical History Diabetic: No -: COPD -: HTN -: Asthma -: bronchitis -: D & C 4x for miscarriages - Family History Mother Medical History: Heart disease, Hypertension, Kidney disease Notes: dialysis Father Medical History: Hypertension, Diabetes Notes: heavy smoker/drinker Brother Medical History: Diabetes Sister Medical History: Hypertension Notes: osteoarthritis. heart failure - Social History Smoking Status: Current every day smoker Alcohol use: Yes CD- Drugs: No Caffeine use: Yes Place of Residence: Home Review of Systems Respiratory: Cough, Shortness of Breath Cardiovascular: Edema Physical Examination Temp Pulse Resp BP Pulse Ox 97.4 F 107 H 18 106/71 94 12/16/19 04:00 12/16/19 04:00 12/16/19 04:00 12/16/19 04:00 12/16/19 04:00 General: Alert, In no apparent distress HEENT: Atraumatic Neck: Supple Respiratory: Clear to auscultation bilaterally, Diminished Cardiovascular: Regular rate/rhythm, Normal S1 S2, Edema Laboratory Data (last 24 hrs) 12/15/19 20:13: WBC 9.0, Hgb 14.7, Hct 46.4 H, Plt Count 164 12/15/19 20:13: Sodium 137, Potassium 4.3, BUN 23 H, Creatinine 1.12, Glucose 274 H, Magnesium 1.9, Total Bilirubin 0.4, AST 94 H, ALT 188 H, Alkaline Phosphatase 150 H - Problems (1) COPD exacerbation Current Visit: No Status: Acute Plan: Patient is 59 years of age recurrent hospital admissions admitted with worsening dyspnea and chest pain patient has abnormal liver function tests suspect she may have underlying fatty liver I also suspect that she has underlying sleep apnea over patient does not have any insurance to have any sleep studies done chest x- rays clear cardiology Consul high risk for coronary artery disease continue with bronchodilators sputum cultures patient's lipid profile also very abnormal probably has underlying peptic ulcer disease
[2019-12-16] MEDS: PANTOPRAZOLE 40MG TABLET PO SCH ×2 (08:47→17:21)
[2019-12-16] MEDS: predniSONE 20 MG TAB PO SCH ×2 (08:47→20:59)
[2019-12-16] MEDS: levoFLOXacin 500 MG TAB PO SCH (08:47)
[2019-12-16] MEDS: ENOXAPARIN 40 MG/0.4 ML SQ SCH (08:52)
--- NOTE | 2019-12-16 09:06 | P.HP ---
Certification for Inpatient Patient admitted to: Inpatient With expected LOS: >2 Midnights Patient will require the following post-hospital care: None Practitioner: I am a practitioner with admitting privileges, knowledge of patient current condition, hospital course, and medical plan of care. Services: Services provided to patient in accordance with Admission requirements found in Title 42 Section 412.3 of the Code of Federal Regulations Patient History Date of Service: 12/16/19 Reason for admission: Shortness of breath productive cough chest pain History of Present Illness: Patient is a 59-year-old female came to the hospital with difficulty breathing. Patient states she has been getting short of breath from minimal ambulation. She has been coughing can congested. Patient denies having fever. Patient came into the hospital for further evaluation. In the emergency room patient was found have hypercapnia and hypoxemia. Patient will be admitted to the hospital for further evaluation. Will get an echocardiogram to further evaluate cardiac status. Will also repeat chest x-ray in 24-48 hr. Pulmonary consultation as well. Allergies No Known Allergies Allergy (Unverified 12/29/18 17:50) Home Medications: Albuterol Sulfate [Albuterol Sulfate 0.083% Neb Soln] 1 aero NEB QID 09/15/19 Albuterol Sulfate [Proair Hfa] 2 puff IH QID 09/15/19 Amlodipine [Norvasc*] 1 tab PO DAILY 09/15/19 Pantoprazole Sodium [Protonix] 1 tab PO DAILY 09/15/19 Spironolact/Hydrochlorothiazid [Spironolactone-Hctz 25-25 Tab] 1 tab PO DAILY 09/15/19 predniSONE [Deltasone*] 10 mg PO DAILY #90 tab 09/25/19 Budesonide/Formoterol Fumarate [Symbicort 160-4.5 Mcg Inhaler] 2 puff IH BID 12/16/19 Fluticasone [Flonase 50MCG Nasal [place]*] 2 puff IH BID 12/16/19 - Past Medical/Surgical History Has patient received pneumonia vaccine in the past: Yes Diabetic: No -: COPD -: HTN -: Asthma -: bronchitis -: D & C 4x for miscarriages - Family History Mother Medical History: Heart disease, Hypertension, Kidney disease Notes: dialysis Father Medical History: Hypertension, Diabetes Notes: heavy smoker/drinker Brother Medical History: Diabetes Sister Medical History: Hypertension Notes: osteoarthritis. heart failure - Social History Smoking Status: Former smoker Alcohol use: Yes CD- Drugs: No Caffeine use: Yes Place of Residence: Home Review of Systems 10-point ROS is otherwise unremarkable Physical Examination - Vital Signs Temperature: 97.0 F Blood Pressure: 142/84 Pulse: 90 Respirations: 20 Pulse Ox (%): 92 - Physical Exam General: Alert, In no apparent distress, Oriented x3 HEENT: Atraumatic, PERRLA, Mucous membr. moist/pink, EOMI, Sclerae nonicteric Neck: Supple, 2+ carotid pulse no bruit, No LAD, Without JVD or thyroid abnormality Respiratory: Diminished, Expiratory wheezes, Rhonchi/gurgles Cardiovascular: Regular rate/rhythm, Normal S1 S2, No murmurs Gastrointestinal: Normal bowel sounds, Soft and benign, Non-distended, No tenderness Musculoskeletal: No clubbing, No swelling, No tenderness Integumentary: No rashes Neurological: Normal gait, Normal speech, Normal strength at 5/5 x4 extr, Normal tone, Sensation intact, Cranial nerves 3-12 intact, Normal affect Lymphatics: No axilla or inguinal lymphadenopathy - Studies Laboratory Data (last 24 hrs) 12/15/19 20:13: WBC 9.0, Hgb 14.7, Hct 46.4 H, Plt Count 164 12/15/19 20:13: Sodium 137, Potassium 4.3, BUN 23 H, Creatinine 1.12, Glucose 274 H, Magnesium 1.9, Total Bilirubin 0.4, AST 94 H, ALT 188 H, Alkaline Phosphatase 150 H Microbiology Data (last 24 hrs): 12/15/19 20:16 Nasopharnyx Influenza Type A Antigen Screen - Final 12/15/19 20:16 Nasopharnyx Influenza Type B Antigen Screen - Final Assessment & Plan - Problems (Diagnosis) (1) COPD exacerbation Current Visit: No Status: Acute (2) Respiratory failure Current Visit: No Status: Acute Qualifiers: Chronicity: acute on chronic (3) Sleep apnea Current Visit: No Status: Acute - Plan Plan: 1. Continue with albuterol and Atrovent nebs 2. Continue with IV steroids 3. Outpatient pulmonary function testing 4. Pulmonary consultation 5. Room air O2 sats 6. Repeat chest x-ray in the morning 7. GI and DVT prophylaxis Discharge Plan: Home Plan to discharge in: Greater than 2 days - Advance Directives Does patient have a Living Will: Yes Does patient have a Durable POA for Healthcare: Yes - Code Status/Comfort Care Code Status Assessed: Yes Code Status: Full Code Critical Care: No Time Spent Managing PTS Care (In Minutes): 45
[2019-12-16] MEDS ORDERED: IPRATROPIUM BROM 0.5MG/2.5ML NEB SCH (14:00)
--- NOTE | 2019-12-16 16:30 | EKG ---
Test Date: 2019-12-15 Test Time: 20:24:29 Increment Manager: TT MEASUREMENT RESULTS: Intervals: Rate: 118 SC: 158 QRSD: 78 QT: 306 QTc: 428 [place]: P: 72 SC: 158 QRS: 53 T: 74 INTERPRETIVE STATEMENTS: Sinus tachycardia Otherwise normal ECG Compared to ECG 09/14/2019 18:27:38 Atrial abnormality no longer present Electronically Signed On 12-16-19 16:27:37 CDT by Geoff Whaley
--- NOTE | 2019-12-16 17:00 | P.PN ---
Subjective Date of Service: 12/16/19 Chief Complaint: Shortness of breath productive cough chest pain Subjective: Improving Review of Systems General: Unremarkable Eyes: Unremarkable ENT: Unremarkable Respiratory: Shortness of Breath, As per HPI Cardiovascular: Unremarkable Gastrointestinal: Unremarkable Musculoskeletal: Unremarkable Integumentary: Unremarkable Neurological: Unremarkable Lymphatics: Unremarkable Physical Examination - Vital Signs Temperature: 97.1 F Blood Pressure: 139/78 Pulse: 92 Respirations: 20 Pulse Ox (%): 94 - Physical Exam General: Alert, In no apparent distress, Oriented x3 HEENT: Atraumatic, Normocephalic Neck: Supple Respiratory: Clear to auscultation bilaterally, Normal air movement Cardiovascular: Normal S1 S2 Capillary refill: <2 Seconds Gastrointestinal: Normal bowel sounds Musculoskeletal: No clubbing, No swelling Integumentary: No significant lesion Neurological: Normal gait, Normal speech - Studies Laboratory Data (last 24 hrs) 12/15/19 20:13: WBC 9.0, Hgb 14.7, Hct 46.4 H, Plt Count 164 12/15/19 20:13: Sodium 137, Potassium 4.3, BUN 23 H, Creatinine 1.12, Glucose 274 H, Magnesium 1.9, Total Bilirubin 0.4, AST 94 H, ALT 188 H, Alkaline Phosphatase 150 H Microbiology Data (last 24 hrs): 12/15/19 20:16 Nasopharnyx Influenza Type A Antigen Screen - Final 12/15/19 20:16 Nasopharnyx Influenza Type B Antigen Screen - Final Assessment & Plan Discharge Plan: Home Plan to discharge in: 24 Hours - Code Status/Comfort Care Code Status Assessed: Yes (Patient is full code) Physician Review Additional Text: Assessment Acute on chronic respiratory failure secondary to COPD Likely diagnosis of sleep apnea Elevated liver function tests Plan Acute on chronic respiratory failure secondary to COPD: Patient doing much better today, is currently on oxygen therapy with 3 L per nasal cannula. Patient has home oxygen currently have 3 L per nasal cannula. Patient oral steroids and bronchodilators. Patient also has multiple risk factors for coronary artery disease. Patient has consult for cardiology and will be evaluated. Plan is to discharge likely a next 24 hr assuming that she is cleared from a cardiology standpoint. DVT prophylaxis with Lovenox. Recommend outpatient pulmonary function test. Likely diagnosis of sleep apnea: Will recommend follows up on outpatient basis with pulmonology for possible sleep study. Elevated liver function tests: Hepatitis panel and ultrasound of the liver have been ordered. Pending the results now. Anticipate fatty liver disease. Will provide patient with information regarding dietary changes and follow up. Critical Care: No Time Spent Managing Pts Care (In Minutes): 55
[2019-12-16] MEDS: ATORVASTATIN 10 MG TAB PO SCH (20:59)
[2019-12-16] MEDS: HOME MED 1 EA UNK (Budesonide/Formoterol Fumarate [Symbicort 160-4.5 Mcg Inhaler] 2 PUFF) IH SCH (21:00)
[2019-12-17] MEDS: IPRATROPIUM BROM 0.5MG/2.5ML NEB SCH ×4 (01:25→19:45)
[2019-12-17] MEDS: ALBUTEROL 2.5 MG/3 ML NEB SOL NEB SCH ×4 (01:25→19:45)
--- NOTE | 2019-12-17 08:31 | RAD REPORT ---
EXAM DESCRIPTION: US - Abdomen Exam Complete - 12/17/2019 8:00 am CLINICAL HISTORY: Abdominal pain abnormal liver function tests enzymes COMPARISON: none FINDINGS: The liver has an increased echotexture. The gallbladder contains a moderate amount of sludge. A 8 millimeter gallstone. The gallbladder wall is not thickened. The biliary tree is normal caliber. Limited evaluation the pancreas, abdominal aorta and IVC secondary to overlying bowel gas The right kidney measures 11 centimeters with a normal echotexture. The left kidney measures 10 centimeters with a normal echotexture. The spleen measures 9 centimeters. IMPRESSION: Increased hepatic echotexture consistent with fatty infiltration Moderate gallbladder sludge Cholelithiasis without evidence cholecystitis
--- NOTE | 2019-12-17 08:45 | ECHO ---
HEIGHT: 5 ft 6 in WEIGHT: 238 lb 9 oz DATE OF STUDY: 12/16/[address]: Leonor Silva MD 2-DIMENSIONAL: YES M.MODE: YES DOPPLER: YES COLOR FLOW: YES TDS: YES PORTABLE: NO DEFINITY: NO BUBBLE STUDY: NO DIAGNOSIS: CHEST PAIN, RULE OUT ACS CARDIAC HISTORY: CATHERIZATION: NO SURGERY: NO PROSTHETIC VALVE: NO PACEMAKER: NO MEASUREMENTS (cm) DIASTOLIC (NORMALS) SYSTOLIC (NORMALS) IVSd 1.0 (0.6-1.2) LA Diam 2.8 (1.9-4.0) LVEF 71% LVIDd 3.7 (3.5-5.7) LVIDs 2.2 (2.0-3.5) %FS 40% LVPWd 1.1 (0.6-1.2) Ao Diam 2.7 (2.0-3.7) 2 DIMENSIONAL ASSESSMENT: RIGHT ATRIUM: NORMAL LEFT ATRIUM: NORMAL RIGHT VENTRICLE: NORMAL LEFT VENTRICLE: NORMAL TRICUSPID VALVE: NORMAL MITRAL VALVE: NORMAL PULMONIC VALVE: NORMAL AORTIC VALVE: NORMAL PERICARDIAL EFFUSION: NONE AORTIC ROOT: NORMAL LEFT VENTRICULAR WALL MOTION: NORMAL DOPPLER/COLOR FLOW: NORMAL COMMENTS: NORMAL 2D ECHOCARDIOGRAM WITH DOPPLER. NO WALL MOTION ABNORMALITY. NO EFFUSION. TECHNOLOGIST: Brianda RUIZ
[2019-12-17] MEDS: PANTOPRAZOLE 40MG TABLET PO SCH ×2 (08:53→16:28)
[2019-12-17] MEDS: levoFLOXacin 500 MG TAB PO SCH (08:53)
[2019-12-17] MEDS: predniSONE 20 MG TAB PO SCH ×2 (08:53→21:13)
[2019-12-17] MEDS: AMLODIPINE 5 MG TAB PO SCH (08:53)
[2019-12-17] MEDS: HOME MED 1 EA UNK (Budesonide/Formoterol Fumarate [Symbicort 160-4.5 Mcg Inhaler] 2 PUFF) IH SCH ×2 (09:00→21:00)
--- NOTE | 2019-12-17 09:57 | EKG ---
Test Date: 2019-12-16 Test Time: 02:35:11 Priming Machine Operator: RT MEASUREMENT RESULTS: Intervals: Rate: 114 ME: 168 QRSD: 70 QT: 318 QTc: 438 [place]: P: 79 ME: 168 QRS: 60 T: 71 INTERPRETIVE STATEMENTS: Sinus tachycardia Right atrial enlargement Borderline ECG Compared to ECG 12/15/2019 20:24:29 Atrial abnormality now present Electronically Signed On 12-17-19 09:54:11 CDT by Geoff Whaley
[2019-12-17] MEDS ORDERED: LIDOCAINE 1% MPF 30 ML VIAL ONE (12:23)
[2019-12-17] MEDS ORDERED: HEPA 1000U/500MLS 2,000 UNIT/1,000 ML BAG IV ONE (12:23)
[2019-12-17] MEDS ORDERED: NA CHLORIDE 0.9% 500 ML ONE (15:09)
[2019-12-17] MEDS ORDERED: NITROGLYCERIN 100 MCG/ML SYR (for cath lab use only) IV ONE (15:16)
[2019-12-17] MEDS ORDERED: FENTANYL CITR 100 MCG/2 ML ONE (15:16)
[2019-12-17] MEDS ORDERED: HEPARIN 5000 UNIT/ML 1 ML VIAL ONE (15:16)
[2019-12-17] MEDS ORDERED: NICARDIPINE HCL 25 MG/10 ML IV ONE (15:16)
[2019-12-17] MEDS ORDERED: MIDAZOLAM HCL 2 MG/2 ML INJ ONE (15:16)
[2019-12-17] MEDS ORDERED: ATROPINE SULF 1 MG/10 ML SYR IV ONE (15:17)
--- NOTE | 2019-12-17 17:41 | P.PN ---
Subjective Date of Service: 12/17/19 Chief Complaint: Shortness of breath productive cough chest pain Subjective: Improving, Doing well Physical Examination - Vital Signs Temperature: 98.2 F Blood Pressure: 136/81 Pulse: 92 Respirations: 16 Pulse Ox (%): 99 - Physical Exam General: Alert, In no apparent distress, Cooperative HEENT: Atraumatic Neck: Supple Respiratory: Clear to auscultation bilaterally, Normal air movement Cardiovascular: Normal pulses, Regular rate/rhythm Gastrointestinal: Normal bowel sounds Neurological: Normal speech, Normal strength at 5/5 x4 extr, Normal tone, Normal affect - Studies Medications List Reviewed: Yes Assessment & Plan Discharge Plan: Home Plan to discharge in: 24 Hours Physician Review Additional Text: Assessment Acute on chronic respiratory failure secondary to COPD Likely diagnosis of sleep apnea Elevated liver function tests Plan Acute on chronic respiratory failure secondary to COPD: Patient is doing much better. Continue to wean off oxygen. Patient has oxygen at home. Cardiology plans for heart catheterization today. Await findings. Anticipate discharge in the next 24 hr after heart catheterization or further recommendations by Cardiology. Will try to arrange for home health at discharge. Likely diagnosis of sleep apnea: Will recommend follows up on outpatient basis with pulmonology for possible sleep study. Elevated liver function tests: Hepatitis panel and ultrasound of the liver have been ordered. Pending the results now. Anticipate fatty liver disease. Will provide patient with information regarding dietary changes and follow up. Time Spent Managing Pts Care (In Minutes): 55
[2019-12-17] MEDS: ATORVASTATIN 10 MG TAB PO SCH (21:13)
[2019-12-18] MEDS: ACETAMINOPHEN 500 MG TAB PO PRN (01:08)
[2019-12-18] MEDS: ALBUTEROL 2.5 MG/3 ML NEB SOL NEB SCH ×4 (01:37→19:40)
[2019-12-18] MEDS: IPRATROPIUM BROM 0.5MG/2.5ML NEB SCH ×4 (01:37→19:40)
[2019-12-18] MEDS: levoFLOXacin 500 MG TAB PO SCH (08:15)
[2019-12-18] MEDS: predniSONE 20 MG TAB PO SCH (08:15)
[2019-12-18] MEDS: AMLODIPINE 5 MG TAB PO SCH (08:15)
[2019-12-18] MEDS: PANTOPRAZOLE 40MG TABLET PO SCH ×2 (08:15→16:24)
[2019-12-18] MEDS: ENOXAPARIN 40 MG/0.4 ML SQ SCH (08:16)
[2019-12-18] MEDS: FUROSEMIDE 40 MG/4 ML VIAL IV SCH ×2 (08:19→08:56)
[2019-12-18] MEDS: HOME MED 1 EA UNK (Budesonide/Formoterol Fumarate [Symbicort 160-4.5 Mcg Inhaler] 2 PUFF) IH SCH (09:00)
--- NOTE | 2019-12-18 11:54 | EKG ---
Test Date: 2019-12-16 Test Time: 09:01:59 Express Clerk: MARYANA MEASUREMENT RESULTS: Intervals: Rate: 104 TN: 166 QRSD: 72 QT: 332 QTc: 436 [place]: P: 78 TN: 166 QRS: 65 T: 79 INTERPRETIVE STATEMENTS: Sinus tachycardia Otherwise normal ECG Compared to ECG 12/16/2019 02:35:11 Atrial abnormality no longer present Electronically Signed On 12-18-19 11:50:32 CDT by Geoff Whaley
--- NOTE | 2019-12-18 12:57 | P.PN ---
Subjective Date of Service: 12/18/19 Chief Complaint: Shortness of breath productive cough chest pain Subjective: No new changes, Improving Review of Systems General: Unremarkable Eyes: Unremarkable ENT: Unremarkable Respiratory: Shortness of Breath (Mild) Cardiovascular: Unremarkable Gastrointestinal: Unremarkable Genitourinary: Unremarkable Musculoskeletal: Unremarkable Neurological: Unremarkable Lymphatics: Unremarkable Physical Examination - Vital Signs Temperature: 97.6 F Blood Pressure: 125/68 Pulse: 108 Respirations: 20 Pulse Ox (%): 96 - Physical Exam General: Alert, In no apparent distress, Oriented x3 HEENT: Atraumatic, Normocephalic Neck: Supple Respiratory: Clear to auscultation bilaterally, Normal air movement Cardiovascular: Normal pulses Capillary refill: <2 Seconds Gastrointestinal: Normal bowel sounds, Soft and benign Musculoskeletal: No clubbing, No swelling Integumentary: No rashes, No significant lesion Neurological: Normal speech - Studies Medications List Reviewed: Yes Assessment & Plan Discharge Plan: Home Plan to discharge in: 24 Hours - Code Status/Comfort Care Code Status Assessed: Yes Physician Review Additional Text: Assessment Acute on chronic respiratory failure secondary to COPD Likely diagnosis of sleep apnea Elevated liver function tests Plan Acute on chronic respiratory failure secondary to COPD: Patient is doing much better. Patient currently requiring 3 L per nasal cannula which is what she is prescribed for home use. Heart catheterization performed by cardiology was clear. Patient with mild shortness of breath still. Will continue with diuretics overnight. Chest x-ray done today will evaluate results in the morning. Patient states she feels like she is almost ready to go home. Anticipate discharge in the next 24 hr. Likely diagnosis of sleep apnea: Will recommend follows up on outpatient basis with pulmonology for possible sleep study. Elevated liver function tests: Hepatitis panel and ultrasound of the liver have been ordered. Pending the results now. Anticipate fatty liver disease. Will provide patient with information regarding dietary changes and follow up. Time Spent Managing Pts Care (In Minutes): 55
--- NOTE | 2019-12-18 12:59 | RAD REPORT ---
EXAM DESCRIPTION: Adir Tran And Rodriguez (2 Views)12/18/2019 12:37 pm CLINICAL HISTORY: Cough COMPARISON: December 15, 2019 FINDINGS: The lungs appear clear of acute infiltrate. The heart is normal size IMPRESSION: No acute abnormalities displayed
--- NOTE | 2019-12-18 14:51 | P.PN ---
Subjective Date of Service: 12/18/19 Chief Complaint: Shortness of breath productive cough chest pain Subjective: Improving (Patient is improving recent cardiac catheterization did not show any evidence of coronary artery disease she may have underlying diastolic dysfunction normal echo still little short of breath) Review of Systems General: Weakness Respiratory: Shortness of Breath Cardiovascular: Chest Pain Physical Examination - Vital Signs Temperature: 97.6 F Blood Pressure: 125/68 Pulse: 108 Respirations: 20 Pulse Ox (%): 96 - Physical Exam General: Alert, In no apparent distress, Oriented x3 HEENT: Atraumatic Neck: Supple Respiratory: Clear to auscultation bilaterally Cardiovascular: No edema, Regular rate/rhythm - Studies Medications List Reviewed: Yes Assessment & Plan - Problems (Diagnosis) (1) COPD exacerbation Current Visit: No Status: Acute Plan: Patient admitted with COPD exacerbation she will require long-acting bronchodilators low-dose of steroids cardiac catheterization was negative for coronary artery disease patient has chronic lithiasis and fatty liver probably has underlying diastolic dysfunction patient is on spironolactone and hydrochlorothiazide at home continue that an also added low-dose Lasix patient does not have any insurance she also need a sleep study as an outpatient I have advised her to use Dulera 2 puffs once a day and broncho and nebulizers probably benefit from Actos blood sugar is elevated will check hemoglobin A1c
--- NOTE | 2019-12-18 20:42 | PN ---
Date of Progress Note: 12/18/2019 Ms. Montalvo was admitted with shortness of breath, unstable angina, had a left heart catheterization b y Dr. Hewitt yesterday via right wrist approach. She was found to have minimal coronary artery disea se. Overnight, she has no cardiac complaint. She is in normal rhythm. No fever. Her right wrist s ite of catheter insertion appears to be intact without any hematoma. Her chest is clear. Her extrem ities revealed 1+ edema. Still complaining of some dyspnea on exertion, but no chest pain. The case was discussed with Dr. Kulkarni. We will continue her respiratory therapy. No cardiac therapy indica addie at this point. She can go home whenever it is okay with Dr. Kulkarni. JARED/PAULY Voice ID: [id number] Report ID: [id number]
[2019-12-18] MEDS: predniSONE 10 MG TAB PO SCH (21:06)
[2019-12-18] MEDS: ATORVASTATIN 10 MG TAB PO SCH (21:06)
[2019-12-18] MEDS: SPIRONOLACTONE 25 MG TABLET PO SCH (21:06)
[2019-12-18] MEDS: DULERA 200/5 (MOMETASONE/FORMOTEROL) INHALER IH SCH (21:07)
[2019-12-19] MEDS: ALBUTEROL 2.5 MG/3 ML NEB SOL NEB SCH ×3 (01:40→12:29)
[2019-12-19] MEDS: IPRATROPIUM BROM 0.5MG/2.5ML NEB SCH ×3 (01:40→12:29)
[2019-12-19 03:06] LABS: HBsAG Nonreactive (Nonreactive)
[2019-12-19] MEDS: SPIRONOLACTONE 25 MG TABLET PO SCH (08:15)
[2019-12-19] MEDS: PANTOPRAZOLE 40MG TABLET PO SCH (08:15)
[2019-12-19] MEDS: predniSONE 10 MG TAB PO SCH (08:15)
[2019-12-19] MEDS: ENOXAPARIN 40 MG/0.4 ML SQ SCH (08:15)
[2019-12-19] MEDS: DULERA 200/5 (MOMETASONE/FORMOTEROL) INHALER IH SCH (08:16)
[2019-12-19] MEDS ORDERED: FUROSEMIDE 40 MG TABLET PO SCH (09:00)
[2019-12-19 12:01] VITALS: O2SAT 92
--- NOTE | 2019-12-19 12:17 | P.DS ---
Admission Date: 12/15/19 Discharge Date: 12/19/19 Primary Care Provider: matilde, Pulmonary-Dr. Clarke Disposition: ROUTINE DISCHARGE Discharge Condition: GOOD Reason for Admission: Shortness of breath productive cough chest pain Consultations: Cardiology-Dr. Whaley Pulmonary-Dr. Clarke Procedures: ECHO: Ejection fraction 71% LEFT VENTRICULAR WALL MOTION: NORMAL DOPPLER/COLOR FLOW: NORMAL COMMENTS: NORMAL 2D ECHOCARDIOGRAM WITH DOPPLER. NO WALL MOTION ABNORMALITY. NO EFFUSION. Abdominal ultrasound: FINDINGS: The liver has an increased echotexture. The gallbladder contains a moderate amount of sludge. A 8 millimeter gallstone. The gallbladder wall is not thickened. The biliary tree is normal caliber. Limited evaluation the pancreas, abdominal aorta and IVC secondary to overlying bowel gas The right kidney measures 11 centimeters with a normal echotexture. The left kidney measures 10 centimeters with a normal echotexture. The spleen measures 9 centimeters. IMPRESSION: Increased hepatic echotexture consistent with fatty infiltration Moderate gallbladder sludge Cholelithiasis without evidence cholecystitis Heart Catheterization: Minimal CAD noted. No stent required. Medical therapy recommended Follow up chest x-ray: COMPARISON: December 15, 2019 FINDINGS: The lungs appear clear of acute infiltrate. The heart is normal size IMPRESSION: No acute abnormalities displayed Medical Problem List: Dyspnea secondary to acute on chronic respiratory failure with hypercapnia/hypoxia related to COPD exacerbation, advanced COPD oxygen dependent, complicated with acute on chronic diastolic CHF Hypertension CAD status post heart catheterization showing minimal disease Suspect underlying obstructive sleep apnea Fatty liver with noted elevated liver function GERD Mixed Hyperlipidemia Obesity, BMI 38.5 Brief History of Present Illness: 59-year-old female presented to emergency room with shortness of breath. Patient with history of COPD oxygen dependent, hypertension, obesity. Patient found to be hypercapnic and hypoxic. Patient admitted for treatment. Hospital Course: Patient presented with dyspnea secondary to acute on chronic respiratory failure with hypercapnia/hypoxia related to COPD exacerbation, advanced COPD oxygen dependent, complicated with acute on chronic diastolic CHF. The patient was admitted and treated. Patient seen and evaluated by pulmonology and Cardiology. Patient responded well to medication including diuresis and COPD medication. Cardiology was consulted to rule out underlying heart disease. Heart catheterization was recommended. Heart catheterization showed minimal CAD. No stent required. Cardiology recommended medical therapy. At discharge patient has done well with diuresis and adjustment in medication. For her COPD patient will continue with prednisone 10 mg 1 pill twice daily for 5 days then 1 pill once daily for 5 days. At discharge patient will continue with Dulera 2 puffs twice daily and Pro air 2 puffs 3 times a day as needed for shortness of breath. Patient has Symbicort at home. She may either use Symbicort or Dulera. Patient will continued with home oxygen to maintain sats above 93%. Recommendations for the patient follow up with pulmonology in 1 week to follow up this hospitalization and to obtained refills. As mentioned above patient with acute on chronic diastolic CHF. Medications have been adjusted. Patient previously on Aldactone/hydrochlorothiazide. This was discontinued. Patient was diuresed with Aldactone and Lasix. This has improved. At discharge she will continue with a 1500 cc per day fluid restriction and low-salt diet. Recommend to monitor her weight daily. If her weight increases by more than 5 lb, she is to contact pulmonology or PCP to further address. At discharge she will continue with Aldactone 25 mg 1 pill twice daily and Lasix 40 mg daily. Further adjustment in medication can be done by her PCP or pulmonology. As mentioned above patient with CAD status post heart catheterization showing minimal disease. At discharge she will continue with aspirin 81 mg daily and fish oil 2 pill twice daily. Recommend to follow up with cardiology to further monitor and address. Patient with fatty liver with noted elevated liver function. Hepatitis panel negative. Recommend GI evaluation as an outpatient to further address. Patient with hypertension. Medications have been adjusted. Metoprolol added to her regimen. She will no longer take Aldactone/hydrochlorothiazide. At discharge patient will continue with Norvasc 5 mg daily and metoprolol 12.5 mg 1 pill twice daily. May need to hold metoprolol if blood pressure less than 110 systolic or heart rate less than 50. Recommend to maintain blood pressure less 150/80. Further adjustment can be done by her PCP or pulmonology. Patient with mixed hyperlipidemia. At discharge patient will continue with fish oil 1000 mg 2 pills twice daily. Recommend to recheck fasting lipid panel in 4- 6 weeks to monitor her progress. Consider statin medication in the future if liver function improved. Patient with GERD. At discharge she may continue with Protonix 40 mg daily. Patient was found to have gallstones. Recommend a non fatty diet. Will provide education on gallstones. This can be further addressed by surgery as an outpatient if patient reports right upper quadrant abdominal pain. Patient likely with underlying obstructive sleep apnea. Recommend to follow up with pulmonology to further evaluate further. Patient will need sleep study to further address and treat. Vital Signs/Physical Exam: Temp Pulse Resp BP Pulse Ox 97.1 F 103 H 20 159/88 H 93 12/19/19 08:00 12/19/19 08:15 12/19/19 08:00 12/19/19 08:15 12/19/19 08:00 General: Alert, In no apparent distress, Oriented x3, Cooperative HEENT: Atraumatic Neck: Supple Respiratory: Clear to auscultation bilaterally, Normal air movement Cardiovascular: Normal pulses, Regular rate/rhythm Gastrointestinal: Normal bowel sounds, Soft and benign, Non-distended, No tenderness, No masses, No rebound, No guarding Musculoskeletal: No erythema, No tenderness, No warmth Integumentary: No tenderness/swelling, No erythema, No warmth, No cyanosis Neurological: Normal speech, Normal strength at 5/5 x4 extr, Normal tone, Normal affect Laboratory Data at Discharge: WBC 9.9 K/uL (4.3-10.9) 12/16/19 05:03 Hgb 13.7 g/dL (12.0-15.0) 12/16/19 05:03 Hct 43.6 % (36.0-45.0) 12/16/19 05:03 Plt Count 168 K/uL (152-406) 12/16/19 05:03 Sodium 138 mmol/L (136-145) 12/16/19 05:03 Potassium 4.8 mmol/L (3.5-5.1) 12/16/19 05:03 BUN 25 mg/dL (7-18) H 12/16/19 05:03 Creatinine 1.18 mg/dL (0.55-1.3) 12/16/19 05:03 Glucose 288 mg/dL (74-106) H 12/16/19 05:03 Phosphorus 3.5 mg/dL (2.5-4.9) 12/16/19 05:03 Magnesium 2.0 mg/dL (1.8-2.4) 12/16/19 05:03 Total Bilirubin 0.3 mg/dL (0.2-1.0) 12/16/19 05:03 AST 86 U/L (15-37) H 12/16/19 05:03 ALT 185 U/L (12-78) H 12/16/19 05:03 Alkaline Phosphatase 135 U/L (45-117) H 12/16/19 05:03 Troponin I 0.02 ng/mL (0.0-0.045) 12/18/19 05:34 Triglycerides 386 mg/dL (<150) H 12/16/19 05:03 Cholesterol 315 mg/dL (<200) H 12/16/19 05:03 HDL Cholesterol 68 mg/dL (40-60) H 12/16/19 05:03 Cholesterol/HDL Ratio 4.63 12/16/19 05:03 Home Medications: Amlodipine [Norvasc*] 1 tab PO DAILY 09/15/19 Pantoprazole Sodium [Protonix] 1 tab PO DAILY 09/15/19 Budesonide/Formoterol Fumarate [Symbicort 160-4.5 Mcg Inhaler] 2 puff IH BID 12/16/19 Albuterol Sulfate [Albuterol Sulfate 0.083% Neb Soln] 3 ml NEB QID PRN #120 ml 12/19/19 Albuterol Sulfate [Proair Hfa] 2 puff IH QID PRN #1 12/19/19 Aspirin [Aspirin EC 81 MG] 81 mg PO DAILY #90 tablet. 12/19/19 Docosahexanoic AC/Epa [Fish Oil 1,000 MG CAP] 2 cap PO BID #120 cap 12/19/19 Fluticasone [Flonase 50MCG Nasal [place]*] 1 puff IN BID #1 btl 12/19/19 Furosemide [Lasix*] 40 mg PO DAILY #30 tab 12/19/19 Metoprolol Tartrate [Lopressor*] 12.5 mg PO BID 6AM 6PM #60 tab 12/19/19 Mometasone/Formoterol [Dulera 200 Mcg/5 Mcg Inhaler] 2 puff IH BID #1 inhaler 12/19/19 Spironolactone [Aldactone*] 25 mg PO BID #60 tab 12/19/19 predniSONE [Deltasone*] 10 mg PO SEECOM #15 tab 12/19/19 New Medications: Albuterol Sulfate [Albuterol Sulfate 0.083% Neb Soln] 3 ml NEB QID PRN #120 ml PRN Reason: Shortness Of Breath Spironolactone [Aldactone*] 25 mg PO BID #60 tab Aspirin [Aspirin EC 81 MG] 81 mg PO DAILY #90 tablet. predniSONE [Deltasone*] 10 mg PO SEECOM #15 tab Mometasone/Formoterol [Dulera 200 Mcg/5 Mcg Inhaler] 2 puff IH BID #1 inhaler Docosahexanoic AC/Epa [Fish Oil 1,000 MG CAP] 2 cap PO BID #120 cap Fluticasone [Flonase 50MCG Nasal [place]*] 1 puff IN BID #1 btl Furosemide [Lasix*] 40 mg PO DAILY #30 tab Metoprolol Tartrate [Lopressor*] 12.5 mg PO BID 6AM 6PM #60 tab Albuterol Sulfate [Proair Hfa] 2 puff IH QID PRN #1 PRN Reason: Shortness Of Breath Patient Discharge Instructions: 1. Recommend follow up with PCP in 1 week to follow up this hospitalization. 2. Patient presented with dyspnea secondary to acute on chronic respiratory failure with hypercapnia/hypoxia related to COPD exacerbation, advanced COPD oxygen dependent, complicated with acute on chronic diastolic CHF. The patient was admitted and treated. Patient seen and evaluated by pulmonology and Cardiology. Patient responded well to medication including diuresis and COPD medication. Cardiology was consulted to rule out underlying heart disease. Heart catheterization was recommended. Heart catheterization showed minimal CAD. No stent required. Cardiology recommended medical therapy. At discharge patient has done well with diuresis and adjustment in medication. For her COPD patient will continue with prednisone 10 mg 1 pill twice daily for 5 days then 1 pill once daily for 5 days. At discharge patient will continue with Dulera 2 puffs twice daily and Pro air 2 puffs 3 times a day as needed for shortness of breath. Patient has Symbicort at home. She may either use Symbicort or Dulera. Patient will continued with home oxygen to maintain sats above 93%. Recommendations for the patient follow up with pulmonology in 1 week to follow up this hospitalization and to obtained refills. 3. As mentioned above patient with acute on chronic diastolic CHF. Medications have been adjusted. Patient previously on Aldactone/hydrochlorothiazide. This was discontinued. Patient was diuresed with Aldactone and Lasix. This has improved. At discharge she will continue with a 1500 cc per day fluid restriction and low-salt diet. Recommend to monitor her weight daily. If her weight increases by more than 5 lb, she is to contact pulmonology or PCP to further address. At discharge she will continue with Aldactone 25 mg 1 pill twice daily and Lasix 40 mg daily. Further adjustment in medication can be done by her PCP or pulmonology. 4. As mentioned above patient with CAD status post heart catheterization showing minimal disease. At discharge she will continue with aspirin 81 mg daily and fish oil 2 pill twice daily. Recommend to follow up with cardiology to further monitor and address. 5. Patient with fatty liver with noted elevated liver function. Hepatitis panel negative. Recommend GI evaluation as an outpatient to further address. 6. Patient with hypertension. Medications have been adjusted. Metoprolol added to her regimen. She will no longer take Aldactone/hydrochlorothiazide. At discharge patient will continue with Norvasc 5 mg daily and metoprolol 12.5 mg 1 pill twice daily. May need to hold metoprolol if blood pressure less than 110 systolic or heart rate less than 50. Recommend to maintain blood pressure less 150/80. Further adjustment can be done by her PCP or pulmonology. 7. Patient with mixed hyperlipidemia. At discharge patient will continue with fish oil 1000 mg 2 pills twice daily. Recommend to recheck fasting lipid panel in 4-6 weeks to monitor her progress. Consider statin medication in the future if liver function improved. 8. Patient with GERD. At discharge she may continue with Protonix 40 mg daily. 9. Patient was found to have gallstones. Recommend a non fatty diet. Will provide education on gallstones. This can be further addressed by surgery as an outpatient if patient reports right upper quadrant abdominal pain. 10. Patient likely with underlying obstructive sleep apnea. Recommend to follow up with pulmonology to further evaluate further. Patient will need sleep study to further address and treat. Diet: AHA Activity: Fall precautions Time spent managing pt's care (in minutes): 55
[2019-12-19 12:26] VITALS: BP 157/91; TEMP 97.3
[2019-12-19] MEDS ORDERED: METOPROLOL TAR 25 MG TAB PO SCH (18:00)
--- NOTE | 2019-12-21 09:34 | CON ---
Substernal Chest pain radiating to the arms. Denied any PND, orthopnea, pedal edema, palpitation, or syncope. Denied any fever or chills or cough. Past Medical History: As stated above. Allergies: NONE. Review of Systems: Negative. Social History: Positive for tobacco and alcohol use. Family History: Positive for heart disease and hypertension. Medications: At home include inhalers, Protonix, prednisone, Norvasc, Aldactone with hydrochlorothiazide. Physical Examination: General: patient was stable when I saw her, she was continuing to have intermittent chest pains. She remained short of breath. Vital Signs: Stable. She was afebrile. She was in a sinus rhythm. HEENT: Negative. Neck: Supple without any bruit, lymphadenopathy, JVD, or thyromegaly. Chest: Revealed expiratory wheezing. No rales. Cardiac: Revealed a regular rhythm and rate with an S4 gallops. No murmurs or rubs. Abdomen: Obese, but benign. Extremities: Revealed 1+ edema. No clubbing. No cyanosis. Diagnostic Data: Glucose was 288. Lactic acid was 3.2. Her AST was 85, ALT was 135. Her cholesterol was 315. Her triglyceride was 380. Her LDL is 170, HDL is 68. Chest x-ray is negative. EKG is negative. Echocardiogram in september 2019, showed normal ejection fraction with decreased left ventricular compliance. Impression And Plan: 59 year-old woman. She has obesity, positive for smoking, severe mixed dyslipidemia. Symptoms are consistent with unstable angina. She has significant chronic obstructive pulmonary disease and she will be at high risk of having a pharmacological stress test. I will plant to do a heart catheterization today with coronary arteriograms to define her coronary anatomy and proceed as appropriate. Patient understands the risk and the benefits of the procedure and she agreed to proceed. She should be on statins. She is on antibiotics, prednisone, and inhalers. May benefit from a low-dose beta joshua in addition to her Norvasc for diastolic dysfunction. Case was discussed with Dr. Kulkarni. JARED/PAULY Voice ID: [id number] Report ID: [id number] LAURA
== END 2019-12-19 13:43 | disposition home or self-care (01) | DRG 190 ==
LOC: ER 19:45 → ERHOLD 23:17 → 2ND 23:39
PROVIDERS: ADMIT Family Medicine; ATTEND Family Medicine
PROC: 4A023N7 Measurement of Cardiac Sampling and Pressure, Left Heart, Percutaneous Approach (ICD-10-PCS; principal; 2019-12-17)
PROC: B2111ZZ Fluoroscopy of Multiple Coronary Arteries using Low Osmolar Contrast (ICD-10-PCS; 2019-12-17)
DX: J44.1 Chronic obstructive pulmonary disease with (acute) exacerbation (principal); J96.22 Acute and chronic respiratory failure with hypercapnia; J96.21 Acute and chronic respiratory failure with hypoxia; I50.33 Acute on chronic diastolic (congestive) heart failure; G47.33 Obstructive sleep apnea (adult) (pediatric); F17.200 Nicotine dependence, unspecified, uncomplicated; I25.10 Atherosclerotic heart disease of native coronary artery without angina pectoris; I11.0 Hypertensive heart disease with heart failure; K21.9 Gastro-esophageal reflux disease without esophagitis; E78.2 Mixed hyperlipidemia; R79.89 Other specified abnormal findings of blood chemistry; E66.9 Obesity, unspecified; Z68.38 Body mass index [BMI] 38.0-38.9, adult; Z99.81 Dependence on supplemental oxygen; Z79.82 Long term (current) use of aspirin; Z79.899 Other long term (current) drug therapy; Z79.52 Long term (current) use of systemic steroids; Z20.828 Contact with and (suspected) exposure to other viral communicable diseases
CPT/HCPCS: 36415; 71045; 71046; 76700; 80048; 80053; 80061; 80074; 80076; 81003; 82805; 83036; 83605; 83735; 83880; 84100; 84484; 85025; 87040; 87070; 87205; 87804; 93005; 93306; 93454; 94640; 94660; 94760; 96365; 96375; 99285; C1893; J0456; J0696; J1644; J1650; J1940; J2250; J2930; J3010; J7030; J7040; J7512; J7606; U0002

== ENCOUNTER 2020-01-26 13:27 | Emergency (ER) | payer SELFPAY, OTHER ==
[2020-01-26 14:30] LABS: Absolute Lymphocytes (CBC) 1.2 K/uL (0.7-4.9); Hematocrit 45.2 % (36.0-45.0); Lymphocytes % 20.3 % (15.3-44.8); RBC Red Blood Cell Count 5.02 M/uL (3.86-4.86)
--- NOTE | 2020-01-26 15:01 | RAD REPORT ---
EXAM DESCRIPTION: Adri Single View01/26/2020 2:37 pm CLINICAL HISTORY: Shortness of breath COMPARISON: December 2019 FINDINGS: Lungs appear grossly clear. Heart is normal sized
[2020-01-26 15:06] LABS: Potassium 4.9 mmol/L (3.5-5.1)
--- NOTE | 2020-01-26 15:32 | ER ---
Nurse's Notes [facility] Name: Kathy Montalvo Age: 59 yrs Sex: Female : 1960 Arrival Date: 01/26/2020 Time: 13:28 Bed 10 Private MD: Diagnosis: Chronic obstructive pulmonary disease with (acute) exacerbation;Edema, unspecified Presentation: 01/25 13:33 Chief complaint: Patient states: Chest pain and SOB for 1 week. + cough. Coronavirus ll1 screen: Surgical mask placed on patient. Patient moved to private room, placed in contact and droplet isolation with eye protection until further assessment. Patient reports a cough. Patient reports shortness of breath or difficulty breathing. Patient denies measured and/or subjective temperature greater than 100.4F prior to today's visit. Patient denies travel on a cruise ship or to a country the [facility] currently lists as an affected area. Patient denies contact with known and/or suspected case of COVID-19. Ebola Screen: Patient denies travel to an Ebola-affected area in the 21 days before illness onset. Initial Sepsis Screen: Does the patient meet any 2 criteria? HR > 90 bpm. Risk Assessment: Do you want to hurt yourself or someone else? Patient reports no desire to harm self or others. Onset of symptoms was January 19, 2020. 13:33 Method Of Arrival: Wheelchair ll1 13:33 Acuity: ABDIRIZAK 2 ll1 13:37 Initial Sepsis Screen: Does the patient meet any 2 criteria? RR > 20 per min. Yes Does ll1 the patient have a suspected source of infection? Yes: Productive cough/pneumonia. Historical: - Allergies: 13:37 No Known Allergies; ll1 - PMHx: 13:37 COPD; Hypertension; Asthma; ll1 - Immunization history:: Adult Immunizations up to date. - Social history:: Smoking status: Patient/guardian denies using tobacco, Stopped _ months ago 6 Patient/guardian denies using alcohol, street drugs, tobacco products. Screenin:21 Abuse screen: Denies threats or abuse. Denies injuries from another. Nutritional ss screening: No deficits noted. Tuberculosis screening: Never had TB. Assessment: 14:21 General: Appears in no apparent distress. comfortable, Behavior is calm, cooperative. ss Pain: Denies pain. Neuro: Level of Consciousness is awake, alert, obeys commands, Oriented to person, place, time, situation. Cardiovascular: Capillary refill < 3 seconds is brisk in bilateral fingers. Cardiovascular: Pulses are palpable in right radial artery, right posterior tibial artery, left radial artery and left posterior tibial artery. Respiratory: Reports pain with respiration Airway is patent Respiratory effort is even, unlabored, Respiratory pattern is regular, symmetrical, Breath sounds are clear bilaterally. GI: Patient currently denies diarrhea, nausea, vomiting. Derm: Skin is pink, warm \T\ dry. normal. Musculoskeletal: Circulation, motion, and sensation intact. Range of motion: intact in all extremities, Swelling present in right foot and left foot onset of bilateral pedal edema was months. 15:44 Reassessment: Patient appears in no apparent distress at this time. Patient and/or ss family updated on plan of care and expected duration. Pain level reassessed. Patient is alert, oriented x 3, equal unlabored respirations, skin warm/dry/pink. Patient denies pain at this time. Vital Signs: 13:33 BP 178 / 145; Pulse 131; Resp 26; Temp 97.2; Pulse Ox 82% ; Pain 10/10; ll1 13:37 Pulse Ox 95% on 2 lpm NC; ll1 14:22 Pulse 105; ss 15:13 BP 141 / 96; Pulse 100; Resp 18; Pulse Ox 97% on 3 lpm NC; ss ED Course: 13:28 Patient arrived in ED. bp1 13:36 Triage completed. ll1 13:37 Arm band placed on. ll1 13:49 Andreia Romero FNP-C is [facility]. kb 13:49 Jett Camacho MD is Attending Physician. kb 14:21 Junie Chen, NUVIA is Primary Nurse. ss 14:21 No provider procedures requiring assistance completed. Inserted saline lock: 20 gauge ss in right Blood collected. 14:38 Chest Single View XRAY In Process Unspecified. EDMS 15:13 Patient has correct armband on for positive identification. Bed in low position. Call ss light in reach. 15:44 IV discontinued, intact, bleeding controlled, No redness/swelling at site. Pressure ss dressing applied. Administered Medications: No medications were administered Outcome: 15:31 Discharge ordered by . kb 15:44 Discharged to home via wheelchair, with family. ss 15:44 Condition: good 15:44 Discharge instructions given to patient, Instructed on discharge instructions, follow up and referral plans. medication usage, Demonstrated understanding of instructions, follow-up care, medications, Prescriptions given X 3. 16:02 Patient left the ED. ss Signatures: Dispatcher [employer] EDMS Andreia Romero, FLOTATION TANK OPERATOR-C FLOTATION TANK OPERATOR-Junie Rojas RN RN ss Staci Betancourt RN RN ll1 Olena Maldonado [facility]
--- NOTE | 2020-01-26 15:32 | EDPHYS ---
Physician Documentation [facility] Name: Kathy Montalvo Age: 59 yrs Sex: Female : 1960 Arrival Date: 01/26/2020 Time: 13:28 Bed 10 Private MD: ED Physician Jett Camacho HPI: 01/25 15:27 This 59 yrs old Black Female presents to ER via Wheelchair with complaints of Shortness kb Of Breath, Chest Pain. 15:27 The patient has not experienced similar symptoms in the past. The patient has not kb recently seen a physician. Pt reports shortness of breath on exertion that started a week ago. States she normally calls Dr Alvarez and he calls in antibiotics, but he said I had to come here this time and get checked for pneumonia because of the virus going around. . 15:30 The patient has shortness of breath with light activity. Onset: The symptoms/episode kb began/occurred 1 week(s) ago. Duration: The symptoms are continuous. The patient's shortness of breath is aggravated by exertion, is alleviated by nothing. Associated signs and symptoms: Pertinent positives: non-productive cough, Pertinent negatives: chest pain, productive cough, fever. Severity of symptoms: At their worst the symptoms were moderate in the emergency department the symptoms are unchanged. Historical: - Allergies: 13:37 No Known Allergies; ll1 - PMHx: 13:37 COPD; Hypertension; Asthma; ll1 - Immunization history:: Adult Immunizations up to date. - Social history:: Smoking status: Patient/guardian denies using tobacco, Stopped _ months ago 6 Patient/guardian denies using alcohol, street drugs, tobacco products. ROS: 15:27 Constitutional: Negative for fever, chills, and weight loss, Neck: Negative for injury, kb pain, and swelling, Cardiovascular: Negative for chest pain, palpitations, and edema, Abdomen/GI: Negative for abdominal pain, nausea, vomiting, diarrhea, and constipation, Back: Negative for injury and pain, MS/Extremity: Negative for injury and deformity, Skin: Negative for injury, rash, and discoloration, Neuro: Negative for headache, weakness, numbness, tingling, and seizure. 15:27 Respiratory: Positive for shortness of breath, on exertion. Negative for cough, dyspnea on exertion, hemoptysis, orthopnea, pleurisy, sputum production, wheezing. Exam: 15:27 Constitutional: This is a well developed, well nourished patient who is awake, alert, kb and in no acute distress. Head/Face: Normocephalic, atraumatic. Chest/axilla: Normal chest wall appearance and motion. Nontender with no deformity. No lesions are appreciated. Cardiovascular: Regular rate and rhythm with a normal S1 and S2. No gallops, murmurs, or rubs. Normal PMI, no JVD. No pulse deficits. Respiratory: Lungs have equal breath sounds bilaterally, clear to auscultation and percussion. No rales, rhonchi or wheezes noted. No increased work of breathing, no retractions or nasal flaring. Abdomen/GI: Soft, non-tender, with normal bowel sounds. No distension or tympany. No guarding or rebound. No evidence of tenderness throughout. Skin: Warm, dry with normal turgor. Normal color with no rashes, no lesions, and no evidence of cellulitis. MS/ Extremity: Pulses equal, no cyanosis. Neurovascular intact. Full, normal range of motion. Neuro: Awake and alert, GCS 15, oriented to person, place, time, and situation. Cranial nerves II-XII grossly intact. Motor strength 5/5 in all extremities. Sensory grossly intact. Cerebellar exam normal. Normal gait. 15:27 Cardiovascular: Edema: 2+ edema to level of left foot and right foot. Vital Signs: 13:33 BP 178 / 145; Pulse 131; Resp 26; Temp 97.2; Pulse Ox 82% ; Pain 10/10; ll1 13:37 Pulse Ox 95% on 2 lpm NC; ll1 14:22 Pulse 105; ss 15:13 BP 141 / 96; Pulse 100; Resp 18; Pulse Ox 97% on 3 lpm NC; ss MDM: 13:49 Patient medically screened. kb 15:23 Data reviewed: vital signs, nurses notes. Data interpreted: Pulse oximetry: on 3L(s) kb per nasal canula, pt is on 3-4L O2 at all times is 97 %. Interpretation: normal. Counseling: I had a detailed discussion with the patient and/or guardian regarding: the historical points, exam findings, and any diagnostic results supporting the discharge/admit diagnosis, lab results, radiology results, the need for outpatient follow up, a family practitioner, to return to the emergency department if symptoms worsen or persist or if there are any questions or concerns that arise at home. ED course: Discussed plan of care with pt. Pt in no distress. Breath sounds clear bilaterally, resp even and unlabored. Pt requests a refill of her diuretic because she ran out. States her legs have been swollen for months, they got a little less swollen during her last hospitalization, but never resolved. 01/25 14:00 Order name: CBC with Diff; Complete Time: 14:33 kb 01/25 14:00 Order name: Basic Metabolic Panel; Complete Time: 15:08 kb 01/25 13:59 Order name: Chest Single View XRAY; Complete Time: 15:08 kb 01/25 14:00 Order name: IV Start; Complete Time: 14:22 kb 01/25 14:24 Order name: EKG; Complete Time: 14:25 ss 01/25 14:24 Order name: EKG - Nurse/Tech; Complete Time: 15:21 ss Administered Medications: No medications were administered Disposition: 20:35 Co-signature as Attending Physician, Jett Camacho MD I agree with the assessment and belkis plan of care. Disposition: 01/26/20 15:31 Discharged to Home. Impression: Chronic obstructive pulmonary disease with (acute) exacerbation, Edema, unspecified. - Condition is Stable. - Discharge Instructions: Chronic Obstructive Pulmonary Disease Exacerbation, Edema, [id number]. - Prescriptions for Prednisone 20 mg Oral Tablet - take 1 tablet by ORAL route once daily for 5 days; 5 tablet. Lasix 40 mg Oral Tablet - take 1 tablet by ORAL route once daily for 30 days; 30 tablet. Zithromax 500 mg Oral Tablet - take 1 tablet by ORAL route once daily for 5 days; 5 tablet. - Medication Reconciliation Form, Thank You Letter, Antibiotic Education, Prescription Opioid Use form. - Follow up: Emergency Department; When: As needed; Reason: Worsening of condition. Follow up: Private Physician; When: 2 - 3 days; Reason: Recheck today's complaints, Continuance of care, Re-evaluation by your physician. Signatures: Dispatcher [employer] EDMS Andreia Romero, Jett Laird MD MD cha Smirch, Shelby, RN RN ss Staci Betancourt RN RN ll1 Corrections: (The following items were deleted from the chart) 15:31 15:27 Pt reports shortness of breath on exertion that started a few days ago. States kb she normally calls Dr Alvarez and he calls in antibiotics, but he said I had to come here this time and get checked for pneumonia because of the virus going around. . kb 15:31 15:31 01/26/2020 15:31 Discharged to Home. Impression: Chronic obstructive pulmonary kb disease with (acute) exacerbation. Condition is Stable. Forms are Medication Reconciliation Form, Thank You Letter, Antibiotic Education, Prescription Opioid Use. Follow up: Emergency Department; When: As needed; Reason: Worsening of condition. Follow up: Private Physician; When: 2 - 3 days; Reason: Recheck today's complaints, Continuance of care, Re-evaluation by your physician. kb 16:02 15:31 01/26/2020 15:31 Discharged to Home. Impression: Chronic obstructive pulmonary ss disease with (acute) exacerbation; Edema, unspecified. Condition is Stable. Forms are Medication Reconciliation Form, Thank You Letter, Antibiotic Education, Prescription Opioid Use. Follow up: Emergency Department; When: As needed; Reason: Worsening of condition. Follow up: Private Physician; When: 2 - 3 days; Reason: Recheck today's complaints, Continuance of care, Re-evaluation by your physician. kb
[2020-01-26 16:10] VITALS: TEMP 97.2
[2020-01-26 16:14] VITALS: BP 141/96; O2SAT 97
--- NOTE | 2020-01-27 07:46 | EKG ---
Test Date: 2020-01-26 Test Time: 14:33:39 Stone Grader: MARYANA MEASUREMENT RESULTS: Intervals: Rate: 100 HI: 162 QRSD: 82 QT: 332 QTc: 428 Kimper: P: 76 HI: 162 QRS: 58 T: 78 INTERPRETIVE STATEMENTS: Normal sinus rhythm Right atrial enlargement Cannot rule out Anterior infarct, age undetermined Abnormal ECG Compared to ECG 12/16/2019 09:01:59 Atrial abnormality now present Myocardial infarct finding now present Sinus tachycardia no longer present Electronically Signed On 01-27-20 07:44:33 CDT by Geoff Whaley
== END 2020-01-26 16:02 | disposition home or self-care (01) ==
LOC: ER 13:27
DX: J44.1 Chronic obstructive pulmonary disease with (acute) exacerbation (principal); R60.9 Edema, unspecified; I10 Essential (primary) hypertension
CPT/HCPCS: 36415; 71045; 80048; 85025; 93005; 99284